=== PATIENT | female | born 1935 | race Caucasian/White ===

== ENCOUNTER 2018-04-24 17:41 | Inpatient (IN) | payer MEDICARE ==
[~2018-04-24] VITALS: Ht 157.5 cm; Wt 39.0 kg
[~2018-04-24 17:41] MED LIST: CARV3.12 PO; CLON0.5T23 PO; COU1T PO; DIGO125T97 PO; FAMO-128 PO; LIDO30CR23 TP; PRAV40TA3 PO; TRAM50TA2 PO; WARF1TAB83 PO
[2018-04-24 18:36] LABS: CLARITY,URINE Cloudy (Clear); COLOR,URINE RED (Yellow); UA COLLECTION TYPE CLN CATCH MIDSTREAM
[2018-04-24 18:40] LABS: BACTERIA,URINE FEW /HPF (Neg); RBC,URINE TNTC /HPF (0-2); SQUAMOUS EPITHELIAL CELL,UR FEW /LPF (FEW)
[2018-04-24 19:03] LABS: BASOPHILS % (AUTO) 0.4 % (0-1); EOSINOPHILS # (AUTO) 0.2 X10'3 (0-0.9); EOSINOPHILS % (AUTO) 2.2 % (0-6); HEMOGLOBIN 13.2 g/dl (12.0-16.0); LYMPHOCYTES % (AUTO) 27.5 % (21-51); MEAN CORPUSCULAR HEMOGLOBIN 31.4 PG (27.0-31.0); MEAN CORPUSCULAR HGB CONC 31.4 % (33.0-36.5); MEAN CORPUSCULAR VOLUME 99.8 FL (78-98); MEAN PLATELET VOLUME 8.5 FL (7.4-10.4); MONOCYTES # (AUTO) 0.9 X10'3 (0-0.9); MONOCYTES % (AUTO) 12.4 % (2-12); NEUTROPHILS # (AUTO) 4.3 X10'3 (1.8-7.7); NEUTROPHILS % (AUTO) 57.5 % (42-75); PLATELET COUNT 172 X10'3 (140-440); RED BLOOD COUNT 4.21 X10'6 (4.20-5.60); RED CELL DISTRIBUTION WIDTH 13.9 % (11.5-14.5); WHITE BLOOD COUNT 7.4 X10'3 (4.5-11.0)
[2018-04-24] MEDS ORDERED: CEPH500C5 PO (19:07)
[2018-04-24] MEDS ORDERED: cephalexin 250mg capsule PO ONE (19:10)
--- NOTE | 2018-04-24 19:22 | NUR ---
LAB CALLED WITH A PT 246.5, INR 29. PER DR DEVINE THE LAB IS TO REDRAW
[2018-04-24 20:04] LABS: PROTHROMBIN TIME > 148.0 SECONDS (9.0-12.0)
[2018-04-24 20:05] LABS: INR > 9.0 INR
[2018-04-24] MEDS ORDERED: phytonadione inj. 10 MG in normal saline 100ml IV soln 99 ML IV ONE (20:10)
--- NOTE | 2018-04-24 20:47 | NUR ---
CHARGE NURSE IMAN HOUSTON SPOKE WITH DR DEVINE AND NEW LABS DRAW FOR INR, PTT ARE TO BE DRAWN IN THE AM.
[2018-04-24] MEDS ORDERED: temazepam 15mg capsule PO PRN (21:00)
[2018-04-24] MEDS ORDERED: RAMI5CAP65 PO (21:36)
--- NOTE | 2018-04-24 21:46 | NUR ---
WHEN COMPLETING THE PATIENTS MED RECONCILIATION, IT WAWS NOTED THAT THE PATIENT WAS TO BE TAKING COUMADIN 1MG TABS X 3 ON , 1MG TABS X 4 ON , AND THE PATIENTS LATEST COUMADIN PRESCRIPTION FILL WAS FOR 3 MG TABS THAT THE PATIENT WAS STILL TAKING ACCORDING TO THE 1MG TAB SCHEDULE, FOR A TOTAL OF 9MG ON AND 12MG ON , STRATEGY EXECUTION CONSULTANT INFORMED, WILL INFORM MD AND HOSPITALIST
[2018-04-24] MEDS ORDERED: normal saline 1000ml 1,000 ML IV SCH (22:48)
[2018-04-24] MEDS ORDERED: HYDROmorphone 1 mg/ml syringe IV PRN (22:50)
[2018-04-24] MEDS ORDERED: acetaminophen 650mg rectal suppository RC PRN (22:50)
[2018-04-24] MEDS ORDERED: metoclopramide 5 mg/ml inj IV PRN (22:50)
[2018-04-24] MEDS ORDERED: diphenhydrAMINE 50 mg/ml inj IV PRN (22:50)
[2018-04-24] MEDS ORDERED: magnesium hydroxide 30ml (MOM) UD suspension PO PRN (22:50)
[2018-04-24] MEDS ORDERED: diphenhydrAMINE 25mg capsule PO PRN (22:50)
[2018-04-24] MEDS ORDERED: morphine 4 MG/ML inj SYRINge IV PRN (22:50)
[2018-04-24] MEDS ORDERED: HYDROcodone/acetaminophen 5mg/325mg tablet PO PRN (22:50)
[2018-04-24] MEDS ORDERED: mag hydrox/Alum hydrox/simeth 30ml oral suspension PO PRN (22:50)
[2018-04-24] MEDS ORDERED: ondansetron/PF 4mg/2ml inj IV PRN (22:50)
[2018-04-24] MEDS ORDERED: acetaminophen 325mg tablet PO PRN ×2 (22:50)
[2018-04-24] MEDS ORDERED: bisacodyl 10mg suppository rectal RC PRN (22:50)
[2018-04-24 22:58] VITALS: BP 149/82
--- NOTE | 2018-04-24 23:01 | NUR ---
FFP JUMBO PK STARTED, PT WITH STABLE VS. AT BEDSIDE. CXR JUST COMPLETED
[2018-04-24 23:16] VITALS: BP 142/105
[2018-04-24 23:29] LABS: MAGNESIUM 1.7 MG/DL (1.5-2.4); PHOSPHORUS 3.2 MG/DL (2.3-4.5)
[2018-04-24 23:36] VITALS: BP 128/64
[2018-04-25] VITALS: BP 136/53
--- NOTE | 2018-04-25 | NUR ---
pt arrived to 4020b from er. pt ambulated to bed from [facility]. pt has been oriented to the room and her at the bedside. vss. received report from ER nurse prior to pt's arrival.
--- NOTE | 2018-04-25 02:23 | NUR ---
pt had 8sec of svt and hr went up to 180's per tele monitor. currently hr85, 120/55 93% rr16. asymptomatic. notified dr. palacio and no new order received.
--- NOTE | 2018-04-25 06:12 | NUR ---
Problems reprioritized. Patient report given, questions answered & plan of care reviewed with ROSEMARIE REINOSO.
--- NOTE | 2018-04-25 06:29 | NUR ---
Received report from Sita HOUSTON
[2018-04-25 07:29] VITALS: BP 114/47
[2018-04-25] MEDS: CefTRIAXone/D5W-Rocephin 1gm 50 ML IV SCH (07:34)
[2018-04-25] MEDS: docusate sod 100mg capsule PO SCH ×2 (07:37→20:00)
[2018-04-25 08:26] LABS: BASOPHILS % (AUTO) 0.4 % (0-1); EOSINOPHILS # (AUTO) 0.2 X10'3 (0-0.9); EOSINOPHILS % (AUTO) 3.5 % (0-6); HEMATOCRIT 35.1 % (35.0-45.0); HEMOGLOBIN 11.9 g/dl (12.0-16.0); LYMPHOCYTES # (AUTO) 1.5 X10'3 (1.1-4.8); LYMPHOCYTES % (AUTO) 25.6 % (21-51); MEAN CORPUSCULAR HEMOGLOBIN 33.3 PG (27.0-31.0); MEAN CORPUSCULAR HGB CONC 34.1 % (33.0-36.5); MEAN CORPUSCULAR VOLUME 97.8 FL (78-98); MEAN PLATELET VOLUME 8.5 FL (7.4-10.4); MONOCYTES # (AUTO) 0.7 X10'3 (0-0.9); MONOCYTES % (AUTO) 12.1 % (2-12); NEUTROPHILS # (AUTO) 3.4 X10'3 (1.8-7.7); NEUTROPHILS % (AUTO) 58.4 % (42-75); PLATELET COUNT 132 X10'3 (140-440); RED BLOOD COUNT 3.59 X10'6 (4.20-5.60); RED CELL DISTRIBUTION WIDTH 13.6 % (11.5-14.5); WHITE BLOOD COUNT 5.8 X10'3 (4.5-11.0)
[2018-04-25 08:29] LABS: INR 1.4 INR; PROTHROMBIN TIME 14.1 SECONDS (9.0-12.0)
[2018-04-25 08:33] LABS: ALANINE AMINOTRANSFERASE 23 U/L (12-78); ALBUMIN 2.9 G/DL (3.4-5.0); ALBUMIN/GLOBULIN RATIO 0.8 (1.1-1.5); ALKALINE PHOSPHATASE 57 IU/L (46-116); ANION GAP 8 (8-16); ASPARTATE AMINO TRANSFERASE 20 U/L (10-37); BILIRUBIN,TOTAL 1.4 MG/DL (0.1-1.0); BLOOD UREA NITROGEN 16 MG/DL (7-18); BUN/CREATININE RATIO 24.6 (6.6-38.0); CALCIUM 8.3 MG/DL (8.5-10.1); CHLORIDE 104 MMOL/L (99-107); CREATININE 0.65 MG/DL (0.40-0.90); GLUCOSE 91 MG/DL (70-104); POTASSIUM 3.7 MMOL/L (3.5-5.1); SODIUM 140 MMOL/L (135-145); TOTAL CARBON DIOXIDE 28.2 MMOL/L (24-32); TOTAL PROTEIN 6.4 G/DL (6.4-8.2); eGFR 87 ML/MIN
[2018-04-25 11:00] VITALS: BP 108/47
--- NOTE | 2018-04-25 17:26 | NUR ---
Paged Dr. Gunn about the 9 beat run of PSVT. Have not received a phone call back.
[2018-04-25 18:00] VITALS: BP 129/61
--- NOTE | 2018-04-25 18:25 | NUR ---
Received report from Amber HOUSTON, assumed care of patient.
[2018-04-25] MEDS: lactobacillus rhamnosus 10,000 MMU CELLS/CAPSULE PO SCH (20:24)
[2018-04-25] MEDS ORDERED: famotidine 20mg tablet PO SCH (21:00)
[2018-04-25 22:00] VITALS: BP 121/65
[2018-04-26 06:00] VITALS: BP 127/53
--- NOTE | 2018-04-26 06:20 | NUR ---
Patient in room ORTHO 4020. I have received report from WINDY HOUSTON and had the opportunity to ask questions and assume patient care.
--- NOTE | 2018-04-26 06:34 | NUR ---
Report given to Georgi HOUSTON.
--- NOTE | 2018-04-26 07:00 | NUR ---
PATIENT REFUSING SCD'S, EDUCATED PATIENT ON IMPORTANCE. WILL CONTINUE TO MONITOR.
[2018-04-26 07:05] LABS: BASOPHILS % (AUTO) 0.4 % (0-1); EOSINOPHILS # (AUTO) 0.2 X10'3 (0-0.9); EOSINOPHILS % (AUTO) 3.6 % (0-6); HEMATOCRIT 34.8 % (35.0-45.0); HEMOGLOBIN 11.5 g/dl (12.0-16.0); LYMPHOCYTES # (AUTO) 1.4 X10'3 (1.1-4.8); LYMPHOCYTES % (AUTO) 26.9 % (21-51); MEAN CORPUSCULAR HEMOGLOBIN 33.1 PG (27.0-31.0); MEAN CORPUSCULAR HGB CONC 33.2 % (33.0-36.5); MEAN CORPUSCULAR VOLUME 99.8 FL (78-98); MEAN PLATELET VOLUME 8.4 FL (7.4-10.4); MONOCYTES # (AUTO) 0.7 X10'3 (0-0.9); MONOCYTES % (AUTO) 13.1 % (2-12); PLATELET COUNT 107 X10'3 (140-440); RED BLOOD COUNT 3.48 X10'6 (4.20-5.60); RED CELL DISTRIBUTION WIDTH 13.7 % (11.5-14.5); WHITE BLOOD COUNT 5.4 X10'3 (4.5-11.0)
[2018-04-26 07:18] LABS: ALANINE AMINOTRANSFERASE 23 U/L (12-78); ALBUMIN 2.6 G/DL (3.4-5.0); ALBUMIN/GLOBULIN RATIO 0.7 (1.1-1.5); ALKALINE PHOSPHATASE 49 IU/L (46-116); ANION GAP 8 (8-16); ASPARTATE AMINO TRANSFERASE 21 U/L (10-37); BILIRUBIN,TOTAL 0.8 MG/DL (0.1-1.0); BLOOD UREA NITROGEN 11 MG/DL (7-18); BUN/CREATININE RATIO 18.3 (6.6-38.0); CHLORIDE 106 MMOL/L (99-107); GLUCOSE 107 MG/DL (70-104); POTASSIUM 3.6 MMOL/L (3.5-5.1); SODIUM 142 MMOL/L (135-145); TOTAL CARBON DIOXIDE 28.5 MMOL/L (24-32); TOTAL PROTEIN 6.1 G/DL (6.4-8.2); eGFR > 90 ML/MIN
[2018-04-26] MEDS: docusate sod 100mg capsule PO SCH (08:00)
[2018-04-26] MEDS: CefTRIAXone/D5W-Rocephin 1gm 50 ML IV SCH (08:24)
[2018-04-26] MEDS: lactobacillus rhamnosus 10,000 MMU CELLS/CAPSULE PO SCH (08:25)
[2018-04-26 10:00] VITALS: BP 135/72
== END 2018-04-26 15:36 | disposition home or self-care (01) | DRG 813 ==
LOC: ER 17:42 → ED HOLD 22:48 → ORTHO 4S 23:57
PROVIDERS: ADMIT Family Medicine; ATTEND Internal Medicine
PROC: 30233K1 Transfusion of Nonautologous Frozen Plasma into Peripheral Vein, Percutaneous Approach (ICD-10-PCS; principal; 2018-04-24)
DX: D68.32 Hemorrhagic disorder due to extrinsic circulating anticoagulants (principal); E43 Unspecified severe protein-calorie malnutrition; Z68.1 Body mass index [BMI] 19.9 or less, adult; I69.354 Hemiplegia and hemiparesis following cerebral infarction affecting left non-dominant side; J44.9 Chronic obstructive pulmonary disease, unspecified; E78.00 Pure hypercholesterolemia, unspecified; R31.0 Gross hematuria; E78.5 Hyperlipidemia, unspecified; I11.0 Hypertensive heart disease with heart failure; I48.2 Chronic atrial fibrillation; I50.9 Heart failure, unspecified; T45.515A Adverse effect of anticoagulants, initial encounter; Z79.01 Long term (current) use of anticoagulants; Z79.899 Other long term (current) drug therapy; Z88.5 Allergy status to narcotic agent; Z87.442 Personal history of urinary calculi
CPT/HCPCS: 36415; 71045; 80053; 80162; 81001; 83735; 83880; 84100; 84443; 85025; 85610; 86885; 86900; 86901; 87070; 87088; 96365; 99285; G0378; J0696; J3430; J7030; P9017

== ENCOUNTER 2019-07-16 14:49 | Inpatient (IN) | payer MEDICARE ==
[~2019-07-16] VITALS: Ht 157.5 cm; Wt 60.2 kg
[2019-07-16] MEDS: normal saline 1000ml 1,000 ML IV SCH (01:00)
[2019-07-16] MEDS: nitroPRUSSIDE (NIPRIDE) (200MCG/ML) 100ML Drip IV SCH (01:00)
[~2019-07-16 14:49] MED LIST changes: -CLON0.5T23 PO; -LIDO30CR23 TP; +RAMI5CAP65 PO; -TRAM50TA2 PO; +etomidate 2mg/ml inj. ONE
[2019-07-16] MEDS ORDERED: ondansetron/PF 4mg/2ml inj IV ONE (15:15)
[2019-07-16] MEDS ORDERED: normal saline 1000ML IV soln IVB ONE (15:15)
[2019-07-16 15:41] LABS: BASOPHILS # (AUTO) 0.1 X10'3 (0-0.2); BASOPHILS % (AUTO) 0.6 % (0-1); EOSINOPHILS % (AUTO) 0 % (0-6); HEMATOCRIT 40.3 % (35.0-45.0); HEMOGLOBIN 13.5 g/dl (12.0-16.0); LYMPHOCYTES # (AUTO) 1.3 X10'3 (1.1-4.8); LYMPHOCYTES % (AUTO) 9.5 % (21-51); MEAN CORPUSCULAR HEMOGLOBIN 32.3 PG (27.0-31.0); MEAN CORPUSCULAR HGB CONC 33.4 g/dL (33.0-36.5); MEAN CORPUSCULAR VOLUME 96.7 FL (78-98); MEAN PLATELET VOLUME 7.7 FL (7.4-10.4); MONOCYTES # (AUTO) 1.2 X10'3 (0-0.9); MONOCYTES % (AUTO) 8.5 % (2-12); NEUTROPHILS % (AUTO) 81.4 % (42-75); PLATELET COUNT 183 X10'3 (140-440); RED BLOOD COUNT 4.17 X10'6 (4.20-5.60); RED CELL DISTRIBUTION WIDTH 14.1 % (11.5-14.5); WHITE BLOOD COUNT 13.5 X10'3 (4.5-11.0)
--- NOTE | 2019-07-16 15:45 | NUR ---
medicated for nausea & IV fluids infusing as ordered. chest xray being done.
[2019-07-16 15:52] LABS: ALANINE AMINOTRANSFERASE 14 U/L (12-78); ALBUMIN/GLOBULIN RATIO 0.7 (1.1-1.5); ALKALINE PHOSPHATASE 58 IU/L (46-116); ANION GAP 6 (8-16); ASPARTATE AMINO TRANSFERASE 17 U/L (10-37); BILIRUBIN,TOTAL 0.9 MG/DL (0.1-1.0); BLOOD UREA NITROGEN 19 MG/DL (7-18); BUN/CREATININE RATIO 23.5 (6.6-38.0); CALCIUM 9.4 MG/DL (8.5-10.1); CHLORIDE 103 MMOL/L (99-107); CREATININE 0.81 MG/DL (0.40-0.90); GLUCOSE 138 MG/DL (70-104); LIPASE < 50 U/L (73-393); POTASSIUM 4.2 MMOL/L (3.5-5.1); SODIUM 140 MMOL/L (135-145); TOTAL CARBON DIOXIDE 31.5 MMOL/L (24-32); TOTAL PROTEIN 7.6 G/DL (6.4-8.2); eGFR 68 ML/MIN
[2019-07-16 16:05] LABS: D-DIMER 9.95 MG/L FEU (0-0.50); PARTIAL THROMBOPLASTIN TIME 33 SECONDS (22-32)
[2019-07-16] MEDS ORDERED: iohexol 350MG/ML 100ml bottle IV ONE (16:19)
--- NOTE | 2019-07-16 16:31 | NUR ---
Pt to CT scan as ordered.
[2019-07-16 16:50] LABS: CLARITY,URINE SLIGHTLY CLOUDY (Clear); COLOR,URINE YELLOW (Yellow); GLUCOSE, URINE NEGATIVE (Neg); KETONES,URINE 15 mg/dl (Neg); LEUKOCYTE ESTERASE ,URINE NEGATIVE (Neg); NITRITES, URINE NEGATIVE (Neg); OCCULT BLOOD,URINE MODERATE (Neg); PROTEIN,URINE 30 mg/dl (Neg); UROBILINOGEN,URINE 0.2 E.U/dL (0.2-1.0)
--- NOTE | 2019-07-16 16:51 | NUR ---
returned from CT. tolerated well. warm blankets placed on pt.
[2019-07-16 17:12] LABS: UA COLLECTION TYPE CLN CATCH MIDSTREAM
[2019-07-16 17:13] LABS: MUCUS STRANDS MODERATE /LPF (Neg); SQUAMOUS EPITHELIAL CELL,UR FEW /LPF (FEW); TRANSITIONAL EPI CELLS,URINE FEW /HPF
[2019-07-16 17:15] LABS: BACTERIA,URINE NONE SEEN /HPF (Neg); WBC,URINE 0-4 /HPF (0-4)
[2019-07-16 17:17] LABS: AMMONIUM BIURATE CRYSTALS FEW /HPF (NEGATIVE)
[2019-07-16 17:19] LABS: AMORPHOUS URATES 1+
--- NOTE | 2019-07-16 18:16 | NUR ---
Dr. Santiago at bedside.
[2019-07-16] MEDS ORDERED: ceFAZolin 1000mg inj ONE ×2 (18:18→21:48)
[2019-07-16] MEDS ORDERED: heparin 10,000 units/1 ML INJ ONE (18:18)
[2019-07-16] MEDS ORDERED: LIDOcaine 1% (10mg/ml) 2ml vial ONE (18:18)
[2019-07-16] MEDS ORDERED: phenylephrine 50 MG in NS 250ml IVPB IV SCH (18:20)
[2019-07-16] MEDS ORDERED: [UNRECOGNIZED DRUG - OTHER] IV SCH (18:25)
[2019-07-16] MEDS ORDERED: WATER IV SCH (18:25)
[2019-07-16] MEDS ORDERED: DEXTROSE 5% IV SCH (18:25)
[2019-07-16] MEDS ORDERED: potassium CL 10mEq/100ml bag 100 ML IV PRN (18:35)
[2019-07-16] MEDS ORDERED: potassium Cl 20mEq/100mL bag 100 ML IV PRN ×2 (18:35)
[2019-07-16] MEDS ORDERED: acetaminophen 325mg tablet PO PRN ×2 (18:35)
[2019-07-16] MEDS ORDERED: LIDOcaine 2% 10ml TOPICAL JELLY (Urojet) TP ONE (18:35)
[2019-07-16] MEDS ORDERED: potassium Cl 20 mEq SR tablet PO PRN ×2 (18:35)
[2019-07-16] MEDS ORDERED: ceFOXitin 2 GM ADDvantage bag 100 ML IV ONE (18:35)
--- NOTE | 2019-07-16 18:35 | NUR ---
DR. MERIDA AND DR. BUSBY AT BEDSIDE FOR ADMISSION AND FOR PRE OR CONSULT. PT WITH STABLE VS AND NO PAIN , UNLESS USING ABD MUSCLES TO SIT UP AND HAS PAIN TO ABD. PT IS A&OX4. NO FAMILY AT BEDSIDE. ROSEMARIE CUMMINGS, TALKING WITH OR GRINDER TENDER NOW. EXPECTING PT TO GO TO OR SHORTLY.
--- NOTE | 2019-07-16 18:37 | NUR ---
report given to OR charge
[2019-07-16] MEDS ORDERED: nitroGLYCERIN in D5W 50mg/250ml (Tridil) infusion IV ONE (18:40)
[2019-07-16] MEDS ORDERED: CEFOXITIN IV ONE (18:40)
[2019-07-16] MEDS ORDERED: sevoflurane 250ml liquid IH ONE (18:40)
[2019-07-16] MEDS ORDERED: DEXTROSE IV ONE (18:40)
--- NOTE | 2019-07-16 18:44 | NUR ---
PT TAKEN TO OR FROM er ROOM 8.
--- NOTE | 2019-07-16 18:46 | NUR ---
PT ACCOMPANIED BY KAHLIL QUICK RN, TO OR.
[2019-07-16] MEDS ORDERED: midazolam 2 mg/2 ml injection ONE (18:47)
[2019-07-16] MEDS ORDERED: ceFOXitin sod/dextrose 2g/50ml 100 ML IV ONE (18:50)
[2019-07-16] MEDS ORDERED: fentaNYL /PF 50mcg/ml 5ml ampule ONE (18:50)
[2019-07-16] MEDS: docusate sod 100mg capsule PO SCH (20:00)
[2019-07-16] MEDS: famotidine/PF 10 mg/ml inj IV SCH (20:00)
[2019-07-16] MEDS ORDERED: propofol inj 20 ML IV ONE (20:18)
[2019-07-16] MEDS ORDERED: phenylephrine 10mg/ml inj. ONE (20:18)
[2019-07-16] MEDS ORDERED: esmolol inj. 10 ML IV ONE (20:18)
[2019-07-16] MEDS ORDERED: 0.9 % SODIUM CHLORIDE 10 ML VIAL ONE (20:18)
[2019-07-16] MEDS ORDERED: rocuronium 10mg/ml inj IV ONE ×3 (20:18→23:16)
[2019-07-16] MEDS ORDERED: ePHEDrine 50MG/ML INJ. ONE (20:18)
[2019-07-16] MEDS ORDERED: LIDOcaine 1%/PF 5ML 10 MG/ML VIAL ONE (20:18)
[2019-07-16 21:35] LABS: ABG BASE EXCESS -4.3 mmol/L (-2.0-3.0); ABG HCO3 19.6 mmol/L (22.0-26.0); ABG OXYGEN SATURATION 99.1 % (95-98); ABG PCO2 (T) 27.8 mmHg (35.0-45.0); ABG PH (T) 7.454 (7.350-7.450); ABG PO2 (T) 205.1 mmHg (83-108); FCOHb 0.3 % (0.5-1.5); FO2Hb 98.8 % (94-100); PATIENT TEMPERATURE 34.3; TOTAL HEMOGLOBIN 8.7 G/dl (12.0-16.0)
[2019-07-16] MEDS ORDERED: fentaNYL/PF 50MCG/1 ML 2ML syringe IV PRN (22:05)
[2019-07-16] MEDS ORDERED: midazolam 2 mg/2 ml injection IV PRN (22:05)
[2019-07-16] MEDS ORDERED: propofol 1000mg/100ml bottle 100 ML IV SCH (22:05)
[2019-07-16] MEDS ORDERED: calcium chloride 100 MG/1 ML inj IV ONE (22:09)
[2019-07-16] MEDS ORDERED: sodium bicarbonate (8.4%) inj. 1 MEQ/ML ML ONE (22:09)
[2019-07-16] MEDS ORDERED: sod chloride 0.9% 10ml flush syringe IV ONE ×5 (22:09→22:10)
[2019-07-16] MEDS ORDERED: heparin 1,000unit/ml 10ml vial 10 ML ONE (22:09)
[2019-07-16 22:40] LABS: ABG BASE EXCESS -2.6 mmol/L (-2.0-3.0); ABG HCO3 21.7 mmol/L (22.0-26.0); ABG OXYGEN SATURATION 98.7 % (95-98); ABG PCO2 (T) 28.6 mmHg (35.0-45.0); ABG PH (T) 7.478 (7.350-7.450); FCOHb 0.3 % (0.5-1.5); FMetHb 0.2 % (0.3-1.12); FO2Hb 98.2 % (94-100); PATIENT TEMPERATURE 32.2; TOTAL HEMOGLOBIN 8.9 G/dl (12.0-16.0)
[2019-07-16] MEDS ORDERED: clindamycin phosphate 150mg/ml inj. ONE (22:46)
[2019-07-16] MEDS ORDERED: gentamicin 40 MG/1 ML inj ONE ×4 (22:46→23:16)
[2019-07-17] VITALS (41 sets, daily range): BP systolic 82–122; BP diastolic 34–95
[2019-07-17] MEDS ORDERED: ACETAMINOPHEN 1000 MG/100 ML IV ONE (00:06)
[2019-07-17] MEDS ORDERED: albumin (Human) 5% 250ml 250 ML IV ONE ×3 (00:06→15:30)
[2019-07-17] MEDS ORDERED: ondansetron/PF 4mg/2ml inj IV PRN (00:40)
[2019-07-17 01:11] LABS: ABG BASE EXCESS -3.4 mmol/L (-2.0-3.0); ABG HCO3 21.8 mmol/L (22.0-26.0); ABG OXYGEN SATURATION 98.3 % (95-98); ABG PCO2 (T) 36.2 mmHg (35.0-45.0); ABG PH (T) 7.388 (7.350-7.450); ABG PO2 (T) 154.3 mmHg (83-108); FCOHb 0.3 % (0.5-1.5); FMetHb 0.5 % (0.3-1.12); FO2Hb 97.5 % (94-100); PATIENT TEMPERATURE 34.6; TOTAL HEMOGLOBIN 6.4 G/dl (12.0-16.0)
[2019-07-17 01:48] LABS: BASOPHILS % (AUTO) 0.1 % (0-1); EOSINOPHILS % (AUTO) 0 % (0-6); LYMPHOCYTES # (AUTO) 0.9 X10'3 (1.1-4.8); LYMPHOCYTES % (AUTO) 7.8 % (21-51); MEAN CORPUSCULAR HEMOGLOBIN 33.5 PG (27.0-31.0); MEAN CORPUSCULAR HGB CONC 34.2 g/dL (33.0-36.5); MEAN PLATELET VOLUME 7.8 FL (7.4-10.4); MONOCYTES # (AUTO) 0.9 X10'3 (0-0.9); MONOCYTES % (AUTO) 7.9 % (2-12); NEUTROPHILS # (AUTO) 9.2 X10'3 (1.8-7.7); NEUTROPHILS % (AUTO) 84.2 % (42-75); PLATELET COUNT 87 X10'3 (140-440); RED BLOOD COUNT 1.97 X10'6 (4.20-5.60); RED CELL DISTRIBUTION WIDTH 13.9 % (11.5-14.5); WHITE BLOOD COUNT 10.9 X10'3 (4.5-11.0)
[2019-07-17 01:51] LABS: HEMATOCRIT 19.4 % (35.0-45.0); HEMOGLOBIN 6.6 g/dl (12.0-16.0)
[2019-07-17] MEDS: potassium CL 20mEq in D5-1/2NS 1,000 ML IV SCH ×4 (02:00→20:34)
[2019-07-17 02:03] LABS: ALANINE AMINOTRANSFERASE 55 U/L (12-78); ALBUMIN 2.4 G/DL (3.4-5.0); ALBUMIN/GLOBULIN RATIO 1.5 (1.1-1.5); ALKALINE PHOSPHATASE 20 IU/L (46-116); ANION GAP 6 (8-16); ASPARTATE AMINO TRANSFERASE 100 U/L (10-37); BILIRUBIN,TOTAL 1.3 MG/DL (0.1-1.0); BLOOD UREA NITROGEN 14 MG/DL (7-18); BUN/CREATININE RATIO 20.9 (6.6-38.0); CALCIUM 7.4 MG/DL (8.5-10.1); CHLORIDE 113 MMOL/L (99-107); CREATININE 0.67 MG/DL (0.40-0.90); GLUCOSE 135 MG/DL (70-104); POTASSIUM 3.7 MMOL/L (3.5-5.1); SODIUM 146 MMOL/L (135-145); TOTAL CARBON DIOXIDE 26.7 MMOL/L (24-32); eGFR 84 ML/MIN
[2019-07-17 02:07] LABS: MAGNESIUM 1.3 MG/DL (1.5-2.4); PHOSPHORUS 2.9 MG/DL (2.3-4.5); TRIGLYCERIDES 17 MG/DL (20-135)
[2019-07-17 02:18] LABS: PARTIAL THROMBOPLASTIN TIME > 139 SECONDS (22-32)
[2019-07-17 04:11] LABS: OXYGEN SATURATION (MIXED VEN) 62.9 % (60-80); PO2 MIXED VENOUS (TEMP COR) 31.9 mmHg (35-46)
--- NOTE | 2019-07-17 04:16 | NUR ---
0100..Received to room 2043b, accompanied by Willow Garcia and surgical crew. Placed on ventilator, to hand weaver, arterial line and CVP to pressure tubing and monitor. Ricci cath to gravity drainage. Dressings are dry and intact. See assessment record. All vasoactive drugs are infusing via central line. Assessment as noted.
[2019-07-17] MEDS ORDERED: NORepinephrine 8mg/ 250ml NS 250 ML IV PRN (04:46)
--- NOTE | 2019-07-17 05:08 | NUR ---
0300..Hgb/Hct Artemio lockett AWAKE OVERNIGHT COUNSELOR notified, orders received
--- NOTE | 2019-07-17 05:09 | NUR ---
0330..PRBC infusing per orders, with no reactions noted. No other changes noted.
--- NOTE | 2019-07-17 05:11 | NUR ---
0400..Transfusion continues, pt starting to wake up, no other changes noted.
--- NOTE | 2019-07-17 05:47 | NUR ---
0445..Transfusion complete no reactions noted. More awake. No other changes noted.
[2019-07-17 06:02] LABS: BASOPHILS % (AUTO) 0.1 % (0-1); EOSINOPHILS % (AUTO) 0 % (0-6); HEMATOCRIT 25.8 % (35.0-45.0); HEMOGLOBIN 8.8 g/dl (12.0-16.0); LYMPHOCYTES # (AUTO) 0.8 X10'3 (1.1-4.8); LYMPHOCYTES % (AUTO) 4.9 % (21-51); MEAN CORPUSCULAR HEMOGLOBIN 31.8 PG (27.0-31.0); MEAN CORPUSCULAR VOLUME 93.4 FL (78-98); MEAN PLATELET VOLUME 7.9 FL (7.4-10.4); NEUTROPHILS # (AUTO) 14.1 X10'3 (1.8-7.7); PLATELET COUNT 72 X10'3 (140-440); RED BLOOD COUNT 2.77 X10'6 (4.20-5.60); RED CELL DISTRIBUTION WIDTH 15.7 % (11.5-14.5); WHITE BLOOD COUNT 15.8 X10'3 (4.5-11.0)
--- NOTE | 2019-07-17 06:18 | NUR ---
0615..Problems reprioritized. Patient report given, questions answered & plan of care reviewed with Conchita HOUSTON .
[2019-07-17 06:27] LABS: PARTIAL THROMBOPLASTIN TIME 57 SECONDS (22-32)
--- NOTE | 2019-07-17 06:30 | NUR ---
Patient in room ICU 2042. I have received report from ROSEMARIE Nash and had the opportunity to ask questions and assume patient care.
[2019-07-17] MEDS: morphine 2 MG/ML inj. syringe IV PRN ×2 (07:18→11:10)
[2019-07-17] MEDS: famotidine/PF 10 mg/ml inj IV SCH ×2 (07:18→20:34)
[2019-07-17] MEDS: docusate sod 100mg capsule PO SCH ×2 (07:22→20:00)
[2019-07-17] MEDS: normal saline 1000ml 1,000 ML IV SCH ×2 (07:22→20:35)
[2019-07-17] MEDS ORDERED: ceFOXitin 1 GM/D5W 50mL IVPB 50 ML IV SCH (08:00)
[2019-07-17 08:13] LABS: LARGE PLATELETS FEW; PLATELET ESTIMATE DECREASED
[2019-07-17] MEDS: albuterol 2.5 MG/3 ML nebule NEB SCH ×4 (08:17→19:47)
[2019-07-17 08:21] LABS: PARTIAL THROMBOPLASTIN TIME 50 SECONDS (22-32)
--- NOTE | 2019-07-17 08:50 | NUR ---
Called Dr Santiago to give update on PTT trends, he states okay to stop PTT draws. Updated on stable H/H but significant change in platelets, no changes in orders. BP range ok to be in the 90s systolic, regarding weaning to extubation he states he will be in to assess patient in an hour.
--- NOTE | 2019-07-17 10:20 | NUR ---
Dr Mandel given full update on patient's status at bedside. Discussed kidney function and he rested labs on urine, replace mag, continue monitoring serum labs including CPK and myoglobin. Recommends switching ABX, will discuss with Dr Santiago.
--- NOTE | 2019-07-17 10:45 | NUR ---
Dr Santiago at bedside, discussed details of patient status in detail. He states okay to turn of diprovan, work towards extubation, okay to follow Dr Mandel's recommendations for UO tests, switch to zosyn from mefoxin, check labs later this afternoon. Give a bottle of albumin. He'd prefer SBP to be higher than 90s but not too high in the 140s/150s.
[2019-07-17] MEDS ORDERED: magnesium 4gm in 100ml NS 100 ML IV PRN (10:50)
[2019-07-17] MEDS ORDERED: magnesium Cl slow-release 64mg tablet PO PRN (10:50)
[2019-07-17] MEDS ORDERED: magnesium 2GM in 50ml NS 50 ML IV PRN (10:50)
--- NOTE | 2019-07-17 11:32 | NUR ---
Initial: Pt admitted with abdominal pain and leaking infrarenal abdominal aortic aneurysm. Pt currently intubated s/p repair of leaking abdominal aortic aneurysm, right common iliac endarterectomy, right iliofemoral bypass, and right oophorectomy. TF recommendations below for if expected prolonged intubation and to receive nutrition support. TF recs are calculated to meet estimated nutrient needs using IBW as pt currently with an underweight BMI. Current wt appears stable with scaled wt hx. Pt with low Henok of 12. Per physical assessment pt with no edema and with surgical wound to abdomen and right hip/groin with wound VAC. Will continue to follow closely. Recommendations: 1) If EN, continuous Vital AF with goal rate of 55 mL/hr 2) If EN, additional 100 mL water flush Q4H 3) If EN, prealbumin q /; daily weights 4) Once extubated advance diet as medically indicated to regular 5) Routine bowel care Addendum: 07/17/19 at [address] Amended: Links added.
[2019-07-17 11:39] LABS: BASOPHILS # (AUTO) 0.2 X10'3 (0-0.2); BASOPHILS % (AUTO) 0.8 % (0-1); EOSINOPHILS % (AUTO) 0 % (0-6); HEMATOCRIT 26.6 % (35.0-45.0); LYMPHOCYTES # (AUTO) 1.6 X10'3 (1.1-4.8); LYMPHOCYTES % (AUTO) 8.4 % (21-51); MEAN CORPUSCULAR HEMOGLOBIN 31.5 PG (27.0-31.0); MEAN CORPUSCULAR HGB CONC 33.9 g/dL (33.0-36.5); MEAN CORPUSCULAR VOLUME 92.8 FL (78-98); MEAN PLATELET VOLUME 8.4 FL (7.4-10.4); MONOCYTES # (AUTO) 1.2 X10'3 (0-0.9); MONOCYTES % (AUTO) 6.4 % (2-12); NEUTROPHILS # (AUTO) 15.5 X10'3 (1.8-7.7); NEUTROPHILS % (AUTO) 84.4 % (42-75); PLATELET COUNT 84 X10'3 (140-440); RED BLOOD COUNT 2.87 X10'6 (4.20-5.60); RED CELL DISTRIBUTION WIDTH 16.2 % (11.5-14.5); WHITE BLOOD COUNT 18.4 X10'3 (4.5-11.0)
[2019-07-17 12:13] LABS: ALBUMIN 2.5 G/DL (3.4-5.0); ANION GAP 7 (8-16); BLOOD UREA NITROGEN 19 MG/DL (7-18); BUN/CREATININE RATIO 25.7 (6.6-38.0); CALCIUM 7.6 MG/DL (8.5-10.1); CHLORIDE 113 MMOL/L (99-107); CREATINE KINASE 247 U/L (26-192); CREATININE 0.74 MG/DL (0.40-0.90); GLUCOSE 189 MG/DL (70-104); POTASSIUM 3.8 MMOL/L (3.5-5.1); SODIUM 143 MMOL/L (135-145); TOTAL CARBON DIOXIDE 23.5 MMOL/L (24-32); eGFR 75 ML/MIN
[2019-07-17 13:22] LABS: CLARITY,URINE CLOUDY (Clear); COLOR,URINE YELLOW (Yellow); GLUCOSE, URINE NEGATIVE (Neg); KETONES,URINE NEGATIVE (Neg); LEUKOCYTE ESTERASE ,URINE NEGATIVE (Neg); NITRITES, URINE NEGATIVE (Neg); OCCULT BLOOD,URINE LARGE (Neg); PROTEIN,URINE TRACE mg/dl (Neg); UROBILINOGEN,URINE 0.2 E.U/dL (0.2-1.0)
[2019-07-17 13:26] LABS: UA COLLECTION TYPE NON-SPECIFIED
[2019-07-17 13:29] LABS: SODIUM,URINE RANDOM < 15 MEQ/L
[2019-07-17 13:31] LABS: HYALINE CASTS >30 /LPF (NEGATIVE)
[2019-07-17 13:32] LABS: SQUAMOUS EPITHELIAL CELL,UR FEW /LPF (FEW)
[2019-07-17 13:33] LABS: BACTERIA,URINE 2+ /HPF (Neg); RBC,URINE TNTC /HPF (0-2)
[2019-07-17 14:20] LABS: UA EOSINOPHILS NO EOS /HPF
[2019-07-17] MEDS ORDERED: naloxone 0.4 mg/ml inj IV PRN (14:45)
--- NOTE | 2019-07-17 15:10 | NUR ---
Pt extubated to 3L with RT and RN present, tolerated very well. Talking and responding to questions appropriately. C/O of no pain but dry mouth.
--- NOTE | 2019-07-17 15:20 | NUR ---
Dr Santiago at bedside given up date on extubation, kidney function, labs and BP. He states to give more albumin, take out OG, start PT tomorrow, do more labs at 1600.
[2019-07-17 15:37] LABS: OSMOLALITY UA 581 MOSM/K (50-1400)
[2019-07-17] MEDS: piperacillin/tazo 3.375gm/50ml 50 ML IV SCH ×2 (15:39→23:54)
[2019-07-17 16:33] LABS: BASOPHILS # (AUTO) 0.1 X10'3 (0-0.2); BASOPHILS % (AUTO) 0.4 % (0-1); EOSINOPHILS % (AUTO) 0 % (0-6); HEMATOCRIT 24.9 % (35.0-45.0); HEMOGLOBIN 8.2 g/dl (12.0-16.0); LYMPHOCYTES # (AUTO) 1.9 X10'3 (1.1-4.8); LYMPHOCYTES % (AUTO) 9.8 % (21-51); MEAN CORPUSCULAR HEMOGLOBIN 30.9 PG (27.0-31.0); MEAN CORPUSCULAR HGB CONC 32.8 g/dL (33.0-36.5); MEAN CORPUSCULAR VOLUME 94.3 FL (78-98); MEAN PLATELET VOLUME 8.4 FL (7.4-10.4); MONOCYTES # (AUTO) 1.3 X10'3 (0-0.9); MONOCYTES % (AUTO) 6.7 % (2-12); NEUTROPHILS # (AUTO) 15.8 X10'3 (1.8-7.7); NEUTROPHILS % (AUTO) 83.1 % (42-75); PLATELET COUNT 90 X10'3 (140-440); RED BLOOD COUNT 2.65 X10'6 (4.20-5.60); RED CELL DISTRIBUTION WIDTH 16.9 % (11.5-14.5)
[2019-07-17] MEDS ORDERED: albumin (human) 25% 100 ML IV solution IV ONE (17:25)
--- NOTE | 2019-07-17 17:48 | NUR ---
Called Dr Santiago to report INR still high at 2.5, UO still low and BP starting to trend down a little, and he agrees with Dr Mandel's recommendation of 2 units of FFP. If BP still running low, give the Albumin. Phone call discussed with Dr Mandel and he is in agreement with plan.
[2019-07-17 18:11] LABS: TOTAL CELLS COUNTED 100
[2019-07-17 18:12] LABS: ANISOCYTOSIS 1+; PLATELET ESTIMATE DECREASED; TOXIC GRANULATION 3+; TOXIC VACUOLATION FEW
[2019-07-17 18:13] LABS: BURR CELLS 1+
--- NOTE | 2019-07-17 18:25 | NUR ---
Problems reprioritized. Patient report given, questions answered & plan of care reviewed with ROSEMARIE Blanco.
[2019-07-17] MEDS: lactobacillus rhamnosus 10,000 MMU CELLS/CAPSULE PO SCH (20:00)
[2019-07-17] MEDS: morphine 4 MG/ML inj SYRINge IV PRN (20:34)
--- NOTE | 2019-07-17 21:41 | NUR ---
183..Patient in room ICU 2042. I have received report from Lexy HOUSTON and had the opportunity to ask questions and assume patient care.
--- NOTE | 2019-07-17 21:42 | NUR ---
1999..Assessment as noted, requested pain medication for complaints of incisional pain 01/31, with morphine with good effect.
[2019-07-18] VITALS (28 sets, daily range): BP systolic 96–132; BP diastolic 42–69
--- NOTE | 2019-07-18 00:42 | NUR ---
0000..No changes noted.
[2019-07-18] MEDS: morphine 4 MG/ML inj SYRINge IV PRN (00:52)
--- NOTE | 2019-07-18 01:54 | NUR ---
0100..Complained of incisional pain /, medicated with morphine 4mg iv with good effect. Has very weak cough and no gag reflex at this time, no further ice chips will be given, No other changes noted.
[2019-07-18] MEDS: mineral oil/petrolatum ophthal oint EACHEYE SCH ×2 (01:58→08:00)
[2019-07-18 02:48] LABS: BASOPHILS % (AUTO) 0.1 % (0-1); EOSINOPHILS % (AUTO) 0.1 % (0-6); LYMPHOCYTES # (AUTO) 1.3 X10'3 (1.1-4.8); MEAN CORPUSCULAR HEMOGLOBIN 31.4 PG (27.0-31.0); MEAN CORPUSCULAR HGB CONC 33.6 g/dL (33.0-36.5); MEAN CORPUSCULAR VOLUME 93.5 FL (78-98); MONOCYTES # (AUTO) 1.1 X10'3 (0-0.9); MONOCYTES % (AUTO) 7.2 % (2-12); NEUTROPHILS # (AUTO) 13.5 X10'3 (1.8-7.7); NEUTROPHILS % (AUTO) 84.6 % (42-75); PLATELET COUNT 81 X10'3 (140-440); RED BLOOD COUNT 2.21 X10'6 (4.20-5.60); RED CELL DISTRIBUTION WIDTH 17.2 % (11.5-14.5)
[2019-07-18 03:01] LABS: HEMATOCRIT 20.7 % (35.0-45.0); HEMOGLOBIN 6.9 g/dl (12.0-16.0)
[2019-07-18 03:02] LABS: ALANINE AMINOTRANSFERASE 38 U/L (12-78); ALBUMIN 3.3 G/DL (3.4-5.0); ALBUMIN/GLOBULIN RATIO 1.9 (1.1-1.5); ALKALINE PHOSPHATASE 24 IU/L (46-116); ANION GAP 5 (8-16); ASPARTATE AMINO TRANSFERASE 44 U/L (10-37); BILIRUBIN,TOTAL 0.9 MG/DL (0.1-1.0); BLOOD UREA NITROGEN 17 MG/DL (7-18); BUN/CREATININE RATIO 24.3 (6.6-38.0); CALCIUM 7.8 MG/DL (8.5-10.1); CHLORIDE 111 MMOL/L (99-107); GLUCOSE 156 MG/DL (70-104); PHOSPHORUS 1.5 MG/DL (2.3-4.5); POTASSIUM 3.9 MMOL/L (3.5-5.1); SODIUM 142 MMOL/L (135-145); TOTAL CARBON DIOXIDE 25.7 MMOL/L (24-32); eGFR 80 ML/MIN
--- NOTE | 2019-07-18 04:55 | NUR ---
0415..One unit PRBC infusing, per orders, no reactions noted. No other changes noted.
--- NOTE | 2019-07-18 04:56 | NUR ---
0445..Transfusion continues, no reactions noted.
[2019-07-18] MEDS: potassium CL 20mEq in D5-1/2NS 1,000 ML IV SCH ×3 (05:30→21:39)
--- NOTE | 2019-07-18 06:11 | NUR ---
0600..Transfusion continues, no reactions noted.
--- NOTE | 2019-07-18 06:15 | NUR ---
Patient in room ICU 2042. I have received report from security shift supervisor and had the opportunity to ask questions and assume patient care.
--- NOTE | 2019-07-18 06:15 | NUR ---
Patient in room ICU 2042. I have received report from night baker and had the opportunity to ask questions and assume patient care.
--- NOTE | 2019-07-18 06:17 | NUR ---
0615..Problems reprioritized. Patient report given, questions answered & plan of care reviewed with Conchita HOUSTON.
[2019-07-18] MEDS: nitroPRUSSIDE (NIPRIDE) (200MCG/ML) 100ML Drip IV SCH (07:33)
[2019-07-18] MEDS: docusate sod 100mg capsule PO SCH ×2 (08:03→20:00)
[2019-07-18] MEDS: piperacillin/tazo 3.375gm/50ml 50 ML IV SCH ×3 (08:03→23:56)
[2019-07-18] MEDS: lactobacillus rhamnosus 10,000 MMU CELLS/CAPSULE PO SCH ×2 (08:03→20:00)
[2019-07-18] MEDS: famotidine/PF 10 mg/ml inj IV SCH ×2 (08:03→21:40)
[2019-07-18] MEDS: morphine 2 MG/ML inj. syringe IV PRN ×2 (08:04→12:25)
[2019-07-18] MEDS: albuterol 2.5 MG/3 ML nebule NEB SCH ×4 (08:14→20:07)
[2019-07-18 09:22] LABS: HEMATOCRIT 26.4 % (35.0-45.0); HEMOGLOBIN 8.8 g/dl (12.0-16.0); MEAN CORPUSCULAR HEMOGLOBIN 30.1 PG (27.0-31.0); MEAN CORPUSCULAR HGB CONC 33.2 g/dL (33.0-36.5); MEAN CORPUSCULAR VOLUME 90.5 FL (78-98); MEAN PLATELET VOLUME 7.7 FL (7.4-10.4); PLATELET COUNT 80 X10'3 (140-440); RED BLOOD COUNT 2.91 X10'6 (4.20-5.60); RED CELL DISTRIBUTION WIDTH 18.5 % (11.5-14.5); WHITE BLOOD COUNT 15.6 X10'3 (4.5-11.0)
[2019-07-18] MEDS: ondansetron/PF 4mg/2ml inj IV PRN (10:12)
[2019-07-18] MEDS: normal saline 1000ml 1,000 ML IV SCH (10:33)
[2019-07-18] MEDS: HYDROmorphone/NS 1 mg/ml CADD 50 ML IV SCH ×6 (15:00→23:00)
[2019-07-18 16:24] LABS: HEMATOCRIT 24.7 % (35.0-45.0); HEMOGLOBIN 8.2 g/dl (12.0-16.0); MEAN CORPUSCULAR HGB CONC 33.2 g/dL (33.0-36.5); MEAN CORPUSCULAR VOLUME 90.5 FL (78-98); MEAN PLATELET VOLUME 7.3 FL (7.4-10.4); PLATELET COUNT 74 X10'3 (140-440); RED BLOOD COUNT 2.73 X10'6 (4.20-5.60); WHITE BLOOD COUNT 14.1 X10'3 (4.5-11.0)
--- NOTE | 2019-07-18 18:24 | NUR ---
Problems reprioritized. Patient report given, questions answered & plan of care reviewed with oncoming shift.
[2019-07-19] VITALS (23 sets, daily range): BP systolic 100–151; BP diastolic 42–88
[2019-07-19] MEDS: HYDROmorphone/NS 1 mg/ml CADD 50 ML IV SCH ×12 (01:00→23:00)
--- NOTE | 2019-07-19 01:25 | NUR ---
183..Patient in room ICU 2042. I have received report from Conchita HOUSTON and had the opportunity to ask questions and assume patient care.
--- NOTE | 2019-07-19 01:25 | NUR ---
2000..Assessment as noted, pt claims to be painful, despite dilaudid cadd, easily falls back to sleep, and appears comfortable. Pt using cadd 1-2 times an hour. at bedside, update given, no new orders. Pt encouraged to cough, states "can't cough" also refusing to use IS and flutter valve.
--- NOTE | 2019-07-19 01:28 | NUR ---
2300..Continues to refuse cbd,is and flutter valve, nt suctioned per RT for large amount brown,thic sputum, no other changes noted.
--- NOTE | 2019-07-19 01:30 | NUR ---
0000..No changes noted.
[2019-07-19 04:03] LABS: BASOPHILS % (AUTO) 0.1 % (0-1); EOSINOPHILS % (AUTO) 0 % (0-6); HEMATOCRIT 26.1 % (35.0-45.0); HEMOGLOBIN 8.9 g/dl (12.0-16.0); LYMPHOCYTES % (AUTO) 6.5 % (21-51); MEAN CORPUSCULAR HEMOGLOBIN 30.6 PG (27.0-31.0); MEAN CORPUSCULAR VOLUME 89.9 FL (78-98); MONOCYTES % (AUTO) 6.9 % (2-12); NEUTROPHILS % (AUTO) 86.5 % (42-75); PLATELET COUNT 84 X10'3 (140-440); RED BLOOD COUNT 2.91 X10'6 (4.20-5.60); RED CELL DISTRIBUTION WIDTH 18.7 % (11.5-14.5)
[2019-07-19 04:14] LABS: ALANINE AMINOTRANSFERASE 46 U/L (12-78); ALBUMIN 2.5 G/DL (3.4-5.0); ALKALINE PHOSPHATASE 34 IU/L (46-116); ANION GAP 3 (8-16); ASPARTATE AMINO TRANSFERASE 48 U/L (10-37); BILIRUBIN,TOTAL 1.2 MG/DL (0.1-1.0); BLOOD UREA NITROGEN 16 MG/DL (7-18); BUN/CREATININE RATIO 29.1 (6.6-38.0); CALCIUM 7.9 MG/DL (8.5-10.1); CHLORIDE 110 MMOL/L (99-107); CREATININE 0.55 MG/DL (0.40-0.90); GLUCOSE 174 MG/DL (70-104); MAGNESIUM 1.8 MG/DL (1.5-2.4); PHOSPHORUS 1.4 MG/DL (2.3-4.5); POTASSIUM 4.7 MMOL/L (3.5-5.1); SODIUM 138 MMOL/L (135-145); TOTAL CARBON DIOXIDE 25.5 MMOL/L (24-32); eGFR > 90 ML/MIN
[2019-07-19 04:43] LABS: PLATELET ESTIMATE DECREASED
[2019-07-19 04:44] LABS: ANISOCYTOSIS 2+
[2019-07-19] MEDS: potassium CL 20mEq in D5-1/2NS 1,000 ML IV SCH ×2 (05:37→16:39)
--- NOTE | 2019-07-19 06:15 | NUR ---
Patient in room ICU 2042. I have received report from building dismantler and had the opportunity to ask questions and assume patient care.
--- NOTE | 2019-07-19 06:20 | NUR ---
0620..Problems reprioritized. Patient report given, questions answered & plan of care reviewed with Conchita HOUSTON.
[2019-07-19] MEDS: famotidine/PF 10 mg/ml inj IV SCH ×2 (07:20→20:22)
[2019-07-19] MEDS: piperacillin/tazo 3.375gm/50ml 50 ML IV SCH (07:20)
[2019-07-19] MEDS: lactobacillus rhamnosus 10,000 MMU CELLS/CAPSULE PO SCH ×2 (08:00→20:22)
[2019-07-19] MEDS: docusate sod 100mg capsule PO SCH (08:00)
[2019-07-19] MEDS: albuterol 2.5 MG/3 ML nebule NEB SCH ×4 (08:13→19:19)
--- NOTE | 2019-07-19 13:23 | NUR ---
TF consult: Pt has been extubated. S/p BSS today with ST recs NPO and reassess. Corpak has been placed. Per KUB reports the Corpak extends into the duodenal bulb. TF recommendations below. Will continue to follow closely. Initial: Pt admitted with abdominal pain and leaking infrarenal abdominal aortic aneurysm. Pt currently intubated s/p repair of leaking abdominal aortic aneurysm, right common iliac endarterectomy, right iliofemoral bypass, and right oophorectomy. TF recommendations below for if expected prolonged intubation and to receive nutrition support. TF recs are calculated to meet estimated nutrient needs using IBW as pt currently with an underweight BMI. Current wt appears stable with scaled wt hx. Pt with low Henok of 12. Per physical assessment pt with no edema and with surgical wound to abdomen and right hip/groin with wound VAC. Will continue to follow closely. Recommendations: 1) Continuous Jevity 1.2 with goal rate of 55 mL/hr to provide: 1320 mL total volume/day, 1584 kcal, 73 g protein, and 1065 mL water 2) Additional 85 mL water flush Q4H; monitor serum Na 3) Prealbumin q /; daily weights 4) Advance diet as medically indicated to regular pending ST reassessment 5) Routine bowel care Addendum: 07/19/19 at [address] Amended: Links added.
[2019-07-19] MEDS ORDERED: metoclopramide 5 mg/ml inj IV PRN (13:30)
[2019-07-19] MEDS: ondansetron/PF 4mg/2ml inj IV PRN (13:52)
--- NOTE | 2019-07-19 14:19 | NUR ---
Additional TF consult received stating to start trickle TF at 10 mL/hr. D/w RN, RN will start at 10 mL/hr and stated will not advance rate until okay with surgeon. Then will advance as tolerated to goal rate per RD recommendations. Addendum: 07/19/19 at [address] Amended: Links added.
[2019-07-19] MEDS: metoclopramide 5 mg/ml inj IV SCH ×2 (14:36→20:22)
--- NOTE | 2019-07-19 16:00 | NUR ---
PICC line RN here to place midline cath.
--- NOTE | 2019-07-19 17:15 | NUR ---
patient stated she couldn't breath PICC line RN alerted staff and patient has sats in 70's and heart rate 160. Bagged patient with FIO2 100% sats up to 98% heart rate started to come down patient alert and verbal. RT to deep suction with lg amt of thick sutum. patient kept sats in 90's on 2L NC.
--- NOTE | 2019-07-19 18:15 | NUR ---
Problems reprioritized. Patient report given, questions answered & plan of care reviewed with oncoming shift.
--- NOTE | 2019-07-19 18:35 | NUR ---
Patient in room ICU 2042. I have received report from Jess HOUSTON, and had the opportunity to ask questions and assume patient care.
[2019-07-19] MEDS ORDERED: docusate sodium 100mg/10ml UD cup PO SCH (19:53)
[2019-07-19] MEDS: docusate sodium 100mg/10ml UD cup PEG SCH (20:21)
[2019-07-20] VITALS (25 sets, daily range): BP systolic 100–160; BP diastolic 32–121
[2019-07-20] MEDS: HYDROmorphone/NS 1 mg/ml CADD 50 ML IV SCH ×12 (01:00→23:00)
[2019-07-20] MEDS: ondansetron/PF 4mg/2ml inj IV PRN ×3 (01:34→14:56)
[2019-07-20 03:18] LABS: BASOPHILS % (AUTO) 0 % (0-1); EOSINOPHILS % (AUTO) 0 % (0-6); HEMATOCRIT 27.2 % (35.0-45.0); HEMOGLOBIN 8.9 g/dl (12.0-16.0); LYMPHOCYTES # (AUTO) 0.9 X10'3 (1.1-4.8); LYMPHOCYTES % (AUTO) 6.9 % (21-51); MEAN CORPUSCULAR HEMOGLOBIN 30.2 PG (27.0-31.0); MEAN CORPUSCULAR HGB CONC 32.9 g/dL (33.0-36.5); MEAN PLATELET VOLUME 8.4 FL (7.4-10.4); MONOCYTES % (AUTO) 7.8 % (2-12); NEUTROPHILS # (AUTO) 11.3 X10'3 (1.8-7.7); NEUTROPHILS % (AUTO) 85.3 % (42-75); PLATELET COUNT 84 X10'3 (140-440); RED BLOOD COUNT 2.96 X10'6 (4.20-5.60); RED CELL DISTRIBUTION WIDTH 17.9 % (11.5-14.5); WHITE BLOOD COUNT 13.2 X10'3 (4.5-11.0)
[2019-07-20 03:19] LABS: ALANINE AMINOTRANSFERASE 50 U/L (12-78); ALBUMIN 2.3 G/DL (3.4-5.0); ALBUMIN/GLOBULIN RATIO 0.8 (1.1-1.5); ALKALINE PHOSPHATASE 47 IU/L (46-116); ANION GAP 4 (8-16); ASPARTATE AMINO TRANSFERASE 44 U/L (10-37); BILIRUBIN,TOTAL 0.9 MG/DL (0.1-1.0); BLOOD UREA NITROGEN 13 MG/DL (7-18); BUN/CREATININE RATIO 21.7 (6.6-38.0); CHLORIDE 108 MMOL/L (99-107); GLUCOSE 131 MG/DL (70-104); MAGNESIUM 1.6 MG/DL (1.5-2.4); POTASSIUM 4.3 MMOL/L (3.5-5.1); SODIUM 137 MMOL/L (135-145); TOTAL CARBON DIOXIDE 24.8 MMOL/L (24-32); TOTAL PROTEIN 5.1 G/DL (6.4-8.2); eGFR > 90 ML/MIN
[2019-07-20] MEDS: metoclopramide 5 mg/ml inj IV SCH ×4 (03:24→19:34)
--- NOTE | 2019-07-20 03:30 | NUR ---
Received critical Phos of 1.0, BOOM Heller called. Order received for Phos replacement protocol. Will continue to monitor.
[2019-07-20] MEDS ORDERED: sodium phosphate inj. 30 MMOL in dextrose 5%-water 250 ML IV PRN (03:35)
[2019-07-20] MEDS ORDERED: Neutra Phos packet PO PRN (03:35)
[2019-07-20] MEDS ORDERED: sodium phosphate inj. 15 MMOL in dextrose 5%-water 250 ML IV PRN (03:35)
[2019-07-20] MEDS: potassium CL 20mEq in D5-1/2NS 1,000 ML IV SCH ×3 (04:06→16:44)
--- NOTE | 2019-07-20 06:15 | NUR ---
Patient in room ICU 2042. I have received report from gas appliance servicer and had the opportunity to ask questions and assume patient care.
--- NOTE | 2019-07-20 06:38 | NUR ---
Problems reprioritized. Patient report given, questions answered & plan of care reviewed with Jess HOUSTON.
[2019-07-20] MEDS: albuterol 2.5 MG/3 ML nebule NEB SCH ×4 (07:25→20:01)
[2019-07-20] MEDS: piperacillin/tazo 3.375gm/50ml 50 ML IV SCH ×4 (08:05→23:56)
[2019-07-20] MEDS: docusate sodium 100mg/10ml UD cup PEG SCH (08:05)
[2019-07-20] MEDS: famotidine/PF 10 mg/ml inj IV SCH ×2 (08:05→19:34)
[2019-07-20] MEDS: lactobacillus rhamnosus 10,000 MMU CELLS/CAPSULE PO SCH ×2 (08:05→19:34)
[2019-07-20] MEDS ORDERED: digoxin 125mcg (0.125mg) tablet PO SCH (10:35)
[2019-07-20] MEDS ORDERED: carVEDilol 3.125mg tablet PO SCH (10:35)
[2019-07-20] MEDS ORDERED: acetaminophen 325mg tablet NG PRN ×2 (11:35→11:36)
[2019-07-20] MEDS ORDERED: Neutra Phos packet NG PRN (11:40)
[2019-07-20] MEDS ORDERED: POTASSIUM BICARB 20meq eff tab 20 MEQ TABLET.EFF PO PRN (11:41)
[2019-07-20] MEDS ORDERED: POTASSIUM BICARB 20meq eff tab 20 MEQ TABLET.EFF NG PRN (11:41)
--- NOTE | 2019-07-20 18:08 | NUR ---
Student documentation: I have reviewed and agree with all interventions, assessments performed and documented by oncoming shift.
[2019-07-20] MEDS: docusate sodium 100mg/10ml UD cup NG SCH (19:34)
[2019-07-20] MEDS: carVEDilol 3.125mg tablet NG SCH (19:34)
[2019-07-20] MEDS: acetylcysteine 200 MG/ml 4ml vial PO SCH (20:01)
[2019-07-21] VITALS (24 sets, daily range): BP systolic 80–171; BP diastolic 32–97
[2019-07-21] MEDS: HYDROmorphone/NS 1 mg/ml CADD 50 ML IV SCH ×12 (01:00→23:00)
[2019-07-21] MEDS: potassium CL 20mEq in D5-1/2NS 1,000 ML IV SCH ×3 (01:19→16:39)
[2019-07-21] MEDS: metoclopramide 5 mg/ml inj IV SCH ×4 (01:46→20:00)
[2019-07-21 03:50] LABS: BASOPHILS % (AUTO) 0.1 % (0-1); EOSINOPHILS % (AUTO) 0.4 % (0-6); HEMATOCRIT 26.5 % (35.0-45.0); HEMOGLOBIN 8.8 g/dl (12.0-16.0); LYMPHOCYTES # (AUTO) 0.8 X10'3 (1.1-4.8); LYMPHOCYTES % (AUTO) 8.7 % (21-51); MEAN CORPUSCULAR HEMOGLOBIN 30.7 PG (27.0-31.0); MEAN CORPUSCULAR HGB CONC 33.2 g/dL (33.0-36.5); MEAN CORPUSCULAR VOLUME 92.4 FL (78-98); MEAN PLATELET VOLUME 7.7 FL (7.4-10.4); MONOCYTES % (AUTO) 10.6 % (2-12); NEUTROPHILS # (AUTO) 7.2 X10'3 (1.8-7.7); NEUTROPHILS % (AUTO) 80.2 % (42-75); PLATELET COUNT 111 X10'3 (140-440); RED BLOOD COUNT 2.87 X10'6 (4.20-5.60); RED CELL DISTRIBUTION WIDTH 17.1 % (11.5-14.5)
[2019-07-21 04:02] LABS: ALANINE AMINOTRANSFERASE 39 U/L (12-78); ALBUMIN 1.8 G/DL (3.4-5.0); ALBUMIN/GLOBULIN RATIO 0.7 (1.1-1.5); ALKALINE PHOSPHATASE 37 IU/L (46-116); ANION GAP 4 (8-16); ASPARTATE AMINO TRANSFERASE 28 U/L (10-37); BILIRUBIN,TOTAL 0.8 MG/DL (0.1-1.0); BLOOD UREA NITROGEN 14 MG/DL (7-18); BUN/CREATININE RATIO 22.6 (6.6-38.0); CALCIUM 7.3 MG/DL (8.5-10.1); CHLORIDE 105 MMOL/L (99-107); CREATININE 0.62 MG/DL (0.40-0.90); GLUCOSE 140 MG/DL (70-104); MAGNESIUM 1.5 MG/DL (1.5-2.4); PHOSPHORUS 1.7 MG/DL (2.3-4.5); POTASSIUM 4.5 MMOL/L (3.5-5.1); SODIUM 136 MMOL/L (135-145); TOTAL PROTEIN 4.4 G/DL (6.4-8.2); eGFR > 90 ML/MIN
[2019-07-21] MEDS: famotidine/PF 10 mg/ml inj IV SCH ×2 (07:50→20:00)
[2019-07-21] MEDS: lactobacillus rhamnosus 10,000 MMU CELLS/CAPSULE PO SCH (07:51)
[2019-07-21] MEDS: piperacillin/tazo 3.375gm/50ml 50 ML IV SCH ×2 (07:51→15:39)
[2019-07-21] MEDS: carVEDilol 3.125mg tablet NG SCH ×2 (07:52→20:01)
[2019-07-21] MEDS: digoxin 125mcg (0.125mg) tablet NG SCH (07:52)
[2019-07-21] MEDS: albuterol 2.5 MG/3 ML nebule NEB SCH ×4 (07:58→20:04)
[2019-07-21] MEDS: acetylcysteine 200 MG/ml 4ml vial PO SCH ×2 (07:59→08:26)
[2019-07-21] MEDS: docusate sodium 100mg/10ml UD cup NG SCH ×2 (08:00→20:00)
--- NOTE | 2019-07-21 11:27 | NUR ---
Linked Med note. CADD reassessments not completed on previous shifts. Non administered with see linked med note.
[2019-07-21] MEDS ORDERED: acetaminophen 325mg/10.15ml oral unit dose solution CORPAK PRN (14:47)
[2019-07-21] MEDS ORDERED: acetylcysteine 200 MG/ml 4ml vial CORPAK SCH (14:50)
[2019-07-21] MEDS ORDERED: POTASSIUM BICARB 20meq eff tab 20 MEQ TABLET.EFF CORPAK PRN (14:51)
[2019-07-21] MEDS: ondansetron/PF 4mg/2ml inj IV PRN (17:29)
--- NOTE | 2019-07-21 18:20 | NUR ---
Patient in room ICU 2042. I have received report from ROSEMARIE Gaming and had the opportunity to ask questions and assume patient care. Patient is laying on hospital bed and reports nausea and pain, I reoriented her to her CADD pump and advised nausea medication is coming. Carmen Brown RN is orienting with me for float pool.
--- NOTE | 2019-07-21 18:30 | NUR ---
Spoke to Dr. Mandel to clarify patient's order for mucomyst BID via corpak. stated that it was an order for RT d/t patient's increased secretions. Verified with MD that order should be inhaled rather than through patient's corpak. Also discussed with the ongoing order for D5 1/2 w/20K @ 125 that she has had since coming out of the OR. gave order to d/c IV fluids.
[2019-07-21] MEDS: lactobacillus rhamnosus 10,000 MMU CELLS/CAPSULE CORPAK SCH (20:01)
[2019-07-21] MEDS: acetylcysteine 200 MG/ml 4ml vial INH SCH (20:04)
[2019-07-21] MEDS ORDERED: furosemide 40mg/4ml inj IV ONE (21:45)
--- NOTE | 2019-07-21 21:45 | NUR ---
Call placed to salon coordinator ASSET AVAILABILITY LEADER Aryan Heller d/t patient continuing to have course lung sounds and pink frothy sputum. Placed orders for CXR and ABG. Received order for one time dose of 40mg IVP Lasix. ASSET AVAILABILITY LEADER arrived at bedside shortly after telephone conversation and evaluated CXR and labs. He then gave order for one time dose of 200mL of 25% IV Albumin d/t patient's albumin level of 1.8.
[2019-07-21] MEDS ORDERED: albumin (human) 25% 100 ML IV solution IV ONE (21:50)
--- NOTE | 2019-07-21 22:01 | NUR ---
RT unable to get blood gas
[2019-07-22] VITALS (24 sets, daily range): BP systolic 89–131; BP diastolic 40–64
[2019-07-22] MEDS: piperacillin/tazo 3.375gm/50ml 50 ML IV SCH ×3 (00:04→15:47)
[2019-07-22] MEDS: HYDROmorphone/NS 1 mg/ml CADD 50 ML IV SCH ×12 (01:00→23:00)
[2019-07-22] MEDS: metoclopramide 5 mg/ml inj IV SCH ×4 (02:17→19:22)
[2019-07-22 06:00] LABS: BASOPHILS % (AUTO) 0.1 % (0-1); EOSINOPHILS # (AUTO) 0.2 X10'3 (0-0.9); EOSINOPHILS % (AUTO) 1.6 % (0-6); HEMOGLOBIN 8.5 g/dl (12.0-16.0); LYMPHOCYTES # (AUTO) 0.9 X10'3 (1.1-4.8); LYMPHOCYTES % (AUTO) 9.2 % (21-51); MEAN CORPUSCULAR HEMOGLOBIN 31.5 PG (27.0-31.0); MEAN CORPUSCULAR VOLUME 92.5 FL (78-98); MEAN PLATELET VOLUME 7.5 FL (7.4-10.4); MONOCYTES # (AUTO) 1.2 X10'3 (0-0.9); MONOCYTES % (AUTO) 12.1 % (2-12); NEUTROPHILS # (AUTO) 7.7 X10'3 (1.8-7.7); PLATELET COUNT 122 X10'3 (140-440); RED BLOOD COUNT 2.71 X10'6 (4.20-5.60); RED CELL DISTRIBUTION WIDTH 16.5 % (11.5-14.5)
--- NOTE | 2019-07-22 06:26 | NUR ---
Problems reprioritized. Patient report given, questions answered & plan of care reviewed with Rosenda HOUSTON.
[2019-07-22 06:34] LABS: ALANINE AMINOTRANSFERASE 36 U/L (12-78); ALBUMIN 3.3 G/DL (3.4-5.0); ALBUMIN/GLOBULIN RATIO 1.5 (1.1-1.5); ALKALINE PHOSPHATASE 41 IU/L (46-116); ANION GAP 6 (8-16); ASPARTATE AMINO TRANSFERASE 26 U/L (10-37); BILIRUBIN,TOTAL 1.1 MG/DL (0.1-1.0); BLOOD UREA NITROGEN 13 MG/DL (7-18); BUN/CREATININE RATIO 20.3 (6.6-38.0); CALCIUM 7.8 MG/DL (8.5-10.1); CHLORIDE 104 MMOL/L (99-107); CREATININE 0.64 MG/DL (0.40-0.90); GLUCOSE 118 MG/DL (70-104); MAGNESIUM 1.6 MG/DL (1.5-2.4); PHOSPHORUS 2.1 MG/DL (2.3-4.5); POTASSIUM 4.6 MMOL/L (3.5-5.1); PREALBUMIN 12.6 MG/DL (19-36); SODIUM 136 MMOL/L (135-145); TOTAL CARBON DIOXIDE 25.8 MMOL/L (24-32); TOTAL PROTEIN 5.5 G/DL (6.4-8.2); eGFR 89 ML/MIN
[2019-07-22] MEDS: acetylcysteine 200 MG/ml 4ml vial INH SCH ×2 (07:15→20:46)
[2019-07-22] MEDS: albuterol 2.5 MG/3 ML nebule NEB SCH ×4 (07:15→20:46)
[2019-07-22] MEDS: carVEDilol 3.125mg tablet NG SCH ×2 (08:00→19:22)
[2019-07-22] MEDS: docusate sodium 100mg/10ml UD cup NG SCH ×2 (08:23→20:00)
[2019-07-22] MEDS: lactobacillus rhamnosus 10,000 MMU CELLS/CAPSULE CORPAK SCH ×2 (08:23→19:22)
[2019-07-22] MEDS: famotidine/PF 10 mg/ml inj IV SCH ×2 (08:23→19:22)
[2019-07-22] MEDS: digoxin 125mcg (0.125mg) tablet NG SCH (08:24)
--- NOTE | 2019-07-22 11:45 | NUR ---
Reassessment: Tube feeding has been increased to goal of 55 ml/hr per surgeon note. Tolerating tube feeds at goal rate. Gastric residuals documented as 0 ml. Pt is s/p repair of abdominal aortic aneurysm leak, right common iliac endarterectomy and right iliofemoral bypass. Last BM moderate liquid stools 07/21. Patient had BSS this morning, per ST has weak swallow and wet voice, recommends NPO and reassess. Will continue to follow. Recommendations: 1) Continuous Jevity 1.2 with goal rate of 55 mL/hr to provide: 1320 mL total volume/day, 1584 kcal, 73 g protein, and 1065 mL water 2) Additional 85 mL water flush Q4H; monitor serum Na 3) Prealbumin q /; daily weights 4) Advance diet as medically indicated to regular pending ST reassessment 5) Routine bowel care Addendum: 07/22/19 at [address] Amended: Links added.
--- NOTE | 2019-07-22 18:15 | NUR ---
Problems reprioritized. Patient report given, questions answered & plan of care reviewed with Kelin HOUSTON.
[2019-07-22] MEDS ORDERED: furosemide 40mg/4ml inj IV ONE (20:25)
[2019-07-22] MEDS: enoxaparin 40mg/0.4ml syringe SUBCUT SCH (21:18)
[2019-07-22] MEDS: ondansetron/PF 4mg/2ml inj IV PRN (21:24)
[2019-07-23] VITALS (24 sets, daily range): BP systolic 97–139; BP diastolic 43–70
[2019-07-23] MEDS: piperacillin/tazo 3.375gm/50ml 50 ML IV SCH ×3 (00:23→16:44)
[2019-07-23] MEDS: HYDROmorphone/NS 1 mg/ml CADD 50 ML IV SCH ×12 (01:00→23:00)
[2019-07-23] MEDS: metoclopramide 5 mg/ml inj IV SCH ×4 (01:25→20:05)
--- NOTE | 2019-07-23 05:36 | NUR ---
abdominal dressing changed multiple times throughout shift, serous drainage from distal area, optilock in place. Patient intermittently complaining of nausea, medications given as ordered, no emesis.
[2019-07-23 06:14] LABS: BASOPHILS % (AUTO) 0.1 % (0-1); EOSINOPHILS # (AUTO) 0.2 X10'3 (0-0.9); EOSINOPHILS % (AUTO) 1.3 % (0-6); HEMATOCRIT 30.3 % (35.0-45.0); HEMOGLOBIN 10.1 g/dl (12.0-16.0); LYMPHOCYTES # (AUTO) 1.2 X10'3 (1.1-4.8); LYMPHOCYTES % (AUTO) 8.4 % (21-51); MEAN CORPUSCULAR HEMOGLOBIN 31.3 PG (27.0-31.0); MEAN CORPUSCULAR HGB CONC 33.5 g/dL (33.0-36.5); MEAN CORPUSCULAR VOLUME 93.5 FL (78-98); MEAN PLATELET VOLUME 7.8 FL (7.4-10.4); MONOCYTES # (AUTO) 1.6 X10'3 (0-0.9); MONOCYTES % (AUTO) 11.2 % (2-12); PLATELET COUNT 206 X10'3 (140-440); RED BLOOD COUNT 3.24 X10'6 (4.20-5.60); RED CELL DISTRIBUTION WIDTH 16.5 % (11.5-14.5); WHITE BLOOD COUNT 13.9 X10'3 (4.5-11.0)
[2019-07-23 06:28] LABS: ALANINE AMINOTRANSFERASE 31 U/L (12-78); ALBUMIN 2.6 G/DL (3.4-5.0); ALKALINE PHOSPHATASE 39 IU/L (46-116); ANION GAP 4 (8-16); ASPARTATE AMINO TRANSFERASE 20 U/L (10-37); BILIRUBIN,TOTAL 0.7 MG/DL (0.1-1.0); BLOOD UREA NITROGEN 16 MG/DL (7-18); BUN/CREATININE RATIO 23.2 (6.6-38.0); CALCIUM 7.6 MG/DL (8.5-10.1); CHLORIDE 101 MMOL/L (99-107); CREATININE 0.69 MG/DL (0.40-0.90); GLUCOSE 125 MG/DL (70-104); MAGNESIUM 1.5 MG/DL (1.5-2.4); PHOSPHORUS 3.1 MG/DL (2.3-4.5); POTASSIUM 3.6 MMOL/L (3.5-5.1); SODIUM 137 MMOL/L (135-145); TOTAL PROTEIN 5.3 G/DL (6.4-8.2); eGFR 81 ML/MIN
[2019-07-23] MEDS: carVEDilol 3.125mg tablet NG SCH ×2 (08:12→20:05)
[2019-07-23] MEDS: docusate sodium 100mg/10ml UD cup NG SCH ×2 (08:12→20:05)
[2019-07-23] MEDS: lactobacillus rhamnosus 10,000 MMU CELLS/CAPSULE CORPAK SCH ×2 (08:13→20:03)
[2019-07-23] MEDS: famotidine/PF 10 mg/ml inj IV SCH ×2 (08:13→20:04)
[2019-07-23] MEDS: digoxin 125mcg (0.125mg) tablet NG SCH (08:13)
[2019-07-23] MEDS: enoxaparin 40mg/0.4ml syringe SUBCUT SCH ×2 (08:14→20:00)
[2019-07-23] MEDS: albuterol 2.5 MG/3 ML nebule NEB SCH ×4 (09:00→20:42)
[2019-07-23] MEDS: acetylcysteine 200 MG/ml 4ml vial INH SCH ×2 (09:01→20:42)
--- NOTE | 2019-07-23 18:30 | NUR ---
Patient in room ICU 2042. I have received report from Mariaelena HOUSTON and had the opportunity to ask questions and assume patient care.
[2019-07-24] VITALS (25 sets, daily range): BP systolic 89–162; BP diastolic 45–94
[2019-07-24] MEDS: piperacillin/tazo 3.375gm/50ml 50 ML IV SCH ×3 (00:09→15:20)
[2019-07-24] MEDS: HYDROmorphone/NS 1 mg/ml CADD 50 ML IV SCH ×12 (01:00→23:00)
--- NOTE | 2019-07-24 01:31 | NUR ---
Patient wakes up confused at times, calls out, requires reminders to use CADD button for pain control. Weak cough, assisting with flutter valve use. Unable to use IS.
[2019-07-24] MEDS: metoclopramide 5 mg/ml inj IV SCH ×4 (02:39→22:12)
--- NOTE | 2019-07-24 05:29 | NUR ---
AM chest xray reviewed, Lissy updated about result as well as decreased urine output. Sats 92% on 2LNC. Patient awake, answers questions, weak cough, complains of pain,encouraging use of CADD for pain control.
[2019-07-24 05:49] LABS: BASOPHILS % (AUTO) 0.1 % (0-1); EOSINOPHILS # (AUTO) 0.2 X10'3 (0-0.9); EOSINOPHILS % (AUTO) 1.6 % (0-6); HEMATOCRIT 28.3 % (35.0-45.0); HEMOGLOBIN 9.3 g/dl (12.0-16.0); LYMPHOCYTES # (AUTO) 1.1 X10'3 (1.1-4.8); LYMPHOCYTES % (AUTO) 7.3 % (21-51); MEAN CORPUSCULAR HEMOGLOBIN 30.9 PG (27.0-31.0); MEAN CORPUSCULAR HGB CONC 32.9 g/dL (33.0-36.5); MEAN PLATELET VOLUME 7.7 FL (7.4-10.4); MONOCYTES # (AUTO) 1.5 X10'3 (0-0.9); MONOCYTES % (AUTO) 9.7 % (2-12); NEUTROPHILS # (AUTO) 12.2 X10'3 (1.8-7.7); NEUTROPHILS % (AUTO) 81.3 % (42-75); PLATELET COUNT 234 X10'3 (140-440); RED BLOOD COUNT 3.01 X10'6 (4.20-5.60); RED CELL DISTRIBUTION WIDTH 16.9 % (11.5-14.5); WHITE BLOOD COUNT 15.1 X10'3 (4.5-11.0)
[2019-07-24 06:00] LABS: ALANINE AMINOTRANSFERASE 25 U/L (12-78); ALBUMIN 2.2 G/DL (3.4-5.0); ALBUMIN/GLOBULIN RATIO 0.8 (1.1-1.5); ALKALINE PHOSPHATASE 39 IU/L (46-116); ANION GAP -1 (8-16); ASPARTATE AMINO TRANSFERASE 19 U/L (10-37); BILIRUBIN,TOTAL 0.8 MG/DL (0.1-1.0); BLOOD UREA NITROGEN 18 MG/DL (7-18); BUN/CREATININE RATIO 30.5 (6.6-38.0); CALCIUM 7.8 MG/DL (8.5-10.1); CHLORIDE 101 MMOL/L (99-107); CREATININE 0.59 MG/DL (0.40-0.90); GLUCOSE 107 MG/DL (70-104); MAGNESIUM 1.6 MG/DL (1.5-2.4); PHOSPHORUS 2.5 MG/DL (2.3-4.5); SODIUM 137 MMOL/L (135-145); TOTAL CARBON DIOXIDE 36.8 MMOL/L (24-32); TOTAL PROTEIN 4.9 G/DL (6.4-8.2); TRIGLYCERIDES 50 MG/DL (20-135); eGFR > 90 ML/MIN
--- NOTE | 2019-07-24 06:15 | NUR ---
Patient in room ICU 2042. I have received report from circuit breaker mechanic and had the opportunity to ask questions and assume patient care.
--- NOTE | 2019-07-24 06:34 | NUR ---
Problems reprioritized. Patient report given, questions answered & plan of care reviewed with Jess HOUSTON.
[2019-07-24] MEDS: enoxaparin 40mg/0.4ml syringe SUBCUT SCH (08:00)
[2019-07-24] MEDS: albuterol 2.5 MG/3 ML nebule NEB SCH ×4 (08:08→19:16)
[2019-07-24] MEDS: acetylcysteine 200 MG/ml 4ml vial INH SCH (08:08)
[2019-07-24] MEDS: docusate sodium 100mg/10ml UD cup NG SCH ×2 (08:23→22:12)
[2019-07-24] MEDS: lactobacillus rhamnosus 10,000 MMU CELLS/CAPSULE CORPAK SCH ×2 (08:23→22:12)
[2019-07-24] MEDS: digoxin 125mcg (0.125mg) tablet NG SCH (08:24)
[2019-07-24] MEDS: carVEDilol 3.125mg tablet NG SCH ×2 (08:24→22:13)
[2019-07-24] MEDS: famotidine/PF 10 mg/ml inj IV SCH ×2 (08:34→22:12)
[2019-07-24 12:43] LABS: GLUCOSE,BODY FLUID 122 MG/DL
[2019-07-24 13:01] LABS: TOTAL PROTEIN,BODY FLUID < 2.0 G/DL
[2019-07-24 13:10] LABS: LYMPHOCYTES,BODY FLUID 23 %; MONOCYTES,BODY FLUID 14 %; NEUTROPHILS,BODY FLUID 63 %
[2019-07-24 13:12] LABS: BFAPPEAR HAZY
[2019-07-24 13:13] LABS: BF MESOTHELIAL CELLS FEW; BF RBC COUNT 430 /CU MM; BF WBC COUNT 285 /CU MM (0-1000); BFCOLOR YELLOW; BFVOLUME 56 ML
[2019-07-24 14:35] LABS: BF RBC COUNT 65 /CU MM; BF WBC COUNT 315 /CU MM (0-1000); BFAPPEAR HAZY; BFCOLOR YELLOW; BFVOLUME 56 ML; LYMPHOCYTES,BODY FLUID 5 %; MONOCYTES,BODY FLUID 7 %; NEUTROPHILS,BODY FLUID 88 %
[2019-07-24 14:39] LABS: GLUCOSE,BODY FLUID 118 MG/DL
[2019-07-24 14:50] LABS: TOTAL PROTEIN,BODY FLUID < 2.0 G/DL
--- NOTE | 2019-07-24 18:11 | NUR ---
Problems reprioritized. Patient report given, questions answered & plan of care reviewed with oncoming shift.
--- NOTE | 2019-07-24 18:30 | NUR ---
Patient in room ICU 2042. I have received report from Jess HOUSTON and had the opportunity to ask questions and assume patient care. Addendum: 07/24/19 at 8 by Shannon Reese RN Amended: Links added.
[2019-07-24] MEDS: enoxaparin 50mg/0.5ml (from 3ml vial) syringe SUBCUT SCH (22:14)
[2019-07-25] VITALS (24 sets, daily range): BP systolic 80–167; BP diastolic 40–112
--- NOTE | 2019-07-25 00:15 | NUR ---
Patient weak, poor cough, encouraged flutter valve use. Still not able to use IS. Requesting fan at low setting.
[2019-07-25] MEDS: metoclopramide 5 mg/ml inj IV SCH ×4 (02:00→20:50)
[2019-07-25] MEDS: HYDROmorphone/NS 1 mg/ml CADD 50 ML IV SCH ×8 (05:00→18:09)
--- NOTE | 2019-07-25 05:41 | NUR ---
Patient SOB after taking off bedpan, sats 82% on 6LNC. chest xray obtained,Lissy notified. Orders received, placed on Salter at 9LPM. NT suction and EZPAP by RT. Sats: 99% P/treatment, O2 decreased to 8LPM. Will continue to monitor.
[2019-07-25 05:47] LABS: BASOPHILS % (AUTO) 0.2 % (0-1); EOSINOPHILS # (AUTO) 0.1 X10'3 (0-0.9); HEMATOCRIT 28.9 % (35.0-45.0); HEMOGLOBIN 9.4 g/dl (12.0-16.0); LYMPHOCYTES # (AUTO) 0.8 X10'3 (1.1-4.8); LYMPHOCYTES % (AUTO) 6.4 % (21-51); MEAN CORPUSCULAR HEMOGLOBIN 31.2 PG (27.0-31.0); MEAN CORPUSCULAR HGB CONC 32.6 g/dL (33.0-36.5); MEAN CORPUSCULAR VOLUME 95.7 FL (78-98); MEAN PLATELET VOLUME 7.6 FL (7.4-10.4); MONOCYTES # (AUTO) 0.7 X10'3 (0-0.9); MONOCYTES % (AUTO) 5.4 % (2-12); NEUTROPHILS # (AUTO) 10.9 X10'3 (1.8-7.7); PLATELET COUNT 269 X10'3 (140-440); RED BLOOD COUNT 3.01 X10'6 (4.20-5.60); WHITE BLOOD COUNT 12.5 X10'3 (4.5-11.0)
[2019-07-25 06:00] LABS: ANION GAP -2 (8-16); BILIRUBIN,TOTAL 0.6 MG/DL (0.1-1.0); BLOOD UREA NITROGEN 20 MG/DL (7-18); BUN/CREATININE RATIO 34.5 (6.6-38.0); CALCIUM 8.1 MG/DL (8.5-10.1); CHLORIDE 103 MMOL/L (99-107); CREATININE 0.58 MG/DL (0.40-0.90); GLUCOSE 171 MG/DL (70-104); MAGNESIUM 1.7 MG/DL (1.5-2.4); PHOSPHORUS 2.4 MG/DL (2.3-4.5); POTASSIUM 4.1 MMOL/L (3.5-5.1); SODIUM 138 MMOL/L (135-145); TOTAL CARBON DIOXIDE 36.7 MMOL/L (24-32); TOTAL PROTEIN 4.8 G/DL (6.4-8.2); eGFR > 90 ML/MIN
[2019-07-25 06:01] LABS: ALANINE AMINOTRANSFERASE 23 U/L (12-78); ALBUMIN 1.8 G/DL (3.4-5.0); ALBUMIN/GLOBULIN RATIO 0.6 (1.1-1.5); ALKALINE PHOSPHATASE 44 IU/L (46-116); ASPARTATE AMINO TRANSFERASE 18 U/L (10-37); PREALBUMIN 8.6 MG/DL (19-36)
--- NOTE | 2019-07-25 06:15 | NUR ---
Patient in room ICU 2042. I have received report from trauma nurse and had the opportunity to ask questions and assume patient care.
--- NOTE | 2019-07-25 06:30 | NUR ---
Problems reprioritized. Patient report given, questions answered & plan of care reviewed with Jess HOUSTON.
[2019-07-25] MEDS: albuterol 2.5 MG/3 ML nebule NEB SCH ×4 (08:02→19:00)
[2019-07-25] MEDS: docusate sodium 100mg/10ml UD cup NG SCH ×2 (08:07→20:50)
[2019-07-25] MEDS: carVEDilol 3.125mg tablet NG SCH ×3 (08:08→22:02)
[2019-07-25] MEDS: famotidine/PF 10 mg/ml inj IV SCH ×2 (08:08→20:50)
[2019-07-25] MEDS: digoxin 125mcg (0.125mg) tablet NG SCH (08:08)
[2019-07-25] MEDS: lactobacillus rhamnosus 10,000 MMU CELLS/CAPSULE CORPAK SCH ×2 (08:08→20:50)
[2019-07-25] MEDS: piperacillin/tazo 3.375gm/50ml 50 ML IV SCH ×3 (08:08→15:44)
--- NOTE | 2019-07-25 12:19 | NUR ---
reassessment: Pt tolerating TF at goal. LBM 07/21. Will continue to monitor. Recommendations: 1) Continuous Jevity 1.2 with goal rate of 55 mL/hr to provide: 1320 mL total volume/day, 1584 kcal, 73 g protein, and 1065 mL water 2) Additional 85 mL water flush Q4H; monitor serum Na 3) Prealbumin q /; daily weights 4) Advance diet as medically indicated to regular pending ST reassessment 5) Routine bowel care Addendum: 07/25/19 at [address] Amended: Links added.
[2019-07-25] MEDS: enoxaparin 50mg/0.5ml (from 3ml vial) syringe SUBCUT SCH ×2 (13:46→22:00)
[2019-07-25] MEDS: furosemide 40mg/4ml inj IV SCH ×2 (13:46→20:50)
--- NOTE | 2019-07-25 17:10 | NUR ---
patient desated from 95% to mid 60's. began baggging with 100% Fio2. Dr Slaughter here deep tracheal suctioning done several times and still desating. Dr Slaughter made decision to intubate, done without complication. Family notified by Dr Slaughter.
[2019-07-25] MEDS ORDERED: midazolam 100mg in NS 100ml 100 ML IV PRN (17:37)
[2019-07-25] MEDS ORDERED: midazolam 2 mg/2 ml injection IV ONE (17:40)
[2019-07-25] MEDS ORDERED: ipratropium/albuterol 3ml nebule NEB PRN (17:40)
[2019-07-25 18:11] LABS: ABG BASE EXCESS 7.7 mmol/L (-2.0-3.0); ABG HCO3 34.8 mmol/L (22.0-26.0); ABG OXYGEN SATURATION 94.6 % (95-98); ABG PCO2 (T) 62.8 mmHg (35.0-45.0); ABG PH (T) 7.361 (7.350-7.450); ABG PO2 (T) 75.4 mmHg (83-108); ALLEN'S TEST POSITIVE; FMetHb 0.1 % (0.3-1.12); FO2Hb 94.5 % (94-100); PEEP 5 cm H2O; RESPIRATORY RATE 20 b/min; TIDAL VOLUME 250 mL; TOTAL HEMOGLOBIN 10.8 G/dl (12.0-16.0)
[2019-07-25] MEDS ORDERED: etomidate 2mg/ml inj. IV ONE (18:15)
--- NOTE | 2019-07-25 18:15 | NUR ---
Problems reprioritized. Patient report given, questions answered & plan of care reviewed with oncoming shift.
[2019-07-25] MEDS: ipratropium/albuterol 3ml nebule NEB SCH ×2 (19:54→23:41)
[2019-07-25 20:07] LABS: ALANINE AMINOTRANSFERASE 20 U/L (12-78); ALBUMIN 1.7 G/DL (3.4-5.0); ALBUMIN/GLOBULIN RATIO 0.6 (1.1-1.5); ALKALINE PHOSPHATASE 47 IU/L (46-116); ANION GAP 0 (8-16); ASPARTATE AMINO TRANSFERASE 20 U/L (10-37); BILIRUBIN,TOTAL 0.6 MG/DL (0.1-1.0); BLOOD UREA NITROGEN 20 MG/DL (7-18); BUN/CREATININE RATIO 27.8 (6.6-38.0); CHLORIDE 103 MMOL/L (99-107); CREATININE 0.72 MG/DL (0.40-0.90); GLUCOSE 155 MG/DL (70-104); POTASSIUM 3.8 MMOL/L (3.5-5.1); SODIUM 141 MMOL/L (135-145); TOTAL CARBON DIOXIDE 38.3 MMOL/L (24-32); TOTAL PROTEIN 4.6 G/DL (6.4-8.2); eGFR 77 ML/MIN
[2019-07-25 20:11] LABS: TROPONIN I 0.04 NG/ML (0.0-0.05)
[2019-07-25] MEDS: fentaNYL/PF 50MCG/1 ML 2ML syringe IV PRN (21:00)
[2019-07-26] VITALS (26 sets, daily range): BP systolic 80–144; BP diastolic 37–76
[2019-07-26] MEDS: piperacillin/tazo 3.375gm/50ml 50 ML IV SCH ×3 (00:50→16:39)
[2019-07-26] MEDS: metoclopramide 5 mg/ml inj IV SCH ×3 (02:53→14:51)
[2019-07-26] MEDS: ipratropium/albuterol 3ml nebule NEB SCH ×7 (03:11→23:02)
[2019-07-26] MEDS: acetaminophen 325mg/10.15ml oral unit dose solution CORPAK PRN (03:16)
[2019-07-26 03:36] LABS: ABG BASE EXCESS 13.6 mmol/L (-2.0-3.0); ABG HCO3 37.9 mmol/L (22.0-26.0); ABG OXYGEN SATURATION 97.6 % (95-98); ABG PCO2 (T) 48.7 mmHg (35.0-45.0); ABG PH (T) 7.512 (7.350-7.450); ABG PO2 (T) 97.2 mmHg (83-108); FCOHb 0.5 % (0.5-1.5); FMetHb 0.3 % (0.3-1.12); FO2Hb 96.8 % (94-100); PATIENT TEMPERATURE 37.8; TOTAL HEMOGLOBIN 10.1 G/dl (12.0-16.0)
--- NOTE | 2019-07-26 06:00 | NUR ---
RN Note -Shift Summary Pt had EKG changes at the beginning of the shift. 12 lead taken and troponin drawn. Troponin 0.04 Pt's blood pressure has been labile. Unable to tolerate much sedation. Pt wakes up and responds appropriately. Addendum: 07/26/19 at 0621 by Carol Rubin RN Tylenol given for temp of 38
[2019-07-26 06:23] LABS: BASOPHILS # (AUTO) 0.1 X10'3 (0-0.2); BASOPHILS % (AUTO) 0.6 % (0-1); EOSINOPHILS # (AUTO) 0.2 X10'3 (0-0.9); EOSINOPHILS % (AUTO) 2.1 % (0-6); HEMATOCRIT 27.1 % (35.0-45.0); HEMOGLOBIN 9.1 g/dl (12.0-16.0); LYMPHOCYTES # (AUTO) 0.8 X10'3 (1.1-4.8); LYMPHOCYTES % (AUTO) 8.2 % (21-51); MEAN CORPUSCULAR HEMOGLOBIN 31.8 PG (27.0-31.0); MEAN CORPUSCULAR HGB CONC 33.5 g/dL (33.0-36.5); MEAN CORPUSCULAR VOLUME 94.8 FL (78-98); MEAN PLATELET VOLUME 7.7 FL (7.4-10.4); MONOCYTES # (AUTO) 0.6 X10'3 (0-0.9); MONOCYTES % (AUTO) 5.9 % (2-12); NEUTROPHILS # (AUTO) 8.3 X10'3 (1.8-7.7); NEUTROPHILS % (AUTO) 83.2 % (42-75); PLATELET COUNT 272 X10'3 (140-440); RED BLOOD COUNT 2.86 X10'6 (4.20-5.60); RED CELL DISTRIBUTION WIDTH 18.2 % (11.5-14.5)
[2019-07-26] MEDS: albuterol 2.5 MG/3 ML nebule NEB SCH ×4 (06:57→19:00)
[2019-07-26 07:02] LABS: ALANINE AMINOTRANSFERASE 18 U/L (12-78); ALBUMIN 1.6 G/DL (3.4-5.0); ALBUMIN/GLOBULIN RATIO 0.5 (1.1-1.5); ALKALINE PHOSPHATASE 46 IU/L (46-116); ANION GAP 0 (8-16); ASPARTATE AMINO TRANSFERASE 19 U/L (10-37); BILIRUBIN,TOTAL 0.5 MG/DL (0.1-1.0); BLOOD UREA NITROGEN 22 MG/DL (7-18); BUN/CREATININE RATIO 28.9 (6.6-38.0); CALCIUM 7.6 MG/DL (8.5-10.1); CHLORIDE 102 MMOL/L (99-107); CREATININE 0.76 MG/DL (0.40-0.90); GLUCOSE 128 MG/DL (70-104); MAGNESIUM 1.5 MG/DL (1.5-2.4); PHOSPHORUS 2.6 MG/DL (2.3-4.5); POTASSIUM 3.3 MMOL/L (3.5-5.1); SODIUM 142 MMOL/L (135-145); TOTAL PROTEIN 4.6 G/DL (6.4-8.2); eGFR 73 ML/MIN
--- NOTE | 2019-07-26 07:15 | NUR ---
Critical CO2 of 40 on chemistry panel; bicarb on ABG 37. MD aware. Will continue to monitor.
[2019-07-26] MEDS: carVEDilol 3.125mg tablet NG SCH (08:00)
[2019-07-26] MEDS: lactobacillus rhamnosus 10,000 MMU CELLS/CAPSULE CORPAK SCH ×2 (08:15→19:55)
[2019-07-26] MEDS: docusate sodium 100mg/10ml UD cup NG SCH ×2 (08:15→19:54)
[2019-07-26] MEDS: digoxin 125mcg (0.125mg) tablet NG SCH (08:16)
[2019-07-26] MEDS: famotidine/PF 10 mg/ml inj IV SCH ×2 (08:16→19:53)
[2019-07-26] MEDS: enoxaparin 50mg/0.5ml (from 3ml vial) syringe SUBCUT SCH ×2 (08:35→21:27)
[2019-07-26] MEDS: potassium CL 10mEq/100ml bag 100 ML IV PRN ×4 (10:46→14:39)
--- NOTE | 2019-07-26 12:28 | NUR ---
ASSESSMENT COMPLETED THIS AM, PT LIGHTLY SEDATED, BP MARGINAL, SEE VS, SEDATION PLACED ON HOLD, PT DROWSY, WEANING PARAMETERS COMPLETED BY RT, PT TOLERATED POORLY. COREG AND LASIX HELD FOR DECREASED BP. DR BUSBY IN LATER THIS AM, DISCUSSED HOLDING OF MEDICATIONS, WILL CONTINUE TO HOLD TODAY AND SEE WHERE PT IS LATER, DR CONTE IN AND UPDATED. PT PAINFUL, RESTARTED FENTANYL GTT PER DR BUSBY, REPLACING POTASSIUM FOR K+ OF 3.3. PTS FAMILY CALLED IN FOR UPDATE, GIVEN. Addendum: 07/26/19 at 1350 by Karis Cheek RN Amended: Links added.
--- NOTE | 2019-07-26 15:51 | NUR ---
DISCUSSED CORPAK WHICH REMAINS 78CM AT LEFT NARE BUT SMALL AMOUNT MAYBE 10 CM IN BACK OF THROAT AND YESTERDAY POST INTUBATION CXR SHOWS TIP OF CORPAK IN STOMACH, OKAY TO CONTINUE TO USE, WILL CONTINUE TO MONITOR PLACEMENT AND RESIDUALS. PAIN IMPROVING AFTER INCREASING FENTANYL GTT CURRENTLY AT 95MCG/HR. Addendum: 07/26/19 at 1554 by Karis Cheek RN Amended: Links added.
[2019-07-26 17:36] LABS: ABG BASE EXCESS 11.1 mmol/L (-2.0-3.0); ABG HCO3 35.6 mmol/L (22.0-26.0); ABG PCO2 (T) 47.6 mmHg (35.0-45.0); ABG PH (T) 7.492 (7.350-7.450); ABG PO2 (T) 104.5 mmHg (83-108); ALLEN'S TEST POSITIVE; FMetHb 0.1 % (0.3-1.12); FO2Hb 97.9 % (94-100); RESPIRATORY RATE 20 b/min; TIDAL VOLUME 250 mL; TOTAL HEMOGLOBIN 9.9 G/dl (12.0-16.0)
--- NOTE | 2019-07-26 18:32 | NUR ---
17:[address] W/RT ON PORTABLE VENT, MONITOR AND BACK TO ROOM, UNEVENTFUL TRIP, PT TOLERATED WELL, VSS, RECEIVING RN GIVEN REPORT. DR BUSBY UPDATED, SPOKE W/PTS FAMILY. Addendum: 07/26/19 at 1834 by Karis Cheek RN Amended: Links added.
--- NOTE | 2019-07-26 19:30 | NUR ---
RN Note -Family Communication Arrangements made with House Sup for and one other person to come visit. said he will come at 0800.
[2019-07-26] MEDS: FENTANYL-0.9 % NACL/PF 100 ML IV PRN (19:54)
[2019-07-26] MEDS: mineral oil/petrolatum ophthal oint EACHEYE SCH (19:55)
[2019-07-27] VITALS (24 sets, daily range): BP systolic 82–147; BP diastolic 36–95
[2019-07-27] MEDS: mineral oil/petrolatum ophthal oint EACHEYE SCH ×4 (02:00→19:38)
[2019-07-27] MEDS: ipratropium/albuterol 3ml nebule NEB SCH ×6 (03:06→23:07)
[2019-07-27 04:16] LABS: ABG BASE EXCESS 12.9 mmol/L (-2.0-3.0); ABG HCO3 38.1 mmol/L (22.0-26.0); ABG OXYGEN SATURATION 97.2 % (95-98); ABG PCO2 (T) 54.2 mmHg (35.0-45.0); ABG PH (T) 7.466 (7.350-7.450); ABG PO2 (T) 96.3 mmHg (83-108); FCOHb 0.7 % (0.5-1.5); FMetHb 0.3 % (0.3-1.12); FO2Hb 96.2 % (94-100); PATIENT TEMPERATURE 37.5; TOTAL HEMOGLOBIN 9.3 G/dl (12.0-16.0)
[2019-07-27 06:12] LABS: BASOPHILS # (AUTO) 0.1 X10'3 (0-0.2); BASOPHILS % (AUTO) 0.7 % (0-1); EOSINOPHILS # (AUTO) 0.4 X10'3 (0-0.9); EOSINOPHILS % (AUTO) 3.3 % (0-6); HEMATOCRIT 26.7 % (35.0-45.0); HEMOGLOBIN 9.1 g/dl (12.0-16.0); LYMPHOCYTES # (AUTO) 0.9 X10'3 (1.1-4.8); LYMPHOCYTES % (AUTO) 8.2 % (21-51); MEAN CORPUSCULAR HEMOGLOBIN 32.5 PG (27.0-31.0); MEAN CORPUSCULAR VOLUME 95.7 FL (78-98); MEAN PLATELET VOLUME 7.7 FL (7.4-10.4); MONOCYTES # (AUTO) 0.7 X10'3 (0-0.9); MONOCYTES % (AUTO) 6.8 % (2-12); NEUTROPHILS # (AUTO) 8.7 X10'3 (1.8-7.7); PLATELET COUNT 297 X10'3 (140-440); RED BLOOD COUNT 2.79 X10'6 (4.20-5.60); RED CELL DISTRIBUTION WIDTH 18.5 % (11.5-14.5); WHITE BLOOD COUNT 10.7 X10'3 (4.5-11.0)
[2019-07-27 06:37] LABS: ALANINE AMINOTRANSFERASE 22 U/L (12-78); ALBUMIN 1.7 G/DL (3.4-5.0); ALBUMIN/GLOBULIN RATIO 0.5 (1.1-1.5); ALKALINE PHOSPHATASE 48 IU/L (46-116); ANION GAP -2 (8-16); ASPARTATE AMINO TRANSFERASE 18 U/L (10-37); BILIRUBIN,TOTAL 0.3 MG/DL (0.1-1.0); BLOOD UREA NITROGEN 26 MG/DL (7-18); BUN/CREATININE RATIO 37.1 (6.6-38.0); CALCIUM 8.1 MG/DL (8.5-10.1); CHLORIDE 102 MMOL/L (99-107); GLUCOSE 146 MG/DL (70-104); MAGNESIUM 1.9 MG/DL (1.5-2.4); PHOSPHORUS 2.8 MG/DL (2.3-4.5); POTASSIUM 4.1 MMOL/L (3.5-5.1); SODIUM 139 MMOL/L (135-145); TOTAL CARBON DIOXIDE 39.1 MMOL/L (24-32); TOTAL PROTEIN 4.9 G/DL (6.4-8.2); eGFR 80 ML/MIN
[2019-07-27] MEDS: albuterol 2.5 MG/3 ML nebule NEB SCH ×2 (07:00→11:00)
[2019-07-27] MEDS: famotidine/PF 10 mg/ml inj IV SCH ×2 (07:15→19:38)
[2019-07-27] MEDS: lactobacillus rhamnosus 10,000 MMU CELLS/CAPSULE CORPAK SCH ×2 (07:15→19:38)
[2019-07-27] MEDS: FENTANYL-0.9 % NACL/PF 100 ML IV PRN ×2 (07:15→18:22)
[2019-07-27] MEDS: digoxin 125mcg (0.125mg) tablet NG SCH (07:15)
[2019-07-27] MEDS: docusate sodium 100mg/10ml UD cup NG SCH ×2 (07:16→19:39)
[2019-07-27] MEDS: enoxaparin 50mg/0.5ml (from 3ml vial) syringe SUBCUT SCH ×2 (09:50→19:39)
--- NOTE | 2019-07-27 18:05 | NUR ---
RN Note -pt left for OR Addendum: 07/27/19 at 2215 by Carol Rubin RN note entered on wrong pt
--- NOTE | 2019-07-27 18:18 | NUR ---
Problems reprioritized. Patient report given, questions answered & plan of care reviewed with Mac RN.
[2019-07-27] MEDS ORDERED: amiodarone 150mg/dext, iso-os 100 ML IV ONE ×2 (23:32→23:35)
[2019-07-27] MEDS: amiodarone/D5 360MG/200ML BAG 200 ML IV SCH (23:52)
--- NOTE | 2019-07-27 23:53 | NUR ---
RN Note -A-fib w/RVR Pt went into rapid rate in s. April at bedside. Started Amio drip and kevin labs. Pt responded well, HR 111 at this time
[2019-07-28] VITALS (23 sets, daily range): BP systolic 92–148; BP diastolic 40–82
[2019-07-28 00:07] LABS: ALANINE AMINOTRANSFERASE 23 U/L (12-78); ALBUMIN 1.8 G/DL (3.4-5.0); ALBUMIN/GLOBULIN RATIO 0.5 (1.1-1.5); ALKALINE PHOSPHATASE 54 IU/L (46-116); ANION GAP 0 (8-16); ASPARTATE AMINO TRANSFERASE 22 U/L (10-37); BILIRUBIN,TOTAL 0.3 MG/DL (0.1-1.0); BLOOD UREA NITROGEN 24 MG/DL (7-18); BUN/CREATININE RATIO 33.8 (6.6-38.0); CHLORIDE 100 MMOL/L (99-107); CREATININE 0.71 MG/DL (0.40-0.90); GLUCOSE 166 MG/DL (70-104); MAGNESIUM 1.9 MG/DL (1.5-2.4); POTASSIUM 4.9 MMOL/L (3.5-5.1); SODIUM 135 MMOL/L (135-145); TOTAL CARBON DIOXIDE 35.4 MMOL/L (24-32); TOTAL PROTEIN 5.3 G/DL (6.4-8.2); eGFR 79 ML/MIN
[2019-07-28 00:14] LABS: BASOPHILS # (AUTO) 0.1 X10'3 (0-0.2); BASOPHILS % (AUTO) 0.5 % (0-1); EOSINOPHILS # (AUTO) 0.4 X10'3 (0-0.9); EOSINOPHILS % (AUTO) 3.6 % (0-6); HEMATOCRIT 28.6 % (35.0-45.0); HEMOGLOBIN 9.4 g/dl (12.0-16.0); LYMPHOCYTES # (AUTO) 1.3 X10'3 (1.1-4.8); LYMPHOCYTES % (AUTO) 12.8 % (21-51); MEAN CORPUSCULAR HEMOGLOBIN 31.7 PG (27.0-31.0); MEAN CORPUSCULAR HGB CONC 33.1 g/dL (33.0-36.5); MEAN CORPUSCULAR VOLUME 95.7 FL (78-98); MEAN PLATELET VOLUME 7.8 FL (7.4-10.4); MONOCYTES # (AUTO) 0.8 X10'3 (0-0.9); MONOCYTES % (AUTO) 7.8 % (2-12); NEUTROPHILS # (AUTO) 7.7 X10'3 (1.8-7.7); NEUTROPHILS % (AUTO) 75.3 % (42-75); PLATELET COUNT 307 X10'3 (140-440); RED BLOOD COUNT 2.98 X10'6 (4.20-5.60); RED CELL DISTRIBUTION WIDTH 19.4 % (11.5-14.5); WHITE BLOOD COUNT 10.3 X10'3 (4.5-11.0)
[2019-07-28 00:44] LABS: ANISOCYTOSIS 2+; GIANT PLATELET FEW; PLATELET ESTIMATE NORMAL
[2019-07-28] MEDS: mineral oil/petrolatum ophthal oint EACHEYE SCH ×4 (02:00→20:12)
[2019-07-28] MEDS: ipratropium/albuterol 3ml nebule NEB SCH ×6 (03:18→23:00)
[2019-07-28 03:40] LABS: ABG BASE EXCESS 7.4 mmol/L (-2.0-3.0); ABG HCO3 33.2 mmol/L (22.0-26.0); ABG OXYGEN SATURATION 96.3 % (95-98); ABG PCO2 (T) 55.1 mmHg (35.0-45.0); ABG PH (T) 7.401 (7.350-7.450); ABG PO2 (T) 86.7 mmHg (83-108); FCOHb 0.3 % (0.5-1.5); FMetHb 0.3 % (0.3-1.12); FO2Hb 95.7 % (94-100); PATIENT TEMPERATURE 37.5
[2019-07-28] MEDS: FENTANYL-0.9 % NACL/PF 100 ML IV PRN ×2 (05:44→17:47)
[2019-07-28] MEDS: amiodarone/D5 360MG/200ML BAG 200 ML IV SCH ×4 (05:46→23:48)
[2019-07-28 06:04] LABS: BASOPHILS % (AUTO) 0.4 % (0-1); EOSINOPHILS # (AUTO) 0.2 X10'3 (0-0.9); EOSINOPHILS % (AUTO) 2.8 % (0-6); LYMPHOCYTES # (AUTO) 0.6 X10'3 (1.1-4.8); LYMPHOCYTES % (AUTO) 7.1 % (21-51); MEAN CORPUSCULAR HEMOGLOBIN 31.7 PG (27.0-31.0); MEAN CORPUSCULAR HGB CONC 33.2 g/dL (33.0-36.5); MEAN CORPUSCULAR VOLUME 95.7 FL (78-98); MEAN PLATELET VOLUME 7.5 FL (7.4-10.4); MONOCYTES # (AUTO) 0.7 X10'3 (0-0.9); MONOCYTES % (AUTO) 8.8 % (2-12); NEUTROPHILS # (AUTO) 6.5 X10'3 (1.8-7.7); NEUTROPHILS % (AUTO) 80.9 % (42-75); PLATELET COUNT 299 X10'3 (140-440); RED BLOOD COUNT 2.83 X10'6 (4.20-5.60); RED CELL DISTRIBUTION WIDTH 19.4 % (11.5-14.5)
[2019-07-28 06:18] LABS: ALANINE AMINOTRANSFERASE 19 U/L (12-78); ALBUMIN 1.7 G/DL (3.4-5.0); ALBUMIN/GLOBULIN RATIO 0.5 (1.1-1.5); ALKALINE PHOSPHATASE 45 IU/L (46-116); ANION GAP 2 (8-16); ASPARTATE AMINO TRANSFERASE 18 U/L (10-37); BILIRUBIN,TOTAL 0.3 MG/DL (0.1-1.0); BLOOD UREA NITROGEN 23 MG/DL (7-18); CALCIUM 8.3 MG/DL (8.5-10.1); CHLORIDE 100 MMOL/L (99-107); CREATININE 0.59 MG/DL (0.40-0.90); GLUCOSE 163 MG/DL (70-104); MAGNESIUM 1.9 MG/DL (1.5-2.4); PHOSPHORUS 3.3 MG/DL (2.3-4.5); POTASSIUM 4.5 MMOL/L (3.5-5.1); SODIUM 138 MMOL/L (135-145); TOTAL CARBON DIOXIDE 35.6 MMOL/L (24-32); TOTAL PROTEIN 5.1 G/DL (6.4-8.2); eGFR > 90 ML/MIN
[2019-07-28] MEDS: famotidine/PF 10 mg/ml inj IV SCH ×2 (07:18→20:12)
[2019-07-28] MEDS: digoxin 125mcg (0.125mg) tablet NG SCH (07:19)
[2019-07-28] MEDS: docusate sodium 100mg/10ml UD cup NG SCH ×2 (07:19→20:00)
[2019-07-28] MEDS: lactobacillus rhamnosus 10,000 MMU CELLS/CAPSULE CORPAK SCH ×2 (07:19→20:12)
[2019-07-28] MEDS: enoxaparin 50mg/0.5ml (from 3ml vial) syringe SUBCUT SCH ×2 (07:43→20:13)
--- NOTE | 2019-07-28 11:25 | NUR ---
F/u: Pt tolerating TF at goal; has been reintubated s/p return to OR yesterday 07/26 for AAA leak repair per surgeon note. IF to remain intubated post-op would benefit from lower fiber more elemental formula to ensure optimal tolerance and to meet protein needs. LBM 07/26. Will continue to monitor. Recommendations: 1) Continuous Jevity 1.2 with goal rate of 55 mL/hr to provide: 1320 mL total volume/day, 1584 kcal, 73 g protein, and 1065 mL water 2) IF to remain intubated post-op; recommend Vital AF at 55ml/hr to met critical care intubation needs post-op 3) Additional 85 mL water flush Q4H; monitor serum Na 4) Prealbumin q /; daily weights 5) upon extubation; advance diet as medically indicated to regular pending ST reassessment 6) Routine bowel care Addendum: 07/28/19 at [address] Amended: Links added.
--- NOTE | 2019-07-28 12:38 | NUR ---
1200 [facility] to left chest tube changed at 2000mL.
[2019-07-28] MEDS ORDERED: diltiazem 30mg tablet PO SCH (14:00)
--- NOTE | 2019-07-28 18:07 | NUR ---
Problems reprioritized. Patient report given, questions answered & plan of care reviewed with Margaret HOUSTON.
--- NOTE | 2019-07-28 18:30 | NUR ---
Patient in room ICU 2042. I have received report from Cynthia HOUSTON and had the opportunity to ask questions and assume patient care.
[2019-07-28] MEDS: amiodarone 200mg tablet PO SCH (20:12)
[2019-07-29] VITALS (24 sets, daily range): BP systolic 89–156; BP diastolic 39–91
[2019-07-29] MEDS: mineral oil/petrolatum ophthal oint EACHEYE SCH ×4 (02:15→19:40)
[2019-07-29] MEDS: ipratropium/albuterol 3ml nebule NEB SCH ×5 (03:00→20:50)
[2019-07-29] MEDS: FENTANYL-0.9 % NACL/PF 100 ML IV PRN (03:11)
[2019-07-29 03:16] LABS: ABG OXYGEN SATURATION 97.2 % (95-98); ABG PH (T) 7.433 (7.350-7.450); ABG PO2 (T) 98.5 mmHg (83-108); FCOHb 0.3 % (0.5-1.5); FMetHb 0.3 % (0.3-1.12); FO2Hb 96.6 % (94-100); PATIENT TEMPERATURE 38.2; TOTAL HEMOGLOBIN 10.1 G/dl (12.0-16.0)
[2019-07-29] MEDS: amiodarone/D5 360MG/200ML BAG 200 ML IV SCH ×5 (04:43→23:33)
--- NOTE | 2019-07-29 05:30 | NUR ---
After am xray patient agitated and restless. heart rate Afib into the 150's non sustaining. Notified April BOOM Leroy No new orders at this time. Will continue to monitor.
[2019-07-29 05:32] LABS: BASOPHILS % (AUTO) 0.5 % (0-1); EOSINOPHILS # (AUTO) 0.2 X10'3 (0-0.9); EOSINOPHILS % (AUTO) 2.1 % (0-6); HEMATOCRIT 27.7 % (35.0-45.0); HEMOGLOBIN 9.3 g/dl (12.0-16.0); LYMPHOCYTES # (AUTO) 0.7 X10'3 (1.1-4.8); LYMPHOCYTES % (AUTO) 7.6 % (21-51); MEAN CORPUSCULAR HEMOGLOBIN 32.1 PG (27.0-31.0); MEAN CORPUSCULAR HGB CONC 33.7 g/dL (33.0-36.5); MEAN CORPUSCULAR VOLUME 95.3 FL (78-98); MEAN PLATELET VOLUME 7.5 FL (7.4-10.4); MONOCYTES # (AUTO) 0.9 X10'3 (0-0.9); MONOCYTES % (AUTO) 9.2 % (2-12); NEUTROPHILS # (AUTO) 7.6 X10'3 (1.8-7.7); NEUTROPHILS % (AUTO) 80.6 % (42-75); PLATELET COUNT 300 X10'3 (140-440); RED CELL DISTRIBUTION WIDTH 19.1 % (11.5-14.5); WHITE BLOOD COUNT 9.4 X10'3 (4.5-11.0)
[2019-07-29 05:43] LABS: ALANINE AMINOTRANSFERASE 20 U/L (12-78); ALBUMIN 1.7 G/DL (3.4-5.0); ALBUMIN/GLOBULIN RATIO 0.5 (1.1-1.5); ALKALINE PHOSPHATASE 49 IU/L (46-116); ANION GAP 1 (8-16); ASPARTATE AMINO TRANSFERASE 21 U/L (10-37); BILIRUBIN,TOTAL 0.2 MG/DL (0.1-1.0); BLOOD UREA NITROGEN 22 MG/DL (7-18); BUN/CREATININE RATIO 39.3 (6.6-38.0); CALCIUM 7.9 MG/DL (8.5-10.1); CHLORIDE 99 MMOL/L (99-107); CREATININE 0.56 MG/DL (0.40-0.90); GLUCOSE 120 MG/DL (70-104); POTASSIUM 4.6 MMOL/L (3.5-5.1); PREALBUMIN 12.6 MG/DL (19-36); SODIUM 135 MMOL/L (135-145); TOTAL CARBON DIOXIDE 35.2 MMOL/L (24-32); TOTAL PROTEIN 5.1 G/DL (6.4-8.2); eGFR > 90 ML/MIN
--- NOTE | 2019-07-29 06:15 | NUR ---
Problems reprioritized. Patient report given, questions answered & plan of care reviewed with Kimo HOUSTON.
[2019-07-29] MEDS: docusate sodium 100mg/10ml UD cup NG SCH ×2 (07:28→19:40)
[2019-07-29] MEDS: famotidine/PF 10 mg/ml inj IV SCH ×2 (07:36→19:39)
[2019-07-29] MEDS: amiodarone 200mg tablet PO SCH ×3 (07:36→20:00)
[2019-07-29] MEDS: lactobacillus rhamnosus 10,000 MMU CELLS/CAPSULE CORPAK SCH ×3 (07:36→20:00)
[2019-07-29] MEDS: digoxin 125mcg (0.125mg) tablet NG SCH (07:37)
[2019-07-29] MEDS: enoxaparin 50mg/0.5ml (from 3ml vial) syringe SUBCUT SCH ×2 (08:00→19:40)
[2019-07-29] MEDS ORDERED: acetaminophen 1,000mg/100ml IV 100 ML IV ONE (09:25)
[2019-07-29] MEDS ORDERED: FENTANYL-0.9 % NACL/PF 100 ML IV PRN (10:15)
[2019-07-29] MEDS ORDERED: ipratropium/albuterol 3ml nebule NEB PRN (11:25)
[2019-07-29] MEDS ORDERED: racepinephrine 11.25mg/0.5ml nebule NEB PRN (11:25)
--- NOTE | 2019-07-29 12:34 | NUR ---
Follow up: patient extubated, corpak was removed due to curled up in throat per bedside RN and will receive another BSS swallow today. If does not pass swallow may need to continue tube feeds with another corpak. If can pass swallow recommend to advance diet as medically indicated per ST recommendations. She is s/p return to OR yesterday 07/26 for AAA leak repair per surgeon note. Will continue to monitor. Recommendations: 1) If fails swallow eval would benefit from corpak with continuous tube feeding using Jevity 1.2 with goal rate of 55 mL/hr to provide: 1320 mL total volume/day, 1584 kcal, 73 g protein, and 1065 mL water 2) If corpak replaced if fails BSS and if to receive TF continue additional 85 mL water flush q 4 hours; monitor serum Na 3) If above, Prealbumin q /; daily weights 4) BSS post extubated, advance diet as medically indicated per recommendations is passes swallow eval 5) Routine bowel care Addendum: 07/29/19 at [address] Amended: Links added.
--- NOTE | 2019-07-29 13:49 | NUR ---
per Pamela and wound care team, wound vac can be removed and island dressing can be applied. If drainage picks back up then contact Raffit to ask for wound vac again.
--- NOTE | 2019-07-29 14:58 | NUR ---
patient has been having very frequent loose stools. Rectal tube placed per Dr. Slaughter
[2019-07-29] MEDS ORDERED: dextrose 5%-1/2 normal saline 1,000 ML IV SCH (19:55)
--- NOTE | 2019-07-29 19:57 | NUR ---
Received patient report from Elyssa HOUSTON. Pt extubated with PO amiodarone ordered. No official swallow study completed yet. Discussed with provider. Bedside swallow study attempted. HOB 90*, patient failed. Unable to take PO meds. Notified Codi Leroy NP.
[2019-07-29] MEDS: fentaNYL/PF 50MCG/1 ML 2ML syringe IV PRN ×2 (22:09→22:17)
[2019-07-30] VITALS (24 sets, daily range): BP systolic 99–155; BP diastolic 45–65
[2019-07-30] MEDS: mineral oil/petrolatum ophthal oint EACHEYE SCH ×5 (02:00→19:26)
--- NOTE | 2019-07-30 02:00 | NUR ---
Problems reprioritized. Patient report given, questions answered & plan of care reviewed with [Audelia HOUSTON].
--- NOTE | 2019-07-30 02:00 | NUR ---
Pt report given to Stew HOUSTON
[2019-07-30 02:23] LABS: BASOPHILS % (AUTO) 0.3 % (0-1); EOSINOPHILS % (AUTO) 0 % (0-6); HEMATOCRIT 27.1 % (35.0-45.0); HEMOGLOBIN 8.9 g/dl (12.0-16.0); LYMPHOCYTES # (AUTO) 0.2 X10'3 (1.1-4.8); LYMPHOCYTES % (AUTO) 2.1 % (21-51); MEAN CORPUSCULAR HEMOGLOBIN 31.7 PG (27.0-31.0); MEAN CORPUSCULAR VOLUME 96.2 FL (78-98); MEAN PLATELET VOLUME 7.8 FL (7.4-10.4); MONOCYTES # (AUTO) 0.5 X10'3 (0-0.9); MONOCYTES % (AUTO) 4.8 % (2-12); NEUTROPHILS # (AUTO) 10.4 X10'3 (1.8-7.7); NEUTROPHILS % (AUTO) 92.8 % (42-75); PLATELET COUNT 308 X10'3 (140-440); RED BLOOD COUNT 2.82 X10'6 (4.20-5.60); RED CELL DISTRIBUTION WIDTH 19.6 % (11.5-14.5); WHITE BLOOD COUNT 11.2 X10'3 (4.5-11.0)
[2019-07-30 02:41] LABS: ALANINE AMINOTRANSFERASE 45 U/L (12-78); ALBUMIN 1.7 G/DL (3.4-5.0); ALBUMIN/GLOBULIN RATIO 0.5 (1.1-1.5); ALKALINE PHOSPHATASE 141 IU/L (46-116); ANION GAP 0 (8-16); ASPARTATE AMINO TRANSFERASE 70 U/L (10-37); BILIRUBIN,TOTAL 1.2 MG/DL (0.1-1.0); BLOOD UREA NITROGEN 17 MG/DL (7-18); BUN/CREATININE RATIO 27.9 (6.6-38.0); CHLORIDE 100 MMOL/L (99-107); CREATININE 0.61 MG/DL (0.40-0.90); GLUCOSE 122 MG/DL (70-104); MAGNESIUM 1.9 MG/DL (1.5-2.4); PHOSPHORUS 2.8 MG/DL (2.3-4.5); POTASSIUM 3.4 MMOL/L (3.5-5.1); SODIUM 137 MMOL/L (135-145); TOTAL CARBON DIOXIDE 37.4 MMOL/L (24-32); TOTAL PROTEIN 5.3 G/DL (6.4-8.2); eGFR > 90 ML/MIN
[2019-07-30] MEDS: ipratropium/albuterol 3ml nebule NEB SCH ×4 (03:24→20:18)
[2019-07-30] MEDS: fentaNYL/PF 50MCG/1 ML 2ML syringe IV PRN ×2 (04:19→11:00)
[2019-07-30 04:27] LABS: PLATELET ESTIMATE NORMAL
[2019-07-30] MEDS: ondansetron/PF 4mg/2ml inj IV PRN ×2 (04:27→10:27)
[2019-07-30 04:28] LABS: ANISOCYTOSIS 2+
[2019-07-30] MEDS: potassium CL 10mEq/100ml bag 100 ML IV PRN ×4 (04:29→08:09)
[2019-07-30] MEDS: amiodarone/D5 360MG/200ML BAG 200 ML IV SCH ×4 (05:37→23:49)
--- NOTE | 2019-07-30 06:13 | NUR ---
Problems reprioritized. Patient report given, questions answered & plan of care reviewed with Maria Antonia HOUSTON.
--- NOTE | 2019-07-30 07:02 | NUR ---
Patient in room ICU . I have received report from Stew HOUSTON and had the opportunity to ask questions and assume patient care.
[2019-07-30] MEDS: docusate sodium 100mg/10ml UD cup NG SCH ×2 (08:00→19:26)
[2019-07-30] MEDS: famotidine/PF 10 mg/ml inj IV SCH ×2 (09:05→19:24)
[2019-07-30] MEDS: enoxaparin 50mg/0.5ml (from 3ml vial) syringe SUBCUT SCH ×2 (09:30→19:24)
--- NOTE | 2019-07-30 11:30 | NUR ---
Corpak inserted into left nare, patient tolerated well, placed to seth #70. Auscultated and confirmation chest xray ordered for 1215
--- NOTE | 2019-07-30 11:55 | NUR ---
Reassessment: Pt s/p BSS today with ST recs NPO and reassess as pt is swallowing better but still not consistently protecting her airway per ST note. Per RN pt with Corpak in place and to resume TF, to begin at 20 mL/hr and advance to goal rate of 55 mL/hr. LBM 07/28. Will continue to follow closely. Recommendations: 1) Continuous tube feeding via Corpak using Jevity 1.2 with goal rate of 55 mL/hr to provide: 1320 mL total volume/day, 1584 kcal, 73 g protein, and 1065 mL water 2) Additional 85 mL water flush q 4 hours; monitor serum Na 3) Prealbumin q /; daily weights 4) Advance diet as medically indicated per ST recommendations 5) Routine bowel care Addendum: 07/30/19 at [address] Amended: Links added.
--- NOTE | 2019-07-30 13:06 | NUR ---
Jevity 1.2 initiated. Initial rate of 20 ml/hr, and if tolerated will be increased by 20 ml @ 2100 per order
[2019-07-30] MEDS: lactobacillus rhamnosus 10,000 MMU CELLS/CAPSULE CORPAK SCH ×2 (13:18→19:24)
[2019-07-30] MEDS: amiodarone 200mg tablet PO SCH ×2 (13:18→19:24)
[2019-07-30] MEDS: digoxin 125mcg (0.125mg) tablet NG SCH (13:18)
--- NOTE | 2019-07-30 18:12 | NUR ---
Problems reprioritized. Patient report given, questions answered & plan of care reviewed with Cathy HOUSTON.
--- NOTE | 2019-07-30 18:34 | NUR ---
Patient in room ICU 2042. I have received report from Shahrzad HOUSTON and Vanessa HOUSTON and had the opportunity to ask questions and assume patient care.
[2019-07-31] VITALS (23 sets, daily range): BP systolic 104–157; BP diastolic 43–87
--- NOTE | 2019-07-31 01:01 | NUR ---
New CorPak placed. Placement confirmed with xray. Mariaa NUR okd to resume tube feed.
[2019-07-31] MEDS: mineral oil/petrolatum ophthal oint EACHEYE SCH ×4 (01:02→20:37)
[2019-07-31] MEDS: ipratropium/albuterol 3ml nebule NEB SCH ×4 (03:00→20:15)
[2019-07-31 05:35] LABS: BASOPHILS % (AUTO) 0.3 % (0-1); EOSINOPHILS % (AUTO) 0.1 % (0-6); LYMPHOCYTES # (AUTO) 0.6 X10'3 (1.1-4.8); LYMPHOCYTES % (AUTO) 5.2 % (21-51); MEAN CORPUSCULAR HEMOGLOBIN 31.3 PG (27.0-31.0); MEAN CORPUSCULAR HGB CONC 32.3 g/dL (33.0-36.5); MEAN CORPUSCULAR VOLUME 96.9 FL (78-98); MEAN PLATELET VOLUME 7.8 FL (7.4-10.4); MONOCYTES # (AUTO) 0.6 X10'3 (0-0.9); MONOCYTES % (AUTO) 5.6 % (2-12); NEUTROPHILS # (AUTO) 9.5 X10'3 (1.8-7.7); NEUTROPHILS % (AUTO) 88.8 % (42-75); PLATELET COUNT 360 X10'3 (140-440); RED CELL DISTRIBUTION WIDTH 20.2 % (11.5-14.5); WHITE BLOOD COUNT 10.7 X10'3 (4.5-11.0)
[2019-07-31] MEDS: amiodarone/D5 360MG/200ML BAG 200 ML IV SCH ×3 (05:53→17:49)
[2019-07-31 05:57] LABS: ALANINE AMINOTRANSFERASE 50 U/L (12-78); ALBUMIN 1.9 G/DL (3.4-5.0); ALBUMIN/GLOBULIN RATIO 0.5 (1.1-1.5); ALKALINE PHOSPHATASE 115 IU/L (46-116); ANION GAP 3 (8-16); ASPARTATE AMINO TRANSFERASE 52 U/L (10-37); BILIRUBIN,TOTAL 0.6 MG/DL (0.1-1.0); BLOOD UREA NITROGEN 16 MG/DL (7-18); BUN/CREATININE RATIO 22.2 (6.6-38.0); CALCIUM 8.6 MG/DL (8.5-10.1); CHLORIDE 100 MMOL/L (99-107); CREATININE 0.72 MG/DL (0.40-0.90); GLUCOSE 91 MG/DL (70-104); POTASSIUM 3.6 MMOL/L (3.5-5.1); SODIUM 138 MMOL/L (135-145); TOTAL CARBON DIOXIDE 35.1 MMOL/L (24-32); TOTAL PROTEIN 5.5 G/DL (6.4-8.2); TRIGLYCERIDES 86 MG/DL (20-135); eGFR 77 ML/MIN
--- NOTE | 2019-07-31 06:01 | NUR ---
Problems reprioritized. Patient report given, questions answered & plan of care reviewed with Jess HOUSTON.
--- NOTE | 2019-07-31 06:15 | NUR ---
Patient in room ICU 2042. I have received report from shift commander and had the opportunity to ask questions and assume patient care.
[2019-07-31 07:14] LABS: ANISOCYTOSIS 3+; PLATELET ESTIMATE NORMAL
[2019-07-31] MEDS: digoxin 125mcg (0.125mg) tablet NG SCH (07:35)
[2019-07-31] MEDS: docusate sodium 100mg/10ml UD cup NG SCH ×2 (07:35→20:37)
[2019-07-31] MEDS: lactobacillus rhamnosus 10,000 MMU CELLS/CAPSULE CORPAK SCH ×2 (07:35→20:37)
[2019-07-31] MEDS: famotidine/PF 10 mg/ml inj IV SCH ×2 (07:35→20:37)
[2019-07-31] MEDS: amiodarone 200mg tablet PO SCH ×2 (07:35→20:37)
[2019-07-31] MEDS: enoxaparin 50mg/0.5ml (from 3ml vial) syringe SUBCUT SCH ×2 (11:25→20:39)
--- NOTE | 2019-07-31 18:03 | NUR ---
Problems reprioritized. Patient report given, questions answered & plan of care reviewed with oncoming shift.
[2019-08-01] VITALS (24 sets, daily range): BP systolic 100–152; BP diastolic 39–90
[2019-08-01] MEDS: amiodarone/D5 360MG/200ML BAG 200 ML IV SCH ×2 (00:05→06:09)
[2019-08-01] MEDS: mineral oil/petrolatum ophthal oint EACHEYE SCH ×4 (02:51→21:45)
[2019-08-01] MEDS: ipratropium/albuterol 3ml nebule NEB SCH ×5 (03:00→20:51)
[2019-08-01 03:01] LABS: ALBUMIN 1.8 G/DL (3.4-5.0); ANION GAP -2 (8-16); BLOOD UREA NITROGEN 17 MG/DL (7-18); BUN/CREATININE RATIO 25.4 (6.6-38.0); CALCIUM 8.3 MG/DL (8.5-10.1); CHLORIDE 104 MMOL/L (99-107); CREATININE 0.67 MG/DL (0.40-0.90); GLUCOSE 126 MG/DL (70-104); MAGNESIUM 1.9 MG/DL (1.5-2.4); POTASSIUM 3.9 MMOL/L (3.5-5.1); PREALBUMIN 11.8 MG/DL (19-36); SODIUM 141 MMOL/L (135-145); TOTAL CARBON DIOXIDE 38.7 MMOL/L (24-32); eGFR 84 ML/MIN
[2019-08-01 03:05] LABS: BASOPHILS % (AUTO) 0.2 % (0-1); EOSINOPHILS % (AUTO) 0.2 % (0-6); HEMATOCRIT 27.5 % (35.0-45.0); HEMOGLOBIN 9.1 g/dl (12.0-16.0); LYMPHOCYTES # (AUTO) 0.6 X10'3 (1.1-4.8); LYMPHOCYTES % (AUTO) 7.5 % (21-51); MEAN CORPUSCULAR HEMOGLOBIN 32.4 PG (27.0-31.0); MEAN CORPUSCULAR HGB CONC 33.1 g/dL (33.0-36.5); MEAN CORPUSCULAR VOLUME 98.1 FL (78-98); MEAN PLATELET VOLUME 7.6 FL (7.4-10.4); MONOCYTES # (AUTO) 0.6 X10'3 (0-0.9); MONOCYTES % (AUTO) 7.3 % (2-12); NEUTROPHILS # (AUTO) 6.5 X10'3 (1.8-7.7); NEUTROPHILS % (AUTO) 84.8 % (42-75); PLATELET COUNT 301 X10'3 (140-440); RED BLOOD COUNT 2.81 X10'6 (4.20-5.60); RED CELL DISTRIBUTION WIDTH 20.5 % (11.5-14.5); WHITE BLOOD COUNT 7.7 X10'3 (4.5-11.0)
[2019-08-01 04:01] LABS: ANISOCYTOSIS 3+; PLATELET ESTIMATE NORMAL; TOTAL CELLS COUNTED 100
[2019-08-01 04:03] LABS: SPHEROCYTES FEW
[2019-08-01] MEDS: enoxaparin 50mg/0.5ml (from 3ml vial) syringe SUBCUT SCH ×2 (08:00→21:45)
[2019-08-01] MEDS: docusate sodium 100mg/10ml UD cup NG SCH ×2 (08:28→21:43)
[2019-08-01] MEDS: lactobacillus rhamnosus 10,000 MMU CELLS/CAPSULE CORPAK SCH ×2 (08:28→21:44)
[2019-08-01] MEDS: famotidine/PF 10 mg/ml inj IV SCH ×2 (08:28→21:44)
[2019-08-01] MEDS: amiodarone 200mg tablet PO SCH ×2 (08:41→21:44)
[2019-08-01] MEDS: digoxin 125mcg (0.125mg) tablet NG SCH (08:41)
[2019-08-01] MEDS: HYDROcodone/acetaminophen 5mg/325mg tablet PO PRN (13:40)
--- NOTE | 2019-08-01 18:01 | NUR ---
Problems reprioritized. Patient report given, questions answered & plan of care reviewed with oncoming shift.
--- NOTE | 2019-08-01 18:30 | NUR ---
Patient in room ICU 2042. I have received report from Jess HOUSTON, and had the opportunity to ask questions and assume patient care.
[2019-08-02] VITALS (25 sets, daily range): BP systolic 106–143; BP diastolic 37–90
[2019-08-02] MEDS: mineral oil/petrolatum ophthal oint EACHEYE SCH ×4 (02:00→20:00)
[2019-08-02] MEDS: ipratropium/albuterol 3ml nebule NEB SCH ×4 (03:41→20:01)
[2019-08-02 05:28] LABS: BASOPHILS % (AUTO) 0.1 % (0-1); EOSINOPHILS # (AUTO) 0.1 X10'3 (0-0.9); EOSINOPHILS % (AUTO) 1.3 % (0-6); HEMATOCRIT 29.2 % (35.0-45.0); HEMOGLOBIN 9.4 g/dl (12.0-16.0); LYMPHOCYTES # (AUTO) 0.7 X10'3 (1.1-4.8); LYMPHOCYTES % (AUTO) 8.5 % (21-51); MEAN CORPUSCULAR HEMOGLOBIN 31.3 PG (27.0-31.0); MEAN CORPUSCULAR HGB CONC 32.2 g/dL (33.0-36.5); MEAN CORPUSCULAR VOLUME 97.3 FL (78-98); MEAN PLATELET VOLUME 7.7 FL (7.4-10.4); MONOCYTES # (AUTO) 0.4 X10'3 (0-0.9); MONOCYTES % (AUTO) 4.8 % (2-12); NEUTROPHILS # (AUTO) 6.5 X10'3 (1.8-7.7); NEUTROPHILS % (AUTO) 85.3 % (42-75); PLATELET COUNT 271 X10'3 (140-440); RED CELL DISTRIBUTION WIDTH 19.7 % (11.5-14.5); WHITE BLOOD COUNT 7.7 X10'3 (4.5-11.0)
[2019-08-02 05:48] LABS: ALBUMIN 1.9 G/DL (3.4-5.0); ANION GAP 5 (8-16); BLOOD UREA NITROGEN 19 MG/DL (7-18); BUN/CREATININE RATIO 28.8 (6.6-38.0); CHLORIDE 105 MMOL/L (99-107); CREATININE 0.66 MG/DL (0.40-0.90); GLUCOSE 142 MG/DL (70-104); MAGNESIUM 1.8 MG/DL (1.5-2.4); SODIUM 143 MMOL/L (135-145); TOTAL CARBON DIOXIDE 32.8 MMOL/L (24-32); eGFR 86 ML/MIN
--- NOTE | 2019-08-02 06:24 | NUR ---
Problems reprioritized. Patient report given, questions answered & plan of care reviewed with Rosenda HOUSTON.
--- NOTE | 2019-08-02 06:25 | NUR ---
Patient in room ICU 2042. I have received report from ROSEMARIE Anglin and had the opportunity to ask questions and assume patient care.
[2019-08-02 07:27] LABS: ANISOCYTOSIS 2+; HYPOCHROMASIA 1+; PLATELET ESTIMATE NORMAL
[2019-08-02] MEDS: docusate sodium 100mg/10ml UD cup NG SCH ×2 (08:00→21:51)
[2019-08-02] MEDS: lactobacillus rhamnosus 10,000 MMU CELLS/CAPSULE CORPAK SCH ×2 (08:21→21:51)
[2019-08-02] MEDS: famotidine/PF 10 mg/ml inj IV SCH ×2 (08:22→21:51)
[2019-08-02] MEDS: amiodarone 200mg tablet PO SCH ×2 (08:22→21:51)
[2019-08-02] MEDS: digoxin 125mcg (0.125mg) tablet NG SCH (08:22)
[2019-08-02] MEDS: enoxaparin 50mg/0.5ml (from 3ml vial) syringe SUBCUT SCH ×2 (09:23→22:25)
--- NOTE | 2019-08-02 11:31 | NUR ---
Reassessment: Pt s/p BSS today with recs NPO and reassess. Per ST note pt improving slowly with swallowing but still needs multiple swallow attempts and throat clearing. Patient's nutrient needs continue to be met with nutrition via Corpak. Pt would benefit from PEG for correction nutrition if pt remains a full code and unable to pass BSS. Per MD notes pt recovering slowly and chest tube output is still too high for removal of the chest tube; pt documented with 1360 mL output 07/31. LBM 07/31. Will continue to follow closely. Recommendations: 1) Continuous tube feeding via Corpak using [employer] 1.2 with goal rate of 55 mL/hr to provide: 1320 mL total volume/day, 1584 kcal, 73 g protein, and 1065 mL water 2) Additional 85 mL water flush q 4 hours; monitor serum Na 3) Prealbumin q /; daily weights 4) Advance diet as medically indicated per ST recommendations 5) PEG for salvage determiner nutrition if unable to pass BSS and to remain a full code 6) Routine bowel care Addendum: 08/02/19 at [address] Amended: Links added.
--- NOTE | 2019-08-02 18:00 | NUR ---
Patient in room ICU 2042. I have received report from VANDANA HOUSTON and had the opportunity to ask questions and assume patient care.
--- NOTE | 2019-08-02 18:34 | NUR ---
Problems reprioritized. Patient report given, questions answered & plan of care reviewed with ROSEMARIE Peña.
--- NOTE | 2019-08-02 20:00 | NUR ---
Problems reprioritized. Patient report given, questions answered & plan of care reviewed with Ciarra HOUSTON.
--- NOTE | 2019-08-02 20:00 | NUR ---
Patient in room ICU 2042. I have received report from ROSEMARIE Garduno and had the opportunity to ask questions and assume patient care.
[2019-08-03] VITALS (23 sets, daily range): BP systolic 109–137; BP diastolic 32–83
[2019-08-03] MEDS: mineral oil/petrolatum ophthal oint EACHEYE SCH ×3 (02:00→15:30)
[2019-08-03] MEDS: ipratropium/albuterol 3ml nebule NEB SCH ×4 (03:14→20:05)
[2019-08-03 05:47] LABS: BASOPHILS % (AUTO) 0.2 % (0-1); EOSINOPHILS # (AUTO) 0.1 X10'3 (0-0.9); EOSINOPHILS % (AUTO) 2.1 % (0-6); HEMOGLOBIN 9.5 g/dl (12.0-16.0); LYMPHOCYTES # (AUTO) 0.7 X10'3 (1.1-4.8); MEAN CORPUSCULAR HEMOGLOBIN 31.7 PG (27.0-31.0); MEAN CORPUSCULAR HGB CONC 32.7 g/dL (33.0-36.5); MEAN PLATELET VOLUME 7.6 FL (7.4-10.4); MONOCYTES # (AUTO) 0.4 X10'3 (0-0.9); NEUTROPHILS # (AUTO) 5.4 X10'3 (1.8-7.7); NEUTROPHILS % (AUTO) 80.7 % (42-75); PLATELET COUNT 264 X10'3 (140-440); RED BLOOD COUNT 2.99 X10'6 (4.20-5.60); RED CELL DISTRIBUTION WIDTH 19.9 % (11.5-14.5); WHITE BLOOD COUNT 6.7 X10'3 (4.5-11.0)
--- NOTE | 2019-08-03 06:00 | NUR ---
Problems reprioritized. Patient report given, questions answered & plan of care reviewed with ROSEMARIE Orr.
[2019-08-03 06:21] LABS: ALBUMIN 1.8 G/DL (3.4-5.0); ANION GAP 4 (8-16); BLOOD UREA NITROGEN 19 MG/DL (7-18); BUN/CREATININE RATIO 35.2 (6.6-38.0); CHLORIDE 106 MMOL/L (99-107); CREATININE 0.54 MG/DL (0.40-0.90); GLUCOSE 136 MG/DL (70-104); MAGNESIUM 1.9 MG/DL (1.5-2.4); POTASSIUM 3.8 MMOL/L (3.5-5.1); SODIUM 143 MMOL/L (135-145); TOTAL CARBON DIOXIDE 32.8 MMOL/L (24-32); eGFR > 90 ML/MIN
--- NOTE | 2019-08-03 06:25 | NUR ---
Patient in room ICU 2042. I have received report from Ciarra HOUSTON and had the opportunity to ask questions and assume patient care.
[2019-08-03 06:53] LABS: TOTAL CELLS COUNTED 100
[2019-08-03 06:54] LABS: ANISOCYTOSIS 2+; HYPOCHROMASIA 1+; PLATELET ESTIMATE NORMAL; POLYCHROMASIA FEW
[2019-08-03] MEDS: docusate sodium 100mg/10ml UD cup NG SCH ×2 (08:00→20:00)
[2019-08-03] MEDS: lactobacillus rhamnosus 10,000 MMU CELLS/CAPSULE CORPAK SCH ×2 (08:30→20:58)
[2019-08-03] MEDS: digoxin 125mcg (0.125mg) tablet NG SCH (08:31)
[2019-08-03] MEDS: famotidine/PF 10 mg/ml inj IV SCH ×2 (08:31→20:58)
[2019-08-03] MEDS: amiodarone 200mg tablet PO SCH ×2 (08:31→20:58)
[2019-08-03] MEDS ORDERED: enoxaparin 50mg/0.5ml (from 3ml vial) syringe SUBCUT ONE (09:25)
--- NOTE | 2019-08-03 18:12 | NUR ---
Problems reprioritized. Patient report given, questions answered & plan of care reviewed with Norbert HOUSTON.
[2019-08-03] MEDS: enoxaparin 50mg/0.5ml (from 3ml vial) syringe SUBCUT SCH (21:41)
[2019-08-04] VITALS (24 sets, daily range): BP systolic 114–145; BP diastolic 42–89
--- NOTE | 2019-08-04 00:05 | NUR ---
pulled out her corpak , claimed it bother her eyes , still with periods of confusion , she is refusing to put it back at this time , will try to convince to put back when she wake , and claimed yes to reinsert it later.
[2019-08-04] MEDS: ipratropium/albuterol 3ml nebule NEB SCH ×4 (03:09→20:10)
--- NOTE | 2019-08-04 05:00 | NUR ---
inserted FAIZA vazquez done , read by extension service specialist in charge , Eileen HOUSTON , ok to use
[2019-08-04 05:47] LABS: BASOPHILS % (AUTO) 0.1 % (0-1); EOSINOPHILS # (AUTO) 0.1 X10'3 (0-0.9); EOSINOPHILS % (AUTO) 1.6 % (0-6); HEMATOCRIT 30.8 % (35.0-45.0); HEMOGLOBIN 9.9 g/dl (12.0-16.0); LYMPHOCYTES # (AUTO) 0.6 X10'3 (1.1-4.8); LYMPHOCYTES % (AUTO) 7.2 % (21-51); MEAN CORPUSCULAR HEMOGLOBIN 31.3 PG (27.0-31.0); MEAN CORPUSCULAR HGB CONC 32.2 g/dL (33.0-36.5); MEAN CORPUSCULAR VOLUME 97.2 FL (78-98); MEAN PLATELET VOLUME 7.7 FL (7.4-10.4); MONOCYTES # (AUTO) 0.6 X10'3 (0-0.9); NEUTROPHILS # (AUTO) 6.7 X10'3 (1.8-7.7); NEUTROPHILS % (AUTO) 84.1 % (42-75); PLATELET COUNT 291 X10'3 (140-440); RED BLOOD COUNT 3.17 X10'6 (4.20-5.60); RED CELL DISTRIBUTION WIDTH 20.3 % (11.5-14.5)
[2019-08-04 05:54] LABS: ANION GAP 3 (8-16); BLOOD UREA NITROGEN 19 MG/DL (7-18); BUN/CREATININE RATIO 35.2 (6.6-38.0); CALCIUM 8.5 MG/DL (8.5-10.1); CHLORIDE 108 MMOL/L (99-107); CREATININE 0.54 MG/DL (0.40-0.90); GLUCOSE 108 MG/DL (70-104); POTASSIUM 3.7 MMOL/L (3.5-5.1); SODIUM 144 MMOL/L (135-145); TOTAL CARBON DIOXIDE 32.8 MMOL/L (24-32); eGFR > 90 ML/MIN
--- NOTE | 2019-08-04 06:00 | NUR ---
Patient in room ICU 2042. I have received report from ROSEMARIE Lucio and had the opportunity to ask questions and assume patient care.
--- NOTE | 2019-08-04 06:01 | NUR ---
started feeding as ordered
--- NOTE | 2019-08-04 06:30 | NUR ---
Problems reprioritized. Patient report given, questions answered & plan of care reviewed with AUGUSTO HOUSTON.
[2019-08-04] MEDS: docusate sodium 100mg/10ml UD cup NG SCH ×2 (06:36→19:07)
[2019-08-04 07:21] LABS: ANISOCYTOSIS 3+; PLATELET ESTIMATE NORMAL
[2019-08-04 07:22] LABS: HYPOCHROMASIA 1+; STOMATOCYTES 1+
[2019-08-04] MEDS: digoxin 125mcg (0.125mg) tablet NG SCH (08:08)
[2019-08-04] MEDS: famotidine/PF 10 mg/ml inj IV SCH ×2 (08:08→19:05)
[2019-08-04] MEDS: lactobacillus rhamnosus 10,000 MMU CELLS/CAPSULE CORPAK SCH ×2 (08:08→19:05)
[2019-08-04] MEDS: amiodarone 200mg tablet PO SCH ×2 (08:08→19:05)
[2019-08-04] MEDS: enoxaparin 50mg/0.5ml (from 3ml vial) syringe SUBCUT SCH ×2 (08:09→19:06)
--- NOTE | 2019-08-04 10:11 | NUR ---
Pt's left chest tube dressing site became loose during transfer with PT, pigtail appeared to be out. Charge called dr. Slaughter, obtained chest x-ray order. RN attempted to call Jane/WILD, no answer
--- NOTE | 2019-08-04 12:20 | NUR ---
Leaving unit for chest X-ray 2 view at 12;20 pm on RA. No distress noted.
--- NOTE | 2019-08-04 12:45 | NUR ---
Came back to unit at 1245 pm, pt's heart rate went up to 180's during X-ray but not sustaining.
--- NOTE | 2019-08-04 18:00 | NUR ---
Patient in room ICU 2042. I have received report from Ciarra HOUSTON and had the opportunity to ask questions and assume patient care.
--- NOTE | 2019-08-04 18:00 | NUR ---
Problems reprioritized. Patient report given, questions answered & plan of care reviewed with ROSEMARIE Maynard.
[2019-08-05] VITALS (24 sets, daily range): BP systolic 119–161; BP diastolic 46–85
[2019-08-05] MEDS: ipratropium/albuterol 3ml nebule NEB SCH ×4 (03:00→20:43)
[2019-08-05 03:09] LABS: BASOPHILS % (AUTO) 0.2 % (0-1); EOSINOPHILS # (AUTO) 0.1 X10'3 (0-0.9); EOSINOPHILS % (AUTO) 1.8 % (0-6); HEMATOCRIT 28.6 % (35.0-45.0); HEMOGLOBIN 9.5 g/dl (12.0-16.0); LYMPHOCYTES # (AUTO) 0.6 X10'3 (1.1-4.8); LYMPHOCYTES % (AUTO) 8.1 % (21-51); MEAN CORPUSCULAR HEMOGLOBIN 32.3 PG (27.0-31.0); MEAN CORPUSCULAR HGB CONC 33.1 g/dL (33.0-36.5); MEAN CORPUSCULAR VOLUME 97.6 FL (78-98); MEAN PLATELET VOLUME 7.6 FL (7.4-10.4); MONOCYTES # (AUTO) 0.5 X10'3 (0-0.9); MONOCYTES % (AUTO) 7.7 % (2-12); NEUTROPHILS # (AUTO) 5.8 X10'3 (1.8-7.7); NEUTROPHILS % (AUTO) 82.2 % (42-75); PLATELET COUNT 306 X10'3 (140-440); RED BLOOD COUNT 2.93 X10'6 (4.20-5.60); RED CELL DISTRIBUTION WIDTH 20.1 % (11.5-14.5); WHITE BLOOD COUNT 7.1 X10'3 (4.5-11.0)
[2019-08-05 03:23] LABS: ALBUMIN 1.9 G/DL (3.4-5.0); ANION GAP 6 (8-16); BLOOD UREA NITROGEN 25 MG/DL (7-18); BUN/CREATININE RATIO 41.7 (6.6-38.0); CALCIUM 8.3 MG/DL (8.5-10.1); CHLORIDE 109 MMOL/L (99-107); GLUCOSE 150 MG/DL (70-104); MAGNESIUM 1.9 MG/DL (1.5-2.4); POTASSIUM 3.9 MMOL/L (3.5-5.1); SODIUM 147 MMOL/L (135-145); TOTAL CARBON DIOXIDE 32.3 MMOL/L (24-32); eGFR > 90 ML/MIN
[2019-08-05 04:31] LABS: ANISOCYTOSIS 3+; PLATELET ESTIMATE NORMAL
[2019-08-05 04:32] LABS: HYPOCHROMASIA 1+; POLYCHROMASIA FEW
[2019-08-05 05:16] LABS: PREALBUMIN 11.9 MG/DL (19-36)
--- NOTE | 2019-08-05 06:20 | NUR ---
Patient in room ICU 2042. I have received report from ROSEMARIE Enriquez and had the opportunity to ask questions and assume patient care.
--- NOTE | 2019-08-05 06:31 | NUR ---
Problems reprioritized. Patient report given, questions answered & plan of care reviewed with Jerica HOUSTON.
[2019-08-05] MEDS: amiodarone 200mg tablet PO SCH ×2 (07:50→19:45)
[2019-08-05] MEDS: lactobacillus rhamnosus 10,000 MMU CELLS/CAPSULE CORPAK SCH ×2 (07:50→19:45)
[2019-08-05] MEDS: famotidine/PF 10 mg/ml inj IV SCH ×2 (07:50→19:45)
[2019-08-05] MEDS: docusate sodium 100mg/10ml UD cup NG SCH ×2 (07:51→19:46)
[2019-08-05] MEDS: digoxin 125mcg (0.125mg) tablet NG SCH (07:51)
[2019-08-05] MEDS: enoxaparin 50mg/0.5ml (from 3ml vial) syringe SUBCUT SCH ×2 (09:25→19:45)
--- NOTE | 2019-08-05 09:46 | NUR ---
Chest tubes flushed on right and left by NIRMAL Hernandez
--- NOTE | 2019-08-05 11:06 | NUR ---
reassessment: Pt to remain NPO per LENS POLISHER HAND recs today. Tolerating current corpak feeds at goal; corpak in distal stomach per imaging. GRV 0. LBM 08/04; diarrhea w/ colace held though pt has only had small liquid since 08/01 and likely constipation resolution. Na 147 today; RD d/w RN regarding increasing water flush to 200ml Q4 from current 85ml Q4 if MD agreeable. +13.3kg since admit all bed scaled wts and negative fluid balance past 4 days documented; likely fluctuations in bed scale though no I&O hx prior to 07/31 so unable to determine fluid balance since admit. CTx2 170ml output past 24 hours w/ pleural effusions per MD. Will continue to monitor. Recommendations: 1) Continuous tube feeding via Corpak using Jevity 1.2 with goal rate of 55 mL/hr to provide: 1320 mL total volume/day, 1584 kcal, 73 g protein, and 1065 mL water 2) Additional 85 mL water flush q 4 hours; increased to 200ml Q4 IF MD agreeable 3) Prealbumin q /; daily weights 4) Advance diet as medically indicated per ST recommendations 5) PEG for terminologist nutrition if unable to pass BSS and to remain a full code 6) Routine bowel care Addendum: 08/05/19 at [address] Amended: Links added.
--- NOTE | 2019-08-05 18:00 | NUR ---
Problems reprioritized. Patient report given, questions answered & plan of care reviewed with ROSEMARIE Grijlava.
--- NOTE | 2019-08-05 18:11 | NUR ---
Patient in room ICU 2042. I have received report from ROSEMARIE Corona and had the opportunity to ask questions and assume patient care. Patient is sitting up in bed talking on phone.
[2019-08-06] VITALS (24 sets, daily range): BP systolic 119–151; BP diastolic 48–86
[2019-08-06] MEDS: ipratropium/albuterol 3ml nebule NEB SCH ×4 (03:11→20:22)
[2019-08-06] MEDS: fentaNYL/PF 50MCG/1 ML 2ML syringe IV PRN ×4 (03:12→23:45)
[2019-08-06 05:06] LABS: BASOPHILS % (AUTO) 0.4 % (0-1); EOSINOPHILS # (AUTO) 0.3 X10'3 (0-0.9); EOSINOPHILS % (AUTO) 4.8 % (0-6); HEMOGLOBIN 9.1 g/dl (12.0-16.0); LYMPHOCYTES # (AUTO) 0.7 X10'3 (1.1-4.8); MEAN CORPUSCULAR HEMOGLOBIN 31.6 PG (27.0-31.0); MEAN CORPUSCULAR HGB CONC 32.4 g/dL (33.0-36.5); MEAN CORPUSCULAR VOLUME 97.4 FL (78-98); MEAN PLATELET VOLUME 7.9 FL (7.4-10.4); MONOCYTES # (AUTO) 0.6 X10'3 (0-0.9); MONOCYTES % (AUTO) 8.8 % (2-12); NEUTROPHILS # (AUTO) 4.9 X10'3 (1.8-7.7); PLATELET COUNT 320 X10'3 (140-440); RED BLOOD COUNT 2.88 X10'6 (4.20-5.60); RED CELL DISTRIBUTION WIDTH 19.6 % (11.5-14.5); WHITE BLOOD COUNT 6.5 X10'3 (4.5-11.0)
[2019-08-06 05:12] LABS: ALBUMIN 1.9 G/DL (3.4-5.0); ANION GAP 4 (8-16); BLOOD UREA NITROGEN 28 MG/DL (7-18); BUN/CREATININE RATIO 45.9 (6.6-38.0); CALCIUM 8.2 MG/DL (8.5-10.1); CHLORIDE 110 MMOL/L (99-107); CREATININE 0.61 MG/DL (0.40-0.90); GLUCOSE 132 MG/DL (70-104); MAGNESIUM 1.9 MG/DL (1.5-2.4); POTASSIUM 3.9 MMOL/L (3.5-5.1); SODIUM 148 MMOL/L (135-145); TOTAL CARBON DIOXIDE 34.3 MMOL/L (24-32); eGFR > 90 ML/MIN
--- NOTE | 2019-08-06 06:14 | NUR ---
Problems reprioritized. Patient report given, questions answered & plan of care reviewed with ROSEMARIE Summers.
--- NOTE | 2019-08-06 06:19 | NUR ---
Patient in room ICU 2042. I have received report from Valentine HOUSTON and had the opportunity to ask questions and assume patient care. Addendum: 08/06/19 at 0620 by Melina Champion RN Amended: Links added.
--- NOTE | 2019-08-06 07:12 | NUR ---
Problems reprioritized. Patient report given, questions answered & plan of care reviewed with Elzbieta HOUSTON.
--- NOTE | 2019-08-06 07:18 | NUR ---
Patient in room ICU 2042. I have received report from maddy granado and had the opportunity to ask questions and assume patient care.
[2019-08-06 07:45] LABS: ANISOCYTOSIS 2+; HYPOCHROMASIA 1+; PLATELET ESTIMATE NORMAL; POLYCHROMASIA FEW
[2019-08-06] MEDS: docusate sodium 100mg/10ml UD cup NG SCH ×2 (08:00→20:00)
[2019-08-06] MEDS: enoxaparin 50mg/0.5ml (from 3ml vial) syringe SUBCUT SCH ×2 (08:00→20:15)
[2019-08-06] MEDS: digoxin 125mcg (0.125mg) tablet NG SCH (08:47)
[2019-08-06] MEDS: amiodarone 200mg tablet PO SCH ×2 (08:47→20:08)
[2019-08-06] MEDS: lactobacillus rhamnosus 10,000 MMU CELLS/CAPSULE CORPAK SCH ×2 (08:47→20:08)
[2019-08-06] MEDS: famotidine/PF 10 mg/ml inj IV SCH ×2 (08:48→20:08)
[2019-08-06] MEDS: acetaminophen 325mg/10.15ml oral unit dose solution CORPAK PRN (14:42)
--- NOTE | 2019-08-06 18:15 | NUR ---
Patient in room ICU 2042. I have received report from ROSEMARIE Ruff and had the opportunity to ask questions and assume patient care. Patient resting comfortably, she requested blankets be removed as she was hot.
--- NOTE | 2019-08-06 18:16 | NUR ---
Problems reprioritized. Patient report given, questions answered & plan of care reviewed with ROSEMARIE Silva .
[2019-08-06] MEDS: ondansetron/PF 4mg/2ml inj IV PRN (18:42)
[2019-08-06] MEDS: HYDROcodone/acetaminophen 5mg/325mg tablet PO PRN (20:52)
--- NOTE | 2019-08-06 21:25 | NUR ---
Patient complaining more about pain tonight, lower right abdomen 10/10. She says it is a constant steady ache. I have given her Fentanyl and Corbin, I will continue to monitor
[2019-08-07] VITALS (24 sets, daily range): BP systolic 95–135; BP diastolic 48–69
[2019-08-07] MEDS: ipratropium/albuterol 3ml nebule NEB SCH ×4 (03:17→20:02)
[2019-08-07] MEDS: fentaNYL/PF 50MCG/1 ML 2ML syringe IV PRN (04:51)
[2019-08-07 05:54] LABS: BASOPHILS % (AUTO) 0.5 % (0-1); EOSINOPHILS # (AUTO) 0.5 X10'3 (0-0.9); EOSINOPHILS % (AUTO) 7.8 % (0-6); HEMATOCRIT 31.3 % (35.0-45.0); HEMOGLOBIN 10.2 g/dl (12.0-16.0); LYMPHOCYTES # (AUTO) 0.8 X10'3 (1.1-4.8); LYMPHOCYTES % (AUTO) 12.2 % (21-51); MEAN CORPUSCULAR HEMOGLOBIN 32.1 PG (27.0-31.0); MEAN CORPUSCULAR HGB CONC 32.5 g/dL (33.0-36.5); MEAN CORPUSCULAR VOLUME 98.7 FL (78-98); MEAN PLATELET VOLUME 7.8 FL (7.4-10.4); MONOCYTES # (AUTO) 0.7 X10'3 (0-0.9); MONOCYTES % (AUTO) 9.6 % (2-12); NEUTROPHILS # (AUTO) 4.7 X10'3 (1.8-7.7); NEUTROPHILS % (AUTO) 69.9 % (42-75); PLATELET COUNT 336 X10'3 (140-440); RED BLOOD COUNT 3.17 X10'6 (4.20-5.60); WHITE BLOOD COUNT 6.8 X10'3 (4.5-11.0)
[2019-08-07 06:32] LABS: ALANINE AMINOTRANSFERASE 39 U/L (12-78); ALBUMIN 2.1 G/DL (3.4-5.0); ALBUMIN/GLOBULIN RATIO 0.5 (1.1-1.5); ALKALINE PHOSPHATASE 71 IU/L (46-116); ANION GAP 4 (8-16); ASPARTATE AMINO TRANSFERASE 22 U/L (10-37); BILIRUBIN,TOTAL 0.3 MG/DL (0.1-1.0); BLOOD UREA NITROGEN 29 MG/DL (7-18); BUN/CREATININE RATIO 52.7 (6.6-38.0); CALCIUM 8.5 MG/DL (8.5-10.1); CHLORIDE 108 MMOL/L (99-107); CREATININE 0.55 MG/DL (0.40-0.90); GLUCOSE 125 MG/DL (70-104); PHOSPHORUS 3.7 MG/DL (2.3-4.5); POTASSIUM 5.1 MMOL/L (3.5-5.1); SODIUM 144 MMOL/L (135-145); TOTAL CARBON DIOXIDE 32.1 MMOL/L (24-32); TOTAL PROTEIN 6.3 G/DL (6.4-8.2); TRIGLYCERIDES 53 MG/DL (20-135); eGFR > 90 ML/MIN
--- NOTE | 2019-08-07 06:39 | NUR ---
Problems reprioritized. Patient report given, questions answered & plan of care reviewed with ROSEMARIE Morales.
--- NOTE | 2019-08-07 06:46 | NUR ---
Patient in room ICU 2042. I have received report from Valentine HOUSTON and had the opportunity to ask questions and assume patient care.
[2019-08-07 06:57] LABS: ANISOCYTOSIS 2+; PLATELET ESTIMATE NORMAL
[2019-08-07] MEDS: docusate sodium 100mg/10ml UD cup NG SCH ×2 (08:00→19:52)
[2019-08-07] MEDS: famotidine/PF 10 mg/ml inj IV SCH (08:47)
[2019-08-07] MEDS: lactobacillus rhamnosus 10,000 MMU CELLS/CAPSULE CORPAK SCH ×2 (08:48→19:52)
[2019-08-07] MEDS: digoxin 125mcg (0.125mg) tablet NG SCH (08:48)
[2019-08-07] MEDS: HYDROcodone/acetaminophen 5mg/325mg tablet PO PRN ×2 (08:49→16:55)
[2019-08-07] MEDS: amiodarone 200mg tablet PO SCH ×2 (08:50→19:53)
[2019-08-07] MEDS: enoxaparin 50mg/0.5ml (from 3ml vial) syringe SUBCUT SCH ×2 (09:24→19:52)
[2019-08-07] MEDS ORDERED: furosemide 40mg tablet PO SCH (09:55)
[2019-08-07] MEDS: ondansetron/PF 4mg/2ml inj IV PRN (11:40)
--- NOTE | 2019-08-07 18:30 | NUR ---
Patient in room ICU 2042. I have received report from ROSEMARIE Morales and had the opportunity to ask questions and assume patient care.
--- NOTE | 2019-08-07 18:30 | NUR ---
Problems reprioritized. Patient report given, questions answered & plan of care reviewed with Valarie HOUSTON.
[2019-08-07] MEDS: furosemide 40mg/4ml inj IV SCH (19:52)
[2019-08-08] VITALS (24 sets, daily range): BP systolic 101–128; BP diastolic 38–65
[2019-08-08] MEDS: ondansetron/PF 4mg/2ml inj IV PRN (01:09)
--- NOTE | 2019-08-08 01:10 | NUR ---
Patient c/o sudden onset of nausea. Zofran administered as ordered. Patient also c/o pain to her right rib cage, 5/10 throbbing, intermittent, Patient also c/o "heartburn". Patient repositioned, chest tube assessed. 12- lead EKG ordered. Lincoln 5/325 mg administered for pain. Patient relates she feels better after medications and repositioning.
[2019-08-08] MEDS: HYDROcodone/acetaminophen 5mg/325mg tablet PO PRN ×3 (01:40→20:49)
[2019-08-08] MEDS: ipratropium/albuterol 3ml nebule NEB SCH ×4 (02:45→20:06)
[2019-08-08] MEDS: fentaNYL/PF 50MCG/1 ML 2ML syringe IV PRN (04:37)
[2019-08-08 05:56] LABS: BASOPHILS # (AUTO) 0.1 X10'3 (0-0.2); BASOPHILS % (AUTO) 0.9 % (0-1); EOSINOPHILS # (AUTO) 0.8 X10'3 (0-0.9); EOSINOPHILS % (AUTO) 11.4 % (0-6); HEMATOCRIT 30.2 % (35.0-45.0); HEMOGLOBIN 9.9 g/dl (12.0-16.0); LYMPHOCYTES # (AUTO) 0.9 X10'3 (1.1-4.8); MEAN CORPUSCULAR HEMOGLOBIN 32.2 PG (27.0-31.0); MEAN CORPUSCULAR HGB CONC 32.7 g/dL (33.0-36.5); MEAN CORPUSCULAR VOLUME 98.4 FL (78-98); MONOCYTES # (AUTO) 0.6 X10'3 (0-0.9); MONOCYTES % (AUTO) 8.5 % (2-12); NEUTROPHILS # (AUTO) 4.7 X10'3 (1.8-7.7); NEUTROPHILS % (AUTO) 66.2 % (42-75); PLATELET COUNT 336 X10'3 (140-440); RED BLOOD COUNT 3.07 X10'6 (4.20-5.60); RED CELL DISTRIBUTION WIDTH 19.1 % (11.5-14.5); WHITE BLOOD COUNT 7.1 X10'3 (4.5-11.0)
--- NOTE | 2019-08-08 06:20 | NUR ---
Problems reprioritized. Patient report given, questions answered & plan of care reviewed with ROSEMARIE Morales.
[2019-08-08 06:27] LABS: ANION GAP 4 (8-16); BLOOD UREA NITROGEN 30 MG/DL (7-18); BUN/CREATININE RATIO 46.9 (6.6-38.0); CALCIUM 8.7 MG/DL (8.5-10.1); CHLORIDE 102 MMOL/L (99-107); CREATININE 0.64 MG/DL (0.40-0.90); GLUCOSE 124 MG/DL (70-104); MAGNESIUM 2.1 MG/DL (1.5-2.4); SODIUM 142 MMOL/L (135-145); eGFR 89 ML/MIN
[2019-08-08] MEDS: furosemide 40mg/4ml inj IV SCH ×2 (07:34→21:09)
[2019-08-08] MEDS: lactobacillus rhamnosus 10,000 MMU CELLS/CAPSULE CORPAK SCH ×2 (07:34→20:47)
[2019-08-08] MEDS: docusate sodium 100mg/10ml UD cup NG SCH ×2 (07:34→20:26)
[2019-08-08] MEDS: amiodarone 200mg tablet PO SCH ×2 (07:36→20:46)
[2019-08-08] MEDS: enoxaparin 50mg/0.5ml (from 3ml vial) syringe SUBCUT SCH ×2 (07:36→20:47)
[2019-08-08] MEDS: digoxin 125mcg (0.125mg) tablet NG SCH (07:36)
[2019-08-08 07:44] LABS: ANISOCYTOSIS 2+; PLATELET ESTIMATE NORMAL
--- NOTE | 2019-08-08 10:45 | NUR ---
Pt started to De Saturating down into 60's. Ambu bag started and pt deep suctioned via nares and very large mucus plug was removed. Sats came right back up into 90's. Another large mucus plug was removed when suctioned orally. Pt sats remained in the 90's after on room air.
[2019-08-08] MEDS ORDERED: POTASSIUM BICARB 20meq eff tab 20 MEQ TABLET.EFF CORPAK PRN (12:01)
--- NOTE | 2019-08-08 12:09 | NUR ---
Reassessment: Pt s/p f/u BSS with ST recs NPO and reassess d/t still requiring multiple swallows due to weakness and needs throat clearing. Pt continues tolerating TF at goal rate. Pt may benefit from PEG for alf nutrition if to remain full code and unable to pass BSS. Pt continues with chest tube in place, documented with 550 mL output 08/06 per I&O. LBM 08/06 documented as small with last moderate BM 08/05. Pt receiving routine bowel care. Will continue to follow closely. Recommendations: 1) Continuous tube feeding via Corpak using Jevity 1.2 with goal rate of 55 mL/hr to provide: 1320 mL total volume/day, 1584 kcal, 73 g protein, and 1065 mL water 2) Additional 85 mL water flush q 4 hours 3) Prealbumin q /; daily weights 4) Advance diet as medically indicated per ST recommendations 5) PEG for alf nutrition if unable to pass BSS and to remain a full code 6) Routine bowel care Addendum: 08/08/19 at [address] Amended: Links added.
--- NOTE | 2019-08-08 15:00 | NUR ---
Patient in room ICU 2042. I have received report from ROSEMARIE Morales and had the opportunity to ask questions and assume patient care.
--- NOTE | 2019-08-08 18:30 | NUR ---
Patient in room ICU 2042. I have received report from ROSEMARIE Shah and had the opportunity to ask questions and assume patient care.
[2019-08-09] VITALS (24 sets, daily range): BP systolic 90–136; BP diastolic 39–64
[2019-08-09] MEDS: ipratropium/albuterol 3ml nebule NEB SCH ×4 (02:34→20:24)
[2019-08-09] MEDS: HYDROcodone/acetaminophen 5mg/325mg tablet PO PRN ×5 (03:08→21:40)
--- NOTE | 2019-08-09 05:14 | NUR ---
[id number]: Patient repositioned multiple times throughout shift. Patient calls out "help" when she needs something. Encouraged patient to deep breathe and cough multiple times, oral suction catheter used to suction secretions/ mucous out of the back of her oropharynx. Patient with moist/ course cough. RT consulted regarding patients secretions. Patient appeared to be resting for short periods of time, then would awake and yell for "help" Patient painful to bottom and back. Pain medications administered as ordered. Oral care provided several times throughout shift.
[2019-08-09 06:18] LABS: BASOPHILS % (AUTO) 0.4 % (0-1); EOSINOPHILS # (AUTO) 0.6 X10'3 (0-0.9); EOSINOPHILS % (AUTO) 6.4 % (0-6); HEMATOCRIT 29.7 % (35.0-45.0); HEMOGLOBIN 9.7 g/dl (12.0-16.0); LYMPHOCYTES # (AUTO) 0.7 X10'3 (1.1-4.8); LYMPHOCYTES % (AUTO) 7.6 % (21-51); MEAN CORPUSCULAR HEMOGLOBIN 31.8 PG (27.0-31.0); MEAN CORPUSCULAR HGB CONC 32.8 g/dL (33.0-36.5); MEAN CORPUSCULAR VOLUME 96.9 FL (78-98); MEAN PLATELET VOLUME 8.1 FL (7.4-10.4); MONOCYTES # (AUTO) 0.7 X10'3 (0-0.9); MONOCYTES % (AUTO) 7.2 % (2-12); NEUTROPHILS # (AUTO) 7.3 X10'3 (1.8-7.7); NEUTROPHILS % (AUTO) 78.4 % (42-75); PLATELET COUNT 354 X10'3 (140-440); RED BLOOD COUNT 3.06 X10'6 (4.20-5.60); RED CELL DISTRIBUTION WIDTH 18.8 % (11.5-14.5); WHITE BLOOD COUNT 9.3 X10'3 (4.5-11.0)
--- NOTE | 2019-08-09 06:25 | NUR ---
Problems reprioritized. Patient report given, questions answered & plan of care reviewed with Art, RN.
[2019-08-09 06:50] LABS: ALANINE AMINOTRANSFERASE 28 U/L (12-78); ALBUMIN/GLOBULIN RATIO 0.5 (1.1-1.5); ALKALINE PHOSPHATASE 67 IU/L (46-116); ANION GAP -1 (8-16); ASPARTATE AMINO TRANSFERASE 18 U/L (10-37); BILIRUBIN,TOTAL 0.2 MG/DL (0.1-1.0); BLOOD UREA NITROGEN 34 MG/DL (7-18); BUN/CREATININE RATIO 51.5 (6.6-38.0); CALCIUM 8.4 MG/DL (8.5-10.1); CHLORIDE 100 MMOL/L (99-107); CREATININE 0.66 MG/DL (0.40-0.90); GLUCOSE 114 MG/DL (70-104); POTASSIUM 3.9 MMOL/L (3.5-5.1); SODIUM 139 MMOL/L (135-145); TOTAL CARBON DIOXIDE 39.7 MMOL/L (24-32); eGFR 86 ML/MIN
[2019-08-09 07:19] LABS: ANISOCYTOSIS 2+; HYPOCHROMASIA 1+; LARGE PLATELETS FEW; PLATELET ESTIMATE NORMAL; POLYCHROMASIA FEW
[2019-08-09] MEDS: furosemide 40mg/4ml inj IV SCH ×2 (07:28→20:31)
[2019-08-09] MEDS: amiodarone 200mg tablet PO SCH ×2 (07:28→20:32)
[2019-08-09] MEDS: digoxin 125mcg (0.125mg) tablet NG SCH (07:28)
[2019-08-09] MEDS: docusate sodium 100mg/10ml UD cup NG SCH ×2 (07:28→20:32)
[2019-08-09] MEDS: fentaNYL/PF 50MCG/1 ML 2ML syringe IV PRN (07:29)
[2019-08-09] MEDS: lactobacillus rhamnosus 10,000 MMU CELLS/CAPSULE CORPAK SCH ×2 (07:29→20:32)
[2019-08-09] MEDS: enoxaparin 50mg/0.5ml (from 3ml vial) syringe SUBCUT SCH ×2 (08:23→20:31)
--- NOTE | 2019-08-09 12:56 | NUR ---
Addi Bassett in to dc both chest tubes. Pt tolerated well. Stated felt relieved. 55mls of fluid noted in left chest tube for this shift.
--- NOTE | 2019-08-09 14:30 | NUR ---
pt refusing NT suctioning
--- NOTE | 2019-08-09 14:57 | NUR ---
pt assisted to bedpan. Pt was only able to produce a small smear.
[2019-08-09] MEDS ORDERED: magnesium hydroxide 30ml (MOM) UD suspension PO ONE (16:25)
[2019-08-10] VITALS (25 sets, daily range): BP systolic 93–129; BP diastolic 39–65
[2019-08-10] MEDS: HYDROcodone/acetaminophen 5mg/325mg tablet PO PRN ×6 (02:21→22:35)
[2019-08-10 02:42] LABS: BASOPHILS % (AUTO) 0.1 % (0-1); EOSINOPHILS # (AUTO) 0.2 X10'3 (0-0.9); EOSINOPHILS % (AUTO) 1.2 % (0-6); HEMATOCRIT 30.2 % (35.0-45.0); HEMOGLOBIN 9.5 g/dl (12.0-16.0); LYMPHOCYTES # (AUTO) 0.5 X10'3 (1.1-4.8); LYMPHOCYTES % (AUTO) 3.9 % (21-51); MEAN CORPUSCULAR HEMOGLOBIN 30.8 PG (27.0-31.0); MEAN CORPUSCULAR HGB CONC 31.4 g/dL (33.0-36.5); MEAN PLATELET VOLUME 7.9 FL (7.4-10.4); MONOCYTES # (AUTO) 0.6 X10'3 (0-0.9); MONOCYTES % (AUTO) 4.2 % (2-12); NEUTROPHILS % (AUTO) 90.6 % (42-75); PLATELET COUNT 365 X10'3 (140-440); RED BLOOD COUNT 3.08 X10'6 (4.20-5.60); RED CELL DISTRIBUTION WIDTH 18.5 % (11.5-14.5); WHITE BLOOD COUNT 13.2 X10'3 (4.5-11.0)
[2019-08-10 02:43] LABS: ALBUMIN 2.1 G/DL (3.4-5.0); ANION GAP -6 (8-16); BLOOD UREA NITROGEN 31 MG/DL (7-18); BUN/CREATININE RATIO 41.9 (6.6-38.0); CALCIUM 8.5 MG/DL (8.5-10.1); CHLORIDE 100 MMOL/L (99-107); CREATININE 0.74 MG/DL (0.40-0.90); GLUCOSE 123 MG/DL (70-104); MAGNESIUM 2.3 MG/DL (1.5-2.4); POTASSIUM 4.1 MMOL/L (3.5-5.1); SODIUM 138 MMOL/L (135-145); TROPONIN I < 0.04 NG/ML (0.0-0.05); eGFR 75 ML/MIN
[2019-08-10 02:45] LABS: TOTAL CARBON DIOXIDE 44.2 MMOL/L (24-32)
[2019-08-10] MEDS: ipratropium/albuterol 3ml nebule NEB SCH ×4 (03:01→20:20)
--- NOTE | 2019-08-10 06:15 | NUR ---
Problems reprioritized. Patient report given, questions answered & plan of care reviewed with Art RN.
[2019-08-10] MEDS: amiodarone 200mg tablet PO SCH ×2 (07:24→20:51)
[2019-08-10] MEDS: digoxin 125mcg (0.125mg) tablet NG SCH (07:24)
[2019-08-10] MEDS: furosemide 40mg/4ml inj IV SCH (07:24)
[2019-08-10] MEDS: lactobacillus rhamnosus 10,000 MMU CELLS/CAPSULE CORPAK SCH ×2 (07:24→20:52)
[2019-08-10] MEDS: docusate sodium 100mg/10ml UD cup NG SCH ×2 (07:24→20:52)
--- NOTE | 2019-08-10 07:50 | NUR ---
Dressings changed per order.
[2019-08-10] MEDS: ESCITALOPRAM OXALATE 5 MG TABLET PO SCH (10:03)
[2019-08-10] MEDS: enoxaparin 50mg/0.5ml (from 3ml vial) syringe SUBCUT SCH ×2 (10:04→20:53)
[2019-08-10 11:11] LABS: ABG HCO3 38.4 mmol/L (22.0-26.0); ABG OXYGEN SATURATION 97.8 % (95-98); ABG PCO2 (T) 54.1 mmHg (35.0-45.0); ABG PH (T) 7.469 (7.350-7.450); ABG PO2 (T) 100.3 mmHg (83-108); FCOHb 0.3 % (0.5-1.5); FLOW 2 L/min; FMetHb 0.3 % (0.3-1.12); FO2Hb 97.2 % (94-100); TOTAL HEMOGLOBIN 10.3 G/dl (12.0-16.0)
--- NOTE | 2019-08-10 11:17 | NUR ---
Pt refused physical therapy again today.
[2019-08-10] MEDS: ondansetron/PF 4mg/2ml inj IV PRN (12:43)
[2019-08-10] MEDS: acetaZOLAMIDE IV 500mg inj IV SCH ×3 (14:04→23:59)
--- NOTE | 2019-08-10 16:55 | NUR ---
Diamox held as first dose was given late due to it being a new med. 1600 dose will not be administered.
--- NOTE | 2019-08-10 17:20 | NUR ---
Pt called while pt was sleeping. When pt awoke, I offered to call pt's so she could talk to him. She said she didn't want to talk to him.
--- NOTE | 2019-08-10 18:10 | NUR ---
Patient in room ICU 2042. I have received report from Art RN and had the opportunity to ask questions and assume patient care.
--- NOTE | 2019-08-10 22:30 | NUR ---
pt complains of chest pain that feels like pressure a 9 out of 10, stomach pain, dry mouth, and problems pooping. I spoke with April and was informed pt has had complaints of chest pain before, and that i should look at rhythm stirps to see if there are any changes.
--- NOTE | 2019-08-10 22:40 | NUR ---
Review of pts rhythm strips shows no change from prior strips.
--- NOTE | 2019-08-10 22:46 | NUR ---
I asked pt how her chest felt and she said "better, normal". Addendum: 08/10/19 at 2308 by Saige Mckeon RN I asked pt how her chest felt 2 minutes after administering a norco and she said "better, normal".
[2019-08-11] VITALS (24 sets, daily range): BP systolic 97–139; BP diastolic 31–75
[2019-08-11] MEDS: ipratropium/albuterol 3ml nebule NEB SCH ×4 (03:07→21:16)
[2019-08-11] MEDS: ondansetron/PF 4mg/2ml inj IV PRN ×2 (04:31→11:35)
[2019-08-11 06:01] LABS: BASOPHILS % (AUTO) 0.3 % (0-1); EOSINOPHILS # (AUTO) 0.2 X10'3 (0-0.9); EOSINOPHILS % (AUTO) 1.9 % (0-6); HEMATOCRIT 30.1 % (35.0-45.0); HEMOGLOBIN 9.7 g/dl (12.0-16.0); LYMPHOCYTES # (AUTO) 0.6 X10'3 (1.1-4.8); LYMPHOCYTES % (AUTO) 7.9 % (21-51); MEAN CORPUSCULAR HEMOGLOBIN 31.7 PG (27.0-31.0); MEAN CORPUSCULAR HGB CONC 32.4 g/dL (33.0-36.5); MEAN CORPUSCULAR VOLUME 97.9 FL (78-98); MEAN PLATELET VOLUME 8.4 FL (7.4-10.4); MONOCYTES # (AUTO) 0.6 X10'3 (0-0.9); MONOCYTES % (AUTO) 7.8 % (2-12); NEUTROPHILS # (AUTO) 6.5 X10'3 (1.8-7.7); NEUTROPHILS % (AUTO) 82.1 % (42-75); PLATELET COUNT 343 X10'3 (140-440); RED BLOOD COUNT 3.07 X10'6 (4.20-5.60); RED CELL DISTRIBUTION WIDTH 18.4 % (11.5-14.5); WHITE BLOOD COUNT 7.9 X10'3 (4.5-11.0)
--- NOTE | 2019-08-11 06:15 | NUR ---
Patient in room ICU 2042. I have received report from ROSEMARIE Bernal and had the opportunity to ask questions and assume patient care.
--- NOTE | 2019-08-11 06:38 | NUR ---
Problems reprioritized. Patient report given, questions answered & plan of care reviewed with Amberly HOUSTON.
[2019-08-11 06:55] LABS: ALBUMIN 2.1 G/DL (3.4-5.0); ANION GAP 4 (8-16); BLOOD UREA NITROGEN 32 MG/DL (7-18); BUN/CREATININE RATIO 47.1 (6.6-38.0); CHLORIDE 96 MMOL/L (99-107); CREATININE 0.68 MG/DL (0.40-0.90); GLUCOSE 129 MG/DL (70-104); MAGNESIUM 2.1 MG/DL (1.5-2.4); POTASSIUM 3.7 MMOL/L (3.5-5.1); SODIUM 133 MMOL/L (135-145); TOTAL CARBON DIOXIDE 33.1 MMOL/L (24-32); eGFR 83 ML/MIN
[2019-08-11] MEDS: furosemide 40mg/4ml inj IV SCH (08:09)
[2019-08-11] MEDS: acetaZOLAMIDE IV 500mg inj IV SCH (08:09)
[2019-08-11] MEDS: digoxin 125mcg (0.125mg) tablet NG SCH (08:09)
[2019-08-11] MEDS: amiodarone 200mg tablet PO SCH ×2 (08:10→20:06)
[2019-08-11] MEDS: ESCITALOPRAM OXALATE 5 MG TABLET PO SCH (08:10)
[2019-08-11] MEDS: docusate sodium 100mg/10ml UD cup NG SCH ×2 (08:10→20:06)
[2019-08-11] MEDS: lactobacillus rhamnosus 10,000 MMU CELLS/CAPSULE CORPAK SCH ×2 (08:10→20:06)
[2019-08-11] MEDS: enoxaparin 50mg/0.5ml (from 3ml vial) syringe SUBCUT SCH ×2 (08:52→21:28)
--- NOTE | 2019-08-11 11:38 | NUR ---
Reassessment: Pt tolerating TF at goal; remains NPO per PIPE CUTTER recs. LBM 08/08 receiving colace. Na previously WNL now 133 w/ 85ml Q4 water flushes; will monitor for free water adjustments pending further Na trends. Will continue to monitor. Recommendations: 1) Continuous tube feeding via Corpak using Jevity 1.2 with goal rate of 55 mL/hr to provide: 1320 mL total volume/day, 1584 kcal, 73 g protein, and 1065 mL water 2) Additional 85 mL water flush q 4 hours 3) Prealbumin q /; daily weights 4) Advance to regular diet as medically indicated per ST recommendations 5) PEG for intermediate project manager nutrition if unable to pass BSS and to remain a full code 6) Routine bowel care Addendum: 08/11/19 at [address] Amended: Links added.
[2019-08-11] MEDS: HYDROcodone/acetaminophen 5mg/325mg tablet PO PRN (12:45)
--- NOTE | 2019-08-11 18:16 | NUR ---
Problems reprioritized. Patient report given, questions answered & plan of care reviewed with ROSEMARIE Malin.
--- NOTE | 2019-08-11 18:16 | NUR ---
Patient in room ICU 2042. I have received report from ROSEMARIE Gaming and had the opportunity to ask questions and assume patient care.
[2019-08-12] VITALS (19 sets, daily range): BP systolic 98–149; BP diastolic 36–76
[2019-08-12] MEDS: ipratropium/albuterol 3ml nebule NEB SCH ×4 (03:00→21:11)
[2019-08-12 06:31] LABS: BASOPHILS % (AUTO) 0.2 % (0-1); EOSINOPHILS # (AUTO) 0.1 X10'3 (0-0.9); EOSINOPHILS % (AUTO) 0.8 % (0-6); HEMOGLOBIN 9.7 g/dl (12.0-16.0); LYMPHOCYTES # (AUTO) 0.7 X10'3 (1.1-4.8); LYMPHOCYTES % (AUTO) 9.2 % (21-51); MEAN CORPUSCULAR HEMOGLOBIN 31.2 PG (27.0-31.0); MEAN CORPUSCULAR HGB CONC 32.1 g/dL (33.0-36.5); MONOCYTES # (AUTO) 0.6 X10'3 (0-0.9); MONOCYTES % (AUTO) 7.9 % (2-12); NEUTROPHILS # (AUTO) 5.9 X10'3 (1.8-7.7); NEUTROPHILS % (AUTO) 81.9 % (42-75); PLATELET COUNT 326 X10'3 (140-440); RED CELL DISTRIBUTION WIDTH 17.9 % (11.5-14.5); WHITE BLOOD COUNT 7.2 X10'3 (4.5-11.0)
--- NOTE | 2019-08-12 06:31 | NUR ---
Problems reprioritized. Patient report given, questions answered & plan of care reviewed with ROSEMARIE Shepard.
[2019-08-12 06:39] LABS: ANION GAP 4 (8-16); BLOOD UREA NITROGEN 29 MG/DL (7-18); BUN/CREATININE RATIO 43.9 (6.6-38.0); CALCIUM 8.9 MG/DL (8.5-10.1); CHLORIDE 97 MMOL/L (99-107); CREATININE 0.66 MG/DL (0.40-0.90); GLUCOSE 118 MG/DL (70-104); MAGNESIUM 1.9 MG/DL (1.5-2.4); POTASSIUM 3.5 MMOL/L (3.5-5.1); SODIUM 135 MMOL/L (135-145); TOTAL CARBON DIOXIDE 33.6 MMOL/L (24-32); eGFR 86 ML/MIN
[2019-08-12] MEDS: lactobacillus rhamnosus 10,000 MMU CELLS/CAPSULE CORPAK SCH ×2 (07:12→20:23)
[2019-08-12] MEDS: docusate sodium 100mg/10ml UD cup NG SCH ×2 (07:12→20:00)
[2019-08-12] MEDS: amiodarone 200mg tablet PO SCH ×2 (07:12→20:22)
[2019-08-12] MEDS: ESCITALOPRAM OXALATE 5 MG TABLET PO SCH (07:13)
[2019-08-12] MEDS: furosemide 40mg/4ml inj IV SCH (07:13)
[2019-08-12] MEDS: digoxin 125mcg (0.125mg) tablet NG SCH (07:13)
[2019-08-12] MEDS: enoxaparin 50mg/0.5ml (from 3ml vial) syringe SUBCUT SCH ×2 (07:16→20:23)
[2019-08-12] MEDS: HYDROcodone/acetaminophen 5mg/325mg tablet PO PRN ×3 (08:15→23:15)
--- NOTE | 2019-08-12 18:22 | NUR ---
Problems reprioritized. Patient report given, questions answered & plan of care reviewed with ROSEMARIE Morgan.
--- NOTE | 2019-08-12 18:48 | NUR ---
Patient in room PCU 3028. I have received report from Carol HOUSTON and had the opportunity to ask questions and assume patient care.
[2019-08-12] MEDS ORDERED: famotidine 20mg tablet PO SCH (20:00)
[2019-08-12] MEDS ORDERED: pravastatin 40mg tablet PO SCH (21:00)
--- NOTE | 2019-08-12 22:07 | NUR ---
Problems reprioritized. Patient report given, questions answered & plan of care reviewed with Kyung HOUSTON.
--- NOTE | 2019-08-12 23:41 | NUR ---
Report recd from maddy Hermosillo
[2019-08-13 02:00] VITALS: BP 112/55
[2019-08-13] MEDS: ipratropium/albuterol 3ml nebule NEB SCH ×4 (02:58→20:40)
[2019-08-13] MEDS: HYDROcodone/acetaminophen 5mg/325mg tablet PO PRN ×2 (05:34→10:07)
[2019-08-13 06:18] LABS: BASOPHILS % (AUTO) 0.4 % (0-1); EOSINOPHILS # (AUTO) 0.1 X10'3 (0-0.9); EOSINOPHILS % (AUTO) 0.9 % (0-6); HEMOGLOBIN 9.9 g/dl (12.0-16.0); LYMPHOCYTES # (AUTO) 0.8 X10'3 (1.1-4.8); LYMPHOCYTES % (AUTO) 13.1 % (21-51); MEAN CORPUSCULAR HEMOGLOBIN 31.8 PG (27.0-31.0); MEAN CORPUSCULAR HGB CONC 33.1 g/dL (33.0-36.5); MEAN CORPUSCULAR VOLUME 96.2 FL (78-98); MEAN PLATELET VOLUME 7.9 FL (7.4-10.4); MONOCYTES # (AUTO) 0.7 X10'3 (0-0.9); MONOCYTES % (AUTO) 11.5 % (2-12); NEUTROPHILS # (AUTO) 4.4 X10'3 (1.8-7.7); NEUTROPHILS % (AUTO) 74.1 % (42-75); PLATELET COUNT 357 X10'3 (140-440); RED BLOOD COUNT 3.12 X10'6 (4.20-5.60); RED CELL DISTRIBUTION WIDTH 18.4 % (11.5-14.5); WHITE BLOOD COUNT 5.9 X10'3 (4.5-11.0)
[2019-08-13 06:22] LABS: ALBUMIN 2.2 G/DL (3.4-5.0); ANION GAP 0 (8-16); BLOOD UREA NITROGEN 29 MG/DL (7-18); BUN/CREATININE RATIO 50.9 (6.6-38.0); CHLORIDE 100 MMOL/L (99-107); CREATININE 0.57 MG/DL (0.40-0.90); GLUCOSE 134 MG/DL (70-104); MAGNESIUM 1.9 MG/DL (1.5-2.4); SODIUM 137 MMOL/L (135-145); TOTAL CARBON DIOXIDE 36.9 MMOL/L (24-32); eGFR > 90 ML/MIN
--- NOTE | 2019-08-13 06:25 | NUR ---
Report given to maddy Medina. and maddy Morales.
--- NOTE | 2019-08-13 06:34 | NUR ---
Patient in room PCU 3028. I have received report from ROSEMARIE Virk and had the opportunity to ask questions and assume patient care. Patient in bed, stable at this time. Will continue to monitor.
[2019-08-13 07:07] VITALS: BP 130/55
--- NOTE | 2019-08-13 07:30 | NUR ---
Patient c/o 9/10 chest pain. Stated it was hurting for about 20 minutes. Stat EKG done per protocol, call made to Dr. Craven, new order for stat Troponin and Aspirin 325mg via Corepak x1. Natalya Ghotra NP signed off on EKG.
[2019-08-13] MEDS ORDERED: aspirin 325mg tablet CORPAK ONE (07:40)
[2019-08-13] MEDS: ESCITALOPRAM OXALATE 5 MG TABLET CORPAK SCH (07:57)
[2019-08-13] MEDS: famotidine 20mg tablet CORPAK SCH ×2 (07:58→20:07)
[2019-08-13] MEDS: amiodarone 200mg tablet CORPAK SCH ×2 (07:58→20:07)
[2019-08-13] MEDS: furosemide 40mg/4ml inj IV SCH (07:59)
[2019-08-13] MEDS: lactobacillus rhamnosus 10,000 MMU CELLS/CAPSULE CORPAK SCH ×2 (07:59→20:07)
[2019-08-13] MEDS: digoxin 125mcg (0.125mg) tablet NG SCH (07:59)
[2019-08-13] MEDS: docusate sodium 100mg/10ml UD cup NG SCH ×2 (08:00→20:07)
[2019-08-13] MEDS: enoxaparin 50mg/0.5ml (from 3ml vial) syringe SUBCUT SCH ×2 (09:14→20:08)
[2019-08-13 11:00] VITALS: BP 118/53
--- NOTE | 2019-08-13 13:32 | NUR ---
New order from Dr. Patino for [place] 7.5/325 q 4 hrs via [facility]
[2019-08-13 15:00] VITALS: BP 109/52
[2019-08-13] MEDS: HYDROcodone/acetaminophen 7.5MG/325MG per 15ml UD CUP CORPAK PRN ×2 (17:05→21:55)
[2019-08-13 18:00] VITALS: BP 116/46
--- NOTE | 2019-08-13 18:30 | NUR ---
Patient in room PCU 3028. I have received report from Carol HOUSTON and had the opportunity to ask questions and assume patient care.
--- NOTE | 2019-08-13 18:36 | NUR ---
Problems reprioritized. Patient report given, questions answered & plan of care reviewed with ROSEMARIE Asif.
[2019-08-13] MEDS: pravastatin 40mg tablet CORPAK SCH (21:52)
[2019-08-13 22:00] VITALS: BP 117/47
--- NOTE | 2019-08-14 00:07 | NUR ---
Paged RT. [id number] : Brea Collins : Pt needs a breathing tx; she is c/o SOB. Thanks!
[2019-08-14] MEDS: ondansetron/PF 4mg/2ml inj IV PRN ×2 (01:03→19:04)
[2019-08-14 02:00] VITALS: BP 126/60
[2019-08-14] MEDS: ipratropium/albuterol 3ml nebule NEB SCH ×4 (02:29→20:24)
[2019-08-14 05:46] LABS: BASOPHILS % (AUTO) 0.6 % (0-1); EOSINOPHILS # (AUTO) 0.1 X10'3 (0-0.9); EOSINOPHILS % (AUTO) 1.9 % (0-6); HEMATOCRIT 30.5 % (35.0-45.0); LYMPHOCYTES % (AUTO) 15.9 % (21-51); MEAN CORPUSCULAR HEMOGLOBIN 31.6 PG (27.0-31.0); MEAN CORPUSCULAR HGB CONC 32.8 g/dL (33.0-36.5); MEAN CORPUSCULAR VOLUME 96.4 FL (78-98); MEAN PLATELET VOLUME 7.6 FL (7.4-10.4); MONOCYTES # (AUTO) 0.7 X10'3 (0-0.9); MONOCYTES % (AUTO) 11.9 % (2-12); NEUTROPHILS # (AUTO) 4.3 X10'3 (1.8-7.7); NEUTROPHILS % (AUTO) 69.7 % (42-75); PLATELET COUNT 388 X10'3 (140-440); RED BLOOD COUNT 3.17 X10'6 (4.20-5.60); WHITE BLOOD COUNT 6.2 X10'3 (4.5-11.0)
[2019-08-14 06:30] LABS: ALBUMIN 2.3 G/DL (3.4-5.0); ANION GAP -1 (8-16); BLOOD UREA NITROGEN 28 MG/DL (7-18); BUN/CREATININE RATIO 47.5 (6.6-38.0); CALCIUM 8.7 MG/DL (8.5-10.1); CHLORIDE 98 MMOL/L (99-107); CREATININE 0.59 MG/DL (0.40-0.90); GLUCOSE 115 MG/DL (70-104); MAGNESIUM 1.8 MG/DL (1.5-2.4); POTASSIUM 4.4 MMOL/L (3.5-5.1); SODIUM 136 MMOL/L (135-145); TOTAL CARBON DIOXIDE 38.9 MMOL/L (24-32); TRIGLYCERIDES 56 MG/DL (20-135); eGFR > 90 ML/MIN
--- NOTE | 2019-08-14 06:34 | NUR ---
Problems reprioritized. Patient report given, questions answered & plan of care reviewed with Carol HOUSTON and Carmen RN.
--- NOTE | 2019-08-14 06:35 | NUR ---
Patient in room PCU 3028. I have received report from Laya HOUSTON and had the opportunity to ask questions and assume patient care. Patient in bed and stable, no needs at this time
[2019-08-14 07:12] VITALS: BP 127/51
[2019-08-14] MEDS: enoxaparin 50mg/0.5ml (from 3ml vial) syringe SUBCUT SCH (08:25)
[2019-08-14] MEDS: docusate sodium 100mg/10ml UD cup NG SCH ×2 (08:26→19:04)
[2019-08-14] MEDS: digoxin 125mcg (0.125mg) tablet NG SCH (08:26)
[2019-08-14] MEDS: famotidine 20mg tablet CORPAK SCH ×2 (08:26→19:05)
[2019-08-14] MEDS: ESCITALOPRAM OXALATE 5 MG TABLET CORPAK SCH (08:26)
[2019-08-14] MEDS: furosemide 40mg/4ml inj IV SCH (08:26)
[2019-08-14] MEDS: lactobacillus rhamnosus 10,000 MMU CELLS/CAPSULE CORPAK SCH ×2 (08:26→19:05)
[2019-08-14] MEDS: amiodarone 200mg tablet CORPAK SCH ×2 (08:26→19:05)
[2019-08-14] MEDS: HYDROcodone/acetaminophen 7.5MG/325MG per 15ml UD CUP CORPAK PRN ×3 (08:28→19:04)
[2019-08-14 11:00] VITALS: BP 159/76
--- NOTE | 2019-08-14 11:19 | NUR ---
Reassessment: Pt s/p f/u BSS this morning with ST recs NPO with alternative nutrition. Pt possibly to get a PEG for buttermilk drier operator nutrition. Home bolus TF recommendations below for if PEG placement. Pt continues with Corpak and tolerating TF at goal rate meeting nutrient needs. Per [facility]OC notes 07/28 wound VAC to right groin surgical wound was removed and f/u WOC notes 08/12 states SDTI to sacrococcygeal appears slightly reddened with no open areas. Estimated nutrient needs have been appropriately adjusted. LBM 08/12. Will continue to follow closely. Recommendations: 1) Continuous tube feeding via Corpak using Jevity 1.2 with goal rate of 55 mL/hr to provide: 1320 mL total volume/day, 1584 kcal, 73 g protein, and 1065 mL water 2) Additional 85 mL water flush q 4 hours 3) Prealbumin q /; daily weights 4) Advance to regular diet as medically indicated per ST recommendations 5) PEG for buttermilk drier operator nutrition if unable to pass BSS and to remain a full code 6) Routine bowel [facility] BOLUS TF RECS VIA PE) Bolus feed using one bottle (237 mL) Jevity 1.5 or equivalent QID to begin at 120 mL/bolus and advance by 50 mL each bolus as tolerated to goal 2) Additional 30 mL water flush before and after each bolus feed 3) Outpatient RD to titrate to goal rate and make recommendations as as needed according to patient's estimated nutrient needs Addendum: 08/14/19 at [address] Amended: Links added.
[2019-08-14 15:00] VITALS: BP 116/61
--- NOTE | 2019-08-14 15:55 | NUR ---
Paperwork for Family Leave Act for patients daughter Viviane in front of chart. Called and spoke with Dr. Craven- per him he will fill out tomorrow.
[2019-08-14 18:00] VITALS: BP 116/61
--- NOTE | 2019-08-14 18:19 | NUR ---
Problems reprioritized. Patient report given, questions answered & plan of care reviewed with Da RN.
--- NOTE | 2019-08-14 18:24 | NUR ---
[place] Documentation I have reviewed and agree with all interventions, assessments performed and documented by ROSEMARIE Morales .
--- NOTE | 2019-08-14 18:43 | NUR ---
Patient in room PCU 3028. I have received report from Heriberto HOUSTON and had the opportunity to ask questions and assume patient care.
[2019-08-14] MEDS: pravastatin 40mg tablet CORPAK SCH (21:57)
[2019-08-14 22:00] VITALS: BP 121/63
[2019-08-14] MEDS ORDERED: diatr meglu/diatrizoate 30ml oral sol.-(3 dose) bottle NG ONE ×2 (22:00)
[2019-08-15] VITALS (20 sets, daily range): BP systolic 84–151; BP diastolic 43–65
[2019-08-15] MEDS: HYDROcodone/acetaminophen 7.5MG/325MG per 15ml UD CUP CORPAK PRN ×3 (00:09→12:59)
[2019-08-15] MEDS: normal saline 1000ml 1,000 ML IV SCH ×2 (01:34→21:00)
[2019-08-15] MEDS: ipratropium/albuterol 3ml nebule NEB SCH ×4 (03:12→20:08)
[2019-08-15 05:06] LABS: BASOPHILS % (AUTO) 0.5 % (0-1); EOSINOPHILS # (AUTO) 0.1 X10'3 (0-0.9); EOSINOPHILS % (AUTO) 1.5 % (0-6); HEMATOCRIT 28.9 % (35.0-45.0); HEMOGLOBIN 9.5 g/dl (12.0-16.0); LYMPHOCYTES # (AUTO) 0.7 X10'3 (1.1-4.8); LYMPHOCYTES % (AUTO) 9.9 % (21-51); MEAN CORPUSCULAR HEMOGLOBIN 31.7 PG (27.0-31.0); MEAN CORPUSCULAR HGB CONC 32.7 g/dL (33.0-36.5); MEAN CORPUSCULAR VOLUME 96.8 FL (78-98); MEAN PLATELET VOLUME 7.2 FL (7.4-10.4); MONOCYTES # (AUTO) 0.7 X10'3 (0-0.9); MONOCYTES % (AUTO) 9.6 % (2-12); NEUTROPHILS # (AUTO) 5.3 X10'3 (1.8-7.7); NEUTROPHILS % (AUTO) 78.5 % (42-75); PLATELET COUNT 344 X10'3 (140-440); RED BLOOD COUNT 2.99 X10'6 (4.20-5.60); RED CELL DISTRIBUTION WIDTH 17.7 % (11.5-14.5); WHITE BLOOD COUNT 6.8 X10'3 (4.5-11.0)
[2019-08-15 05:14] LABS: PARTIAL THROMBOPLASTIN TIME 28 SECONDS (22-32)
[2019-08-15 05:30] LABS: ALANINE AMINOTRANSFERASE 34 U/L (12-78); ALBUMIN 2.2 G/DL (3.4-5.0); ALBUMIN/GLOBULIN RATIO 0.6 (1.1-1.5); ALKALINE PHOSPHATASE 76 IU/L (46-116); ANION GAP -5 (8-16); ASPARTATE AMINO TRANSFERASE 23 U/L (10-37); BILIRUBIN,TOTAL 0.3 MG/DL (0.1-1.0); BLOOD UREA NITROGEN 22 MG/DL (7-18); BUN/CREATININE RATIO 33.8 (6.6-38.0); CALCIUM 8.5 MG/DL (8.5-10.1); CHLORIDE 100 MMOL/L (99-107); CREATININE 0.65 MG/DL (0.40-0.90); GLUCOSE 101 MG/DL (70-104); MAGNESIUM 1.7 MG/DL (1.5-2.4); PHOSPHORUS 3.1 MG/DL (2.3-4.5); POTASSIUM 4.1 MMOL/L (3.5-5.1); SODIUM 136 MMOL/L (135-145); TOTAL PROTEIN 6.2 G/DL (6.4-8.2); eGFR 87 ML/MIN
[2019-08-15 05:35] LABS: TOTAL CARBON DIOXIDE 41.2 MMOL/L (24-32)
--- NOTE | 2019-08-15 05:39 | NUR ---
Spoke with Mariaa PORTER BAGGAGE, aware of patients 41.2 Co2, and K 4.1 and Mag 1.7 level. Provider ordered 2gm Mag bag.
[2019-08-15] MEDS ORDERED: magnesium 2GM in 50ml NS 50 ML IV ONE (05:40)
--- NOTE | 2019-08-15 06:18 | NUR ---
Patient in room PCU 3028. I have received report from ROSEMARIE Roberson and had the opportunity to ask questions and assume patient care. Patient currently resting in bed, bed locked and low, call light in reach, no acute distress, will continue to monitor.
--- NOTE | 2019-08-15 06:18 | NUR ---
Problems reprioritized. Patient report given, questions answered & plan of care reviewed with Gita HOUSTON.
[2019-08-15] MEDS: lactobacillus rhamnosus 10,000 MMU CELLS/CAPSULE CORPAK SCH ×2 (08:09→19:34)
[2019-08-15] MEDS: docusate sodium 100mg/10ml UD cup NG SCH ×2 (08:09→19:34)
[2019-08-15] MEDS: amiodarone 200mg tablet CORPAK SCH ×2 (08:10→19:34)
[2019-08-15] MEDS: ESCITALOPRAM OXALATE 5 MG TABLET CORPAK SCH (08:10)
[2019-08-15] MEDS: furosemide 40mg/4ml inj IV SCH (08:11)
[2019-08-15] MEDS: digoxin 125mcg (0.125mg) tablet NG SCH (08:11)
[2019-08-15] MEDS: famotidine 20mg tablet CORPAK SCH ×2 (08:11→19:34)
[2019-08-15] MEDS ORDERED: glucagon, human recombinant 1mg kit ONE (13:57)
[2019-08-15] MEDS ORDERED: midazolam 2 mg/2 ml injection ONE (14:03)
[2019-08-15] MEDS ORDERED: fentaNYL/PF 50MCG/1 ML 2ML syringe ONE (14:04)
--- NOTE | 2019-08-15 14:10 | NUR ---
Patient taken off unit for procedure
[2019-08-15] MEDS ORDERED: LIDOcaine 1%/PF 5ML 10 MG/ML VIAL ONE (14:38)
[2019-08-15] MEDS ORDERED: zinc oxide ointment 30gm tube TP PRN (15:20)
--- NOTE | 2019-08-15 15:52 | NUR ---
Tube feeding consult. Patient is s/p PEG placement. Per MD nursing order do not use tube until 12 hours after placement. When OK by MD to begin using PEG recommendations for feedings are below. Indication for PEG and [facility] nutrition d/t failed swallow studies and Speech Therapy recommendation for alternative nutrition. Prior to PEG patient tolerating Corpak and tube feedings at goal rate meeting nutrient needs. Per [facility]OC notes 07/28 wound VAC to right groin surgical wound was removed and f/u WOC notes 08/12 states SDTI to sacrococcygeal appears slightly reddened with no open areas. Estimated nutrient needs have been appropriately adjusted. Per Case Management notes the patient's daughter is familiar with administrating tube feedings. Will continue to follow closely. Recommendations: 1) When OK to use PEG 12 hours after placement per MD recommend bolus feedings four times daily using Jevity 1.2; recommend to start with 120 mL/bolus and advance as tolerated by 50 mL each bolus to goal of 295 ml bolus feeding. This will provide daily total tube feeding volume of 1180 ml, 1416 calories, 65 grams protein, and 952 ml water. 2) Provide additional 60 mL water flush before and after each bolus feed for a total of 120 ml with each bolus and total of 480 ml additional water daily. 3) Prealbumin q /TH; daily weights 4) Routine bowel [facility] BOLUS TUBE FEEDING RECS FOR PE) Bolus feed using one bottle (237 mL) Jevity 1.5 or equivalent QID to begin at 120 mL/bolus and advance by 50 mL each bolus as tolerated to goal 2) Additional 30 mL water flush before and after each bolus feed 3) Outpatient RD to titrate to goal rate and make recommendations as as needed according to patient's estimated nutrient needs Addendum: 08/15/19 at [address] Amended: Links added.
--- NOTE | 2019-08-15 18:19 | NUR ---
Problems reprioritized. Patient report given, questions answered & plan of care reviewed with ROSEMARIE Colby.
--- NOTE | 2019-08-15 18:30 | NUR ---
Patient in room PCU 3028. I have received report from Gita Klein RN and had the opportunity to ask questions and assume patient care.
[2019-08-15] MEDS: pravastatin 40mg tablet CORPAK SCH (19:34)
--- NOTE | 2019-08-15 19:35 | NUR ---
UNABLE TO GIVE NIGHT MEDS peg tube placed today, per orders unable to use until 0300 08/16/19. no access at this time, NP. Heller notified.
[2019-08-15] MEDS: morphine 4 MG/ML inj SYRINge IV PRN (20:48)
[2019-08-16] MEDS: morphine 4 MG/ML inj SYRINge IV PRN (01:44)
[2019-08-16 02:00] VITALS: BP 116/58
[2019-08-16] MEDS: ipratropium/albuterol 3ml nebule NEB SCH ×4 (02:08→21:02)
[2019-08-16 05:21] LABS: BASOPHILS % (AUTO) 0.4 % (0-1); EOSINOPHILS # (AUTO) 0.1 X10'3 (0-0.9); EOSINOPHILS % (AUTO) 1.3 % (0-6); HEMATOCRIT 29.6 % (35.0-45.0); HEMOGLOBIN 9.8 g/dl (12.0-16.0); LYMPHOCYTES # (AUTO) 0.5 X10'3 (1.1-4.8); LYMPHOCYTES % (AUTO) 7.4 % (21-51); MEAN CORPUSCULAR HEMOGLOBIN 32.7 PG (27.0-31.0); MEAN CORPUSCULAR HGB CONC 33.2 g/dL (33.0-36.5); MEAN CORPUSCULAR VOLUME 98.3 FL (78-98); MEAN PLATELET VOLUME 7.4 FL (7.4-10.4); MONOCYTES # (AUTO) 0.5 X10'3 (0-0.9); MONOCYTES % (AUTO) 7.4 % (2-12); NEUTROPHILS # (AUTO) 5.8 X10'3 (1.8-7.7); NEUTROPHILS % (AUTO) 83.5 % (42-75); PLATELET COUNT 333 X10'3 (140-440); RED BLOOD COUNT 3.01 X10'6 (4.20-5.60)
[2019-08-16 05:24] LABS: PARTIAL THROMBOPLASTIN TIME 27 SECONDS (22-32)
[2019-08-16 05:36] LABS: ALANINE AMINOTRANSFERASE 31 U/L (12-78); ALBUMIN 2.1 G/DL (3.4-5.0); ALBUMIN/GLOBULIN RATIO 0.5 (1.1-1.5); ALKALINE PHOSPHATASE 71 IU/L (46-116); ANION GAP 0 (8-16); ASPARTATE AMINO TRANSFERASE 22 U/L (10-37); BILIRUBIN,TOTAL 0.4 MG/DL (0.1-1.0); BLOOD UREA NITROGEN 20 MG/DL (7-18); BUN/CREATININE RATIO 33.3 (6.6-38.0); CALCIUM 8.6 MG/DL (8.5-10.1); CHLORIDE 103 MMOL/L (99-107); GLUCOSE 81 MG/DL (70-104); PHOSPHORUS 2.9 MG/DL (2.3-4.5); POTASSIUM 3.7 MMOL/L (3.5-5.1); PREALBUMIN 17.2 MG/DL (19-36); SODIUM 141 MMOL/L (135-145); TOTAL CARBON DIOXIDE 37.7 MMOL/L (24-32); TOTAL PROTEIN 6.2 G/DL (6.4-8.2); eGFR > 90 ML/MIN
[2019-08-16 06:00] VITALS: BP 132/54
--- NOTE | 2019-08-16 06:05 | NUR ---
Problems reprioritized. Patient report given, questions answered & plan of care reviewed with Gita Klein RN.
--- NOTE | 2019-08-16 06:26 | NUR ---
Patient in room PCU 3028. I have received report from Artis RN and had the opportunity to ask questions and assume patient care.
[2019-08-16] MEDS ORDERED: acetaminophen 325mg/10.15ml oral unit dose solution PEG PRN ×2 (07:37)
[2019-08-16] MEDS ORDERED: POTASSIUM BICARB 20meq eff tab 20 MEQ TABLET.EFF PEG PRN (07:40)
[2019-08-16] MEDS: docusate sodium 100mg/10ml UD cup PEG SCH ×2 (08:00→20:00)
[2019-08-16] MEDS: lactobacillus rhamnosus 10,000 MMU CELLS/CAPSULE PEG SCH ×2 (08:00→20:39)
[2019-08-16] MEDS: digoxin 125mcg (0.125mg) tablet PEG SCH (08:00)
[2019-08-16] MEDS: furosemide 40mg/4ml inj IV SCH (08:00)
[2019-08-16] MEDS: ESCITALOPRAM OXALATE 5 MG TABLET PEG SCH (08:00)
[2019-08-16] MEDS: famotidine 20mg tablet PEG SCH ×2 (08:00→20:39)
[2019-08-16] MEDS: amiodarone 200mg tablet PEG SCH ×2 (08:00→20:38)
[2019-08-16] MEDS ORDERED: iohexol 300 MG/1 ML 50ml polymer ONE (08:40)
[2019-08-16] MEDS: HYDROcodone/acetaminophen 7.5MG/325MG per 15ml UD CUP PEG PRN ×3 (09:39→21:22)
--- NOTE | 2019-08-16 09:41 | NUR ---
medications given at scheduled time, failed to save on emar.
--- NOTE | 2019-08-16 09:44 | NUR ---
co-signing that medications, including [place] liquid were scanned and given by niru Nixon at 0800 but failed to save in the eMAR, when this was noted we manually administered the medications in the eMAR at 0930 and made a note in the norco administration that it was actually given at 0800.
[2019-08-16 11:00] VITALS: BP 138/55
[2019-08-16 15:00] VITALS: BP 137/88
--- NOTE | 2019-08-16 15:45 | NUR ---
Spoke with Dr. Sepulveda regarding patient's surgical incisions still having dave from her surgery at the end of june. Asked if he would like us to remove dave. He stated he will assess her incisions tomorrow.
--- NOTE | 2019-08-16 16:14 | NUR ---
Reassessment: Per MD notes pt didn't tolerate first bolus feed this morning. D/w RN who reports pt tolerated the first water flush and about 1/2 of the bolus feed before she expressed discomfort, consequently full bolus was not provided. D/w RN alternative feeding options, such as gravity or pump assisted bolus feeds over the course of one hour rather than syringe method. RN reports she will trial gravity feeds. Pt documented to have received 120 mL bolus feed this afternoon with no residuals. LBM 08/14. Will continue to follow closely. Recommendations: 1) Bolus feedings four times daily using Jevity 1.2; recommend to start with 120 mL/bolus and advance as tolerated by 50 mL each bolus to goal of 295 ml bolus feeding. This will provide daily total tube feeding volume of 1180 ml, 1416 calories, 65 grams protein, and 952 ml water. 2) Provide additional 60 mL water flush before and after each bolus feed for a total of 120 ml with each bolus and total of 480 ml additional water daily. 3) Prealbumin q /; daily weights 4) Routine bowel group home BOLUS TUBE FEEDING RECS FOR PE) Bolus feed using one bottle (237 mL) Jevity 1.5 or equivalent QID to begin at 120 mL/bolus and advance by 50 mL each bolus as tolerated to goal 2) Additional 30 mL water flush before and after each bolus feed 3) Outpatient RD to titrate to goal rate and make recommendations as as needed according to patient's estimated nutrient needs Addendum: 08/16/19 at [address] Amended: Links added.
--- NOTE | 2019-08-16 17:56 | NUR ---
Orientee documentation: I have reviewed and agree with all interventions, assessments performed and documented by Chloe Nixon RN.
[2019-08-16 18:00] VITALS: BP 116/43
--- NOTE | 2019-08-16 18:27 | NUR ---
Problems reprioritized. Patient report given, questions answered & plan of care reviewed with Neno HOUSTON.
--- NOTE | 2019-08-16 18:44 | NUR ---
Patient in room PCU 3028. I have received report from Gita HOUSTON and had the opportunity to ask questions and assume patient care.
[2019-08-16] MEDS ORDERED: enoxaparin 50mg/0.5ml (from 3ml vial) syringe SUBCUT ONE (20:00)
[2019-08-16] MEDS: pravastatin 40mg tablet PEG SCH (20:39)
[2019-08-16 22:00] VITALS: BP 138/49
[2019-08-16] MEDS ORDERED: morphine 4 MG/ML inj SYRINge IV ONE (23:35)
[2019-08-17] MEDS: HYDROcodone/acetaminophen 7.5MG/325MG per 15ml UD CUP PEG PRN ×4 (01:58→19:34)
[2019-08-17 02:00] VITALS: BP 105/37
[2019-08-17] MEDS: ipratropium/albuterol 3ml nebule NEB SCH ×4 (04:07→20:13)
[2019-08-17 05:17] LABS: PARTIAL THROMBOPLASTIN TIME 34 SECONDS (22-32)
[2019-08-17 05:20] LABS: ALANINE AMINOTRANSFERASE 24 U/L (12-78); ALBUMIN/GLOBULIN RATIO 0.5 (1.1-1.5); ALKALINE PHOSPHATASE 68 IU/L (46-116); ANION GAP 1 (8-16); ASPARTATE AMINO TRANSFERASE 18 U/L (10-37); BILIRUBIN,TOTAL 0.4 MG/DL (0.1-1.0); BLOOD UREA NITROGEN 26 MG/DL (7-18); BUN/CREATININE RATIO 38.8 (6.6-38.0); CALCIUM 8.6 MG/DL (8.5-10.1); CHLORIDE 102 MMOL/L (99-107); CREATININE 0.67 MG/DL (0.40-0.90); GLUCOSE 132 MG/DL (70-104); MAGNESIUM 1.9 MG/DL (1.5-2.4); PHOSPHORUS 2.6 MG/DL (2.3-4.5); POTASSIUM 3.4 MMOL/L (3.5-5.1); SODIUM 142 MMOL/L (135-145); TOTAL CARBON DIOXIDE 39.1 MMOL/L (24-32); TOTAL PROTEIN 5.9 G/DL (6.4-8.2); eGFR 84 ML/MIN
[2019-08-17 05:30] LABS: BASOPHILS # (AUTO) 0.1 X10'3 (0-0.2); BASOPHILS % (AUTO) 0.9 % (0-1); EOSINOPHILS # (AUTO) 0.3 X10'3 (0-0.9); EOSINOPHILS % (AUTO) 3.1 % (0-6); HEMATOCRIT 29.5 % (35.0-45.0); HEMOGLOBIN 9.7 g/dl (12.0-16.0); LYMPHOCYTES # (AUTO) 0.5 X10'3 (1.1-4.8); LYMPHOCYTES % (AUTO) 5.2 % (21-51); MEAN CORPUSCULAR HEMOGLOBIN 32.4 PG (27.0-31.0); MEAN CORPUSCULAR HGB CONC 32.8 g/dL (33.0-36.5); MEAN CORPUSCULAR VOLUME 98.6 FL (78-98); MEAN PLATELET VOLUME 7.5 FL (7.4-10.4); MONOCYTES # (AUTO) 0.5 X10'3 (0-0.9); MONOCYTES % (AUTO) 5.3 % (2-12); NEUTROPHILS # (AUTO) 8.3 X10'3 (1.8-7.7); NEUTROPHILS % (AUTO) 85.5 % (42-75); PLATELET COUNT 301 X10'3 (140-440); RED BLOOD COUNT 2.99 X10'6 (4.20-5.60); RED CELL DISTRIBUTION WIDTH 17.8 % (11.5-14.5); WHITE BLOOD COUNT 9.7 X10'3 (4.5-11.0)
[2019-08-17] MEDS: ondansetron/PF 4mg/2ml inj IV PRN (05:56)
[2019-08-17 06:00] VITALS: BP 129/54
--- NOTE | 2019-08-17 06:29 | NUR ---
Problems reprioritized. Patient report given, questions answered & plan of care reviewed with Gita HOUSTON.
--- NOTE | 2019-08-17 06:34 | NUR ---
Patient in room PCU 3028. I have received report from ROSEMARIE Lazcano and had the opportunity to ask questions and assume patient care. Patient currently resting in bed, having some pain, will get medications as ordered, no acute distress, will continue to monitor.
[2019-08-17] MEDS: POTASSIUM BICARB 20meq eff tab 20 MEQ TABLET.EFF PEG PRN ×2 (06:48→16:23)
[2019-08-17] MEDS: docusate sodium 100mg/10ml UD cup PEG SCH (08:00)
[2019-08-17] MEDS: ESCITALOPRAM OXALATE 5 MG TABLET PEG SCH (08:12)
[2019-08-17] MEDS: furosemide 40mg/4ml inj IV SCH (08:12)
[2019-08-17] MEDS: amiodarone 200mg tablet PEG SCH ×2 (08:12→19:33)
[2019-08-17] MEDS: lactobacillus rhamnosus 10,000 MMU CELLS/CAPSULE PEG SCH ×2 (08:13→19:33)
[2019-08-17] MEDS: famotidine 20mg tablet PEG SCH ×2 (08:13→19:33)
[2019-08-17] MEDS: digoxin 125mcg (0.125mg) tablet PEG SCH (08:13)
[2019-08-17] MEDS ORDERED: HYDROcodone/acetaminophen 7.5MG/325MG per 15ml UD CUP PO ONE (08:40)
[2019-08-17 11:00] VITALS: BP 124/42
[2019-08-17] MEDS ORDERED: loperamide 2mg capsule PO PRN (11:25)
[2019-08-17] MEDS ORDERED: loperamide 2mg capsule PO ONE (11:25)
[2019-08-17] MEDS ORDERED: OLANZapine 2.5MG tablet PO SCH (11:30)
--- NOTE | 2019-08-17 11:37 | NUR ---
TF consult re: "tube feeding formula, skin breakdown". D/w RN who reports pt has recently been having copious amounts of stool. Per RN rectal tube was put in place last night. Noted that pt documented with 7 BMs 08/15 and 10 the day prior. Pt receiving routine probiotic and PRN Imodium was just added to med list today. Will monitor need for change in formula. Per [facility] notes patient's sacrococcygeal SDTI is reddened with no openings. Pt receiving additional protein with TF to promote skin integrity and wound healing. Per RN this morning bolus TF is at goal rate using a pump to run for one hour each bolus. RN reports pt continues to c/o abdominal pain and N/V, although pt without emesis at this time. Pt receiving pain medications as well as PRN Zofran. Will continue to follow closely. Addendum: 08/17/19 at [address] Amended: Links added.
[2019-08-17 12:03] LABS: CLARITY,URINE CLOUDY (Clear); COLOR,URINE YELLOW (Yellow); GLUCOSE, URINE NEGATIVE (Neg); KETONES,URINE NEGATIVE (Neg); LEUKOCYTE ESTERASE ,URINE LARGE (Neg); NITRITES, URINE POSITIVE (Neg); OCCULT BLOOD,URINE LARGE (Neg); PH,URINE 5.5 (4.8-8.0); PROTEIN,URINE NEGATIVE (Neg); UROBILINOGEN,URINE 0.2 E.U/dL (0.2-1.0)
[2019-08-17 12:11] LABS: UA COLLECTION TYPE STRAIGHT CATH
[2019-08-17 12:12] LABS: BACTERIA,URINE 3+ /HPF (Neg); MUCUS STRANDS FEW /LPF (Neg); SQUAMOUS EPITHELIAL CELL,UR FEW /LPF (FEW); WBC,URINE 50-100 /HPF (0-4)
[2019-08-17 15:00] VITALS: BP 110/32
[2019-08-17] MEDS: CefTRIAXone/D5W-Rocephin 1gm 50 ML IV SCH (17:37)
--- NOTE | 2019-08-17 18:17 | NUR ---
Problems reprioritized. Patient report given, questions answered & plan of care reviewed with ROSEMARIE Lundberg.
--- NOTE | 2019-08-17 18:20 | NUR ---
Patient in room PCU 3028. I have received report from Gita HOUSTON and had the opportunity to ask questions and assume patient care.
[2019-08-17] MEDS: pravastatin 40mg tablet PEG SCH (20:51)
[2019-08-17 22:00] VITALS: BP 149/81
[2019-08-18] VITALS (7 sets, daily range): BP systolic 117–144; BP diastolic 40–78
[2019-08-18] MEDS: ipratropium/albuterol 3ml nebule NEB SCH ×4 (02:26→20:07)
[2019-08-18] MEDS: HYDROcodone/acetaminophen 7.5MG/325MG per 15ml UD CUP PEG PRN ×3 (02:40→17:11)
--- NOTE | 2019-08-18 03:39 | NUR ---
Bladder scan post incontinent episode, 82 ml.
[2019-08-18 05:26] LABS: BASOPHILS % (AUTO) 0.3 % (0-1); EOSINOPHILS # (AUTO) 0.1 X10'3 (0-0.9); EOSINOPHILS % (AUTO) 1.3 % (0-6); HEMATOCRIT 29.5 % (35.0-45.0); HEMOGLOBIN 9.3 g/dl (12.0-16.0); LYMPHOCYTES # (AUTO) 0.4 X10'3 (1.1-4.8); LYMPHOCYTES % (AUTO) 3.1 % (21-51); MEAN CORPUSCULAR HEMOGLOBIN 30.9 PG (27.0-31.0); MEAN CORPUSCULAR HGB CONC 31.6 g/dL (33.0-36.5); MEAN CORPUSCULAR VOLUME 97.7 FL (78-98); MEAN PLATELET VOLUME 7.2 FL (7.4-10.4); MONOCYTES # (AUTO) 0.6 X10'3 (0-0.9); MONOCYTES % (AUTO) 5.3 % (2-12); NEUTROPHILS # (AUTO) 10.5 X10'3 (1.8-7.7); PLATELET COUNT 301 X10'3 (140-440); RED BLOOD COUNT 3.03 X10'6 (4.20-5.60); RED CELL DISTRIBUTION WIDTH 18.6 % (11.5-14.5); WHITE BLOOD COUNT 11.7 X10'3 (4.5-11.0)
[2019-08-18 05:35] LABS: PARTIAL THROMBOPLASTIN TIME 25 SECONDS (22-32)
[2019-08-18 05:38] LABS: ALANINE AMINOTRANSFERASE 21 U/L (12-78); ALBUMIN/GLOBULIN RATIO 0.5 (1.1-1.5); ALKALINE PHOSPHATASE 67 IU/L (46-116); ANION GAP -1 (8-16); ASPARTATE AMINO TRANSFERASE 16 U/L (10-37); BILIRUBIN,TOTAL 0.3 MG/DL (0.1-1.0); BLOOD UREA NITROGEN 26 MG/DL (7-18); BUN/CREATININE RATIO 41.9 (6.6-38.0); CALCIUM 8.4 MG/DL (8.5-10.1); CHLORIDE 101 MMOL/L (99-107); CREATININE 0.62 MG/DL (0.40-0.90); GLUCOSE 196 MG/DL (70-104); MAGNESIUM 1.7 MG/DL (1.5-2.4); POTASSIUM 4.2 MMOL/L (3.5-5.1); SODIUM 140 MMOL/L (135-145); TOTAL PROTEIN 6.1 G/DL (6.4-8.2); eGFR > 90 ML/MIN
[2019-08-18 05:41] LABS: TOTAL CARBON DIOXIDE 40.4 MMOL/L (24-32)
[2019-08-18] MEDS ORDERED: morphine 4 MG/ML inj SYRINge IV ONE (05:50)
--- NOTE | 2019-08-18 06:45 | NUR ---
Problems reprioritized. Patient report given, questions answered & plan of care reviewed with Taryn HOUSTON.
--- NOTE | 2019-08-18 06:46 | NUR ---
Patient in room PCU 3028. I have received report from Tamika HOUSTON and had the opportunity to ask questions and assume patient care with Gilda HOUSTON.
--- NOTE | 2019-08-18 08:39 | NUR ---
Patient refused Vanco but allowed partial assessment which is improvement from prior day.
--- NOTE | 2019-08-18 08:42 | NUR ---
data entry specialist error, documented on wrong patient.
[2019-08-18] MEDS: famotidine 20mg tablet PEG SCH ×3 (08:53→20:32)
[2019-08-18] MEDS: OLANZapine 2.5MG tablet PEG SCH ×2 (08:53→09:18)
[2019-08-18] MEDS: CefTRIAXone/D5W-Rocephin 1gm 50 ML IV SCH (08:53)
[2019-08-18] MEDS: ESCITALOPRAM OXALATE 5 MG TABLET PEG SCH ×2 (08:54→09:17)
[2019-08-18] MEDS: amiodarone 200mg tablet PEG SCH ×3 (08:54→20:32)
[2019-08-18] MEDS: lactobacillus rhamnosus 10,000 MMU CELLS/CAPSULE PEG SCH ×3 (08:54→20:32)
[2019-08-18] MEDS: digoxin 125mcg (0.125mg) tablet PEG SCH ×2 (08:56→09:18)
[2019-08-18] MEDS: furosemide 40mg/4ml inj IV SCH (08:59)
--- NOTE | 2019-08-18 09:30 | NUR ---
Morning meds were spilled prior to administration. Morning medications pulled twice and Pharmacy notified.
--- NOTE | 2019-08-18 10:30 | NUR ---
Arvin. paged per the request of Meme Jonas to f/u with patient/family regarding plan of care/discharge plans and patients wishes.
--- NOTE | 2019-08-18 17:28 | NUR ---
Meme Jonas (NIRMAL) and senior logistics manager had discussion about code status and her plans to discharge. Pt. stated she is excited to discharge home and has been saying she wanted to because she doesn't want to be here anymore. Pt. has been repositioned q2 hrs with extremities elevated on pillows. Frequent oral care provided. Pt. has thick yellow crust to tongue/upper mouth. Lip balm administered frequently. Pt is cachetic looking. Per Meme Jonas (NIRMAL) she has been failure to thrive, patient states she does not want to be in the hospital anymore. Patient has remained A/O X4 throughout the shift. Patient was medicated for pain X2 with effective results. Encouraged use of I.S. and flutter valve which she was cooperative with. Will continue to monitor closely.
--- NOTE | 2019-08-18 18:41 | NUR ---
Patient in room PCU 3028B. I have received report from ROSEMARIE Vo and had the opportunity to ask questions and assume patient care. Patient asleep for bedside report and saline locked at this time. Will continue to monitor closely.
--- NOTE | 2019-08-18 18:41 | NUR ---
Problems reprioritized. Patient report given, questions answered & plan of care reviewed with Yair HOUSTON.
[2019-08-18] MEDS: pravastatin 40mg tablet PEG SCH (20:32)
[2019-08-19] MEDS: HYDROcodone/acetaminophen 7.5MG/325MG per 15ml UD CUP PEG PRN ×2 (00:10→16:19)
[2019-08-19] MEDS: ipratropium/albuterol 3ml nebule NEB SCH ×4 (02:17→19:26)
[2019-08-19 03:00] VITALS: BP 120/51
[2019-08-19 05:39] LABS: ALANINE AMINOTRANSFERASE 20 U/L (12-78); ALBUMIN 1.9 G/DL (3.4-5.0); ALBUMIN/GLOBULIN RATIO 0.5 (1.1-1.5); ALKALINE PHOSPHATASE 66 IU/L (46-116); ANION GAP -3 (8-16); ASPARTATE AMINO TRANSFERASE 18 U/L (10-37); BILIRUBIN,TOTAL 0.3 MG/DL (0.1-1.0); BLOOD UREA NITROGEN 27 MG/DL (7-18); CALCIUM 8.8 MG/DL (8.5-10.1); CHLORIDE 101 MMOL/L (99-107); CREATININE 0.54 MG/DL (0.40-0.90); GLUCOSE 97 MG/DL (70-104); MAGNESIUM 1.9 MG/DL (1.5-2.4); PHOSPHORUS 3.1 MG/DL (2.3-4.5); POTASSIUM 4.1 MMOL/L (3.5-5.1); PREALBUMIN 12.5 MG/DL (19-36); SODIUM 140 MMOL/L (135-145); TOTAL PROTEIN 6.1 G/DL (6.4-8.2); eGFR > 90 ML/MIN
[2019-08-19 05:53] LABS: TOTAL CARBON DIOXIDE 41.9 MMOL/L (24-32)
[2019-08-19 05:58] LABS: BASOPHILS % (AUTO) 0.3 % (0-1); EOSINOPHILS # (AUTO) 0.3 X10'3 (0-0.9); HEMATOCRIT 28.4 % (35.0-45.0); HEMOGLOBIN 9.3 g/dl (12.0-16.0); LYMPHOCYTES # (AUTO) 1.1 X10'3 (1.1-4.8); MEAN CORPUSCULAR HEMOGLOBIN 31.9 PG (27.0-31.0); MEAN CORPUSCULAR HGB CONC 32.8 g/dL (33.0-36.5); MEAN CORPUSCULAR VOLUME 97.3 FL (78-98); MEAN PLATELET VOLUME 7.5 FL (7.4-10.4); MONOCYTES # (AUTO) 0.8 X10'3 (0-0.9); MONOCYTES % (AUTO) 7.6 % (2-12); NEUTROPHILS # (AUTO) 7.9 X10'3 (1.8-7.7); NEUTROPHILS % (AUTO) 78.1 % (42-75); PLATELET COUNT 294 X10'3 (140-440); RED BLOOD COUNT 2.92 X10'6 (4.20-5.60); RED CELL DISTRIBUTION WIDTH 17.6 % (11.5-14.5); WHITE BLOOD COUNT 10.2 X10'3 (4.5-11.0)
--- NOTE | 2019-08-19 05:59 | NUR ---
CRITICAL CO2 OF 41.9. VALUE INCREASED FROM 40.4 ON 08/17. FCO NOTIFIED AND NO CHANGE IN ORDERS AT THIS TIME.
--- NOTE | 2019-08-19 06:21 | NUR ---
Problems reprioritized. Patient report given, questions answered & plan of care reviewed with ROSEMARIE RUSSELL AND ROSEMARIE HESTER.
[2019-08-19 06:48] LABS: PARTIAL THROMBOPLASTIN TIME 29 SECONDS (22-32)
[2019-08-19 07:00] VITALS: BP 102/46
--- NOTE | 2019-08-19 07:18 | NUR ---
Patient in room PCU 3028. I have received report from Yair HOUSTON and had the opportunity to ask questions and assume patient care. Repositioned patient and she is resting comfortably.
[2019-08-19] MEDS: OLANZapine 2.5MG tablet PEG SCH (07:44)
[2019-08-19] MEDS: furosemide 40mg/4ml inj IV SCH (07:44)
[2019-08-19] MEDS: ESCITALOPRAM OXALATE 5 MG TABLET PEG SCH (07:44)
[2019-08-19] MEDS: CefTRIAXone/D5W-Rocephin 1gm 50 ML IV SCH (07:44)
[2019-08-19] MEDS: lactobacillus rhamnosus 10,000 MMU CELLS/CAPSULE PEG SCH ×2 (07:45→20:31)
[2019-08-19] MEDS: amiodarone 200mg tablet PEG SCH ×2 (07:47→20:31)
[2019-08-19] MEDS: digoxin 125mcg (0.125mg) tablet PEG SCH (07:47)
[2019-08-19] MEDS: famotidine 20mg tablet PEG SCH ×2 (07:47→20:31)
[2019-08-19 11:00] VITALS: BP 112/52
[2019-08-19 11:36] LABS: ABG BASE EXCESS 12.2 mmol/L (-2.0-3.0); ABG HCO3 37.4 mmol/L (22.0-26.0); ABG OXYGEN SATURATION 95.8 % (95-98); ABG PH (T) 7.475 (7.350-7.450); ABG PO2 (T) 78.4 mmHg (83-108); FCOHb 0.4 % (0.5-1.5); FLOW 2 L/min; FO2Hb 95.4 % (94-100); TOTAL HEMOGLOBIN 10.4 G/dl (12.0-16.0)
[2019-08-19 12:01] LABS: CLARITY,URINE TURBID (Clear); COLOR,URINE STRAW (Yellow); GLUCOSE, URINE NEGATIVE (Neg); KETONES,URINE NEGATIVE (Neg); LEUKOCYTE ESTERASE ,URINE LARGE (Neg); NITRITES, URINE NEGATIVE (Neg); OCCULT BLOOD,URINE MODERATE (Neg); PROTEIN,URINE NEGATIVE (Neg)
[2019-08-19 12:11] LABS: UA COLLECTION TYPE STRAIGHT CATH
[2019-08-19 12:16] LABS: HYALINE CASTS 0-3 /LPF (NEGATIVE); MUCUS STRANDS FEW /LPF (Neg); SQUAMOUS EPITHELIAL CELL,UR FEW /LPF (FEW); TRANSITIONAL EPI CELLS,URINE FEW /HPF
[2019-08-19 12:17] LABS: BACTERIA,URINE FEW /HPF (Neg); RENAL CELLS, URINE FEW /HPF; WBC,URINE TNTC /HPF (0-4)
--- NOTE | 2019-08-19 12:39 | NUR ---
Pt. c/o burning pain and lower ABD pain with urination. Reviewed recent [employer] with Dr. Patino and current complaints. New orders to obtain UA with [employer] STORE MANAGER and obtain ABG's r/t critical c02. Dr. Patino notified of UA results - Received telephone order to stop current ABT and start Zozyn 3.375 gm IV q 6 hrs. She will not discharge today. Pt's daughter Martha notified and in agreement. Pt. also notified.
--- NOTE | 2019-08-19 13:32 | NUR ---
CM TC: Pt daughter would like to feed pt continuously at home using feeding pump; pending insurance coverage to see if pump can be covered per CM. Continuous TF home recs below if insurance able to cover. Pt bolus feeding documentation not consistent and volume administration not clear via EMR. RN reports pt is currently and has been receiving bolus feeds at goal and tolerating GRV WNL. Pt new DX UTI per RN no discharge today. LBM 08/17. Will continue to monitor. Recommendations: 1) Bolus feedings four times daily using Jevity 1.2; recommend to start with 120 mL/bolus and advance as tolerated by 50 mL each bolus to goal of 295 ml bolus feeding. This will provide daily total tube feeding volume of 1180 ml, 1416 calories, 65 grams protein, and 952 ml water. 2) Provide additional 60 mL water flush before and after each bolus feed for a total of 120 ml with each bolus and total of 480 ml additional water daily. 3) Prealbumin q /; daily weights 4) Routine bowel half-way BOLUS TUBE FEEDING RECS FOR PE) Bolus feed using one bottle (237 mL) Jevity 1.5 or equivalent QID to begin at 120 mL/bolus and advance by 50 mL each bolus as tolerated to goal 2) Additional 30 mL water flush before and after each bolus feed 3) Outpatient RD to titrate to goal rate and make recommendations as as needed according to patient's estimated nutrient needs CONTINUOUS PEG TF RECS: 1) IF continuous tube feeding via PEG; recommend Jevity 1.5 or equivalent at 40ml/hr. 2) Additional water flush 150ml Q6 3) Outpatient RD to titrate to goal rate and make recommendations as as needed according to patient's estimated nutrient needs Addendum: 08/19/19 at [address] Amended: Links added.
[2019-08-19] MEDS: piperacillin/tazo 3.375gm/50ml 50 ML IV SCH ×2 (14:31→20:31)
[2019-08-19 15:00] VITALS: BP 112/52
--- NOTE | 2019-08-19 18:11 | NUR ---
Problems reprioritized. Patient report given, questions answered & plan of care reviewed with Yair HOUSTON.
--- NOTE | 2019-08-19 18:45 | NUR ---
Patient in room PCU 3028B. I have received report from ROSEMARIE RUSSELL AND ROSEMARIE HESTER and had the opportunity to ask questions and assume patient care. PATIENT ASLEEP FOR BEDSIDE REPORT. ZOSYN INFUSING AT 12.5 ML/HR PER PROVIDER ORDER. ON 2L NC AND STABLE AT THIS TIME. WILL CONTINUE TO MONITOR CLOSELY.
[2019-08-19 19:09] VITALS: BP 129/53
[2019-08-19] MEDS: pravastatin 40mg tablet PEG SCH (20:31)
[2019-08-19 23:00] VITALS: BP 114/54
[2019-08-19] MEDS ORDERED: morphine 4 MG/ML inj SYRINge IV PRN (23:55)
[2019-08-20] MEDS: piperacillin/tazo 3.375gm/50ml 50 ML IV SCH ×3 (02:00→14:00)
[2019-08-20] MEDS: ipratropium/albuterol 3ml nebule NEB SCH ×2 (02:47→08:54)
[2019-08-20 03:00] VITALS: BP 132/69
[2019-08-20] MEDS: HYDROcodone/acetaminophen 7.5MG/325MG per 15ml UD CUP PEG PRN ×2 (04:15→14:29)
[2019-08-20 05:43] LABS: BASOPHILS % (AUTO) 0.5 % (0-1); EOSINOPHILS # (AUTO) 0.2 X10'3 (0-0.9); EOSINOPHILS % (AUTO) 3.2 % (0-6); HEMATOCRIT 26.4 % (35.0-45.0); HEMOGLOBIN 8.6 g/dl (12.0-16.0); LYMPHOCYTES # (AUTO) 0.5 X10'3 (1.1-4.8); LYMPHOCYTES % (AUTO) 7.1 % (21-51); MEAN CORPUSCULAR HEMOGLOBIN 32.1 PG (27.0-31.0); MEAN CORPUSCULAR HGB CONC 32.6 g/dL (33.0-36.5); MEAN CORPUSCULAR VOLUME 98.4 FL (78-98); MEAN PLATELET VOLUME 7.2 FL (7.4-10.4); MONOCYTES # (AUTO) 0.6 X10'3 (0-0.9); MONOCYTES % (AUTO) 7.8 % (2-12); NEUTROPHILS # (AUTO) 5.9 X10'3 (1.8-7.7); NEUTROPHILS % (AUTO) 81.4 % (42-75); PLATELET COUNT 262 X10'3 (140-440); RED BLOOD COUNT 2.68 X10'6 (4.20-5.60); WHITE BLOOD COUNT 7.3 X10'3 (4.5-11.0)
[2019-08-20 05:55] LABS: PARTIAL THROMBOPLASTIN TIME 27 SECONDS (22-32)
[2019-08-20 06:06] LABS: ALANINE AMINOTRANSFERASE 20 U/L (12-78); ALBUMIN 1.7 G/DL (3.4-5.0); ALBUMIN/GLOBULIN RATIO 0.4 (1.1-1.5); ALKALINE PHOSPHATASE 59 IU/L (46-116); ANION GAP -1 (8-16); ASPARTATE AMINO TRANSFERASE 22 U/L (10-37); BILIRUBIN,TOTAL 0.3 MG/DL (0.1-1.0); BLOOD UREA NITROGEN 27 MG/DL (7-18); BUN/CREATININE RATIO 41.5 (6.6-38.0); CALCIUM 8.4 MG/DL (8.5-10.1); CHLORIDE 103 MMOL/L (99-107); CREATININE 0.65 MG/DL (0.40-0.90); GLUCOSE 122 MG/DL (70-104); MAGNESIUM 1.8 MG/DL (1.5-2.4); PHOSPHORUS 3.5 MG/DL (2.3-4.5); POTASSIUM 3.4 MMOL/L (3.5-5.1); SODIUM 142 MMOL/L (135-145); TOTAL CARBON DIOXIDE 39.9 MMOL/L (24-32); TOTAL PROTEIN 5.6 G/DL (6.4-8.2); eGFR 87 ML/MIN
[2019-08-20 06:15] VITALS: BP 117/50
--- NOTE | 2019-08-20 06:33 | NUR ---
Problems reprioritized. Patient report given, questions answered & plan of care reviewed with ROSEMARIE CHEEK.
[2019-08-20] MEDS: OLANZapine 2.5MG tablet PEG SCH (08:54)
[2019-08-20] MEDS: ESCITALOPRAM OXALATE 5 MG TABLET PEG SCH (08:58)
[2019-08-20] MEDS: lactobacillus rhamnosus 10,000 MMU CELLS/CAPSULE PEG SCH (08:58)
[2019-08-20] MEDS: furosemide 40mg/4ml inj IV SCH (08:58)
[2019-08-20] MEDS: amiodarone 200mg tablet PEG SCH (08:58)
[2019-08-20] MEDS: digoxin 125mcg (0.125mg) tablet PEG SCH (08:58)
[2019-08-20] MEDS: famotidine 20mg tablet PEG SCH (08:59)
[2019-08-20] MEDS: POTASSIUM BICARB 20meq eff tab 20 MEQ TABLET.EFF PEG PRN (10:39)
[2019-08-20 11:00] VITALS: BP 138/51
[2019-08-20] MEDS ORDERED: FURO-149 PO (11:44)
[2019-08-20] MEDS ORDERED: ZINO TP (11:44)
[2019-08-20] MEDS ORDERED: OLAN2.5T28 PEG (11:44)
[2019-08-20] MEDS ORDERED: LEVO500T2 PO (11:44)
[2019-08-20] MEDS ORDERED: POTA10TA19 PO (11:44)
--- NOTE | 2019-08-20 15:00 | NUR ---
Patient stable for discharge home with daughter and . IV removed, school bus monitor removed, rectal tube and wick removed. Patients G-tube flushed and patent. [facility] 1.2 sent home with patient. New prescription called into [facility] [address]. Discharge instructions given and reviewed with patient and daughter (Laurel) all questions answered.
== END 2019-08-20 14:59 | disposition home health service (06) | DRG 268 ==
LOC: ER 14:50 → ED HOLD 18:45 → CMPBEDREQ 07-17 00:14 → ICU 2S 07-17 00:42 → PCU 3S 08-12 16:45
PROVIDERS: ADMIT Internal Medicine Critical Care Medicine; ATTEND Internal Medicine Critical Care Medicine
PROC: 04C00ZZ Extirpation of Matter from Abdominal Aorta, Open Approach (ICD-10-PCS; 2019-07-16)
PROC: 041C0JH Bypass Right Common Iliac Artery to Right Femoral Artery with Synthetic Substitute, Open Approach (ICD-10-PCS; 2019-07-16)
PROC: 0UB00ZZ Excision of Right Ovary, Open Approach (ICD-10-PCS; 2019-07-16)
PROC: 04R00JZ Replacement of Abdominal Aorta with Synthetic Substitute, Open Approach (ICD-10-PCS; 2019-07-16)
PROC: 04CC0ZZ Extirpation of Matter from Right Common Iliac Artery, Open Approach (ICD-10-PCS; principal; 2019-07-16 18:46)
PROC: 30233N1 Transfusion of Nonautologous Red Blood Cells into Peripheral Vein, Percutaneous Approach (ICD-10-PCS; 2019-07-17)
PROC: 5A1935Z Respiratory Ventilation, Less than 24 Consecutive Hours (ICD-10-PCS; 2019-07-17)
PROC: 0BH17EZ Insertion of Endotracheal Airway into Trachea, Via Natural or Artificial Opening (ICD-10-PCS; 2019-07-17)
PROC: 30233L1 Transfusion of Nonautologous Fresh Plasma into Peripheral Vein, Percutaneous Approach (ICD-10-PCS; 2019-07-18)
PROC: 30233K1 Transfusion of Nonautologous Frozen Plasma into Peripheral Vein, Percutaneous Approach (ICD-10-PCS; 2019-07-18)
PROC: 0W9B30Z Drainage of Left Pleural Cavity with Drainage Device, Percutaneous Approach (ICD-10-PCS; 2019-07-24)
PROC: 0W9930Z Drainage of Right Pleural Cavity with Drainage Device, Percutaneous Approach (ICD-10-PCS; 2019-07-24)
PROC: 5A1945Z Respiratory Ventilation, 24-96 Consecutive Hours (ICD-10-PCS; 2019-07-25)
PROC: 0BH17EZ Insertion of Endotracheal Airway into Trachea, Via Natural or Artificial Opening (ICD-10-PCS; 2019-07-25)
DX: I71.3 Abdominal aortic aneurysm, ruptured (principal); J96.00 Acute respiratory failure, unspecified whether with hypoxia or hypercapnia; E87.2 Acidosis; J90 Pleural effusion, not elsewhere classified; R64 Cachexia; I48.20 Chronic atrial fibrillation, unspecified; Z87.442 Personal history of urinary calculi; Z85.3 Personal history of malignant neoplasm of breast; I48.91 Unspecified atrial fibrillation; E78.5 Hyperlipidemia, unspecified; J44.9 Chronic obstructive pulmonary disease, unspecified; F41.9 Anxiety disorder, unspecified; E78.00 Pure hypercholesterolemia, unspecified; N20.0 Calculus of kidney; C50.919 Malignant neoplasm of unspecified site of unspecified female breast; Z79.01 Long term (current) use of anticoagulants; Z90.721 Acquired absence of ovaries, unilateral; Z86.79 Personal history of other diseases of the circulatory system; Z86.73 Personal history of transient ischemic attack (TIA), and cerebral infarction without residual deficits; Z90.49 Acquired absence of other specified parts of digestive tract; Z88.5 Allergy status to narcotic agent; Z68.24 Body mass index [BMI] 24.0-24.9, adult
CPT/HCPCS: 32557; 36415; 36430; 36600; 49440; 70450; 71045; 71046; 71250; 71275; 74018; 74174; 74176; 76775; 76937; 80048; 80053; 80162; 81001; 82330; 82550; 82570; 82803; 82810; 82945; 82948; 83690; 83735; 83874; 83935; 84100; 84133; 84134; 84156; 84157; 84300; 84478; 84484; 85018; 85025; 85027; 85379; 85610; 85730; 86885; 86900; 86901; 86920; 87070; 87075; 87077; 87081; 87088; 87185; 87186; 87207; 88300; 88304; 88305; 88311; 89051; 92508; 92616; 93005; 93306; 94002; 94003; 94640; 94667; 94668; 94760; 96361; 96374; 97110; 97116; 97161; 97530; 97535; 99152; 99153; 99291; A4618; A6258; A6402; A6449; A7000; C1757; C1758; C1768; G0378; J0131; J0690; J0694; J0696; J1120; J1170; J1580; J1610; J1644; J1650; J1940; J2001; J2250; J2270; J2370; J2405; J2543; J2704; J2765; J3010; J3475; J3480; J3490; J7030; J7040; J7050; J7060; J7120; P9016; P9045; P9047; P9059; Q9963; Q9967